=== PATIENT | male | born 1975 | race Caucasian/White ===

== ENCOUNTER 2017-06-07 09:42 | Outpatient (CLI) | payer MEDICAID ==
[~2017-06-07 09:42] MED LIST: GADOBUTROL 10 MMOL/10 ML VIAL ONE
[2017-06-07] MEDS ORDERED: GADOBUTROL 10 MMOL/10 ML VIAL IVP ONE (10:34)
--- NOTE | 2017-06-07 11:33 | MRI Report ---
EXAM: MRI LUMBAR SPINE WITHOUT AND WITH CONTRAST EXAM DATE: 06/07/2017 10:49 AM. CLINICAL HISTORY: 41-year-old man with numbness and weakness of the left leg. COMPARISONS: None. TECHNIQUE: Multiplanar, multisequence T1-weighted and fluid-sensitive sequences of the lumbar spine f rom T12 to S1 before and after administration of intravenous contrast. Other: None. IV contrast: 10 c c Gadavist. FINDINGS: Post surgical: Status post posterior fusion of L5-S1 with bilateral pedicle screws and posterior rods . Spinal Cord: The conus terminates at L1. Cauda equina nerve roots are normal in appearance. No abnorm al enhancement. Alignment: No significant spondylolisthesis or scoliosis. Bone Marrow: Five cxt-rnw-bpzhbks lumbar vertebral bodies are present. No gross fractures or bone les ions. No bone marrow edema or abnormal enhancement. Modic type II chronic degenerative endplate betts es are present at L5-S1. Disk Levels/Facets: T12-L1: Unremarkable. L1-L2: Unremarkable. L2-L3: Unremarkable. L3-L4: Unremarkable. L4-L5: There is mild disk desiccation and height loss. Small broad-based disk bulge is present withou t significant narrowing of the central canal. Facet hypertrophy and disk osteophyte complex in the west barticular spaces result in moderate to severe narrowing of the left neural foramen and moderate narr owing on the right. L5-S1: Interbody spacer is present and there is possible solid bony fusion across the disk space. Sta tus post posterior decompression. No significant central canal stenosis. The neural foramina are obsc ured by artifact from pedicle screws. Spinal Canal: No enhancing masses within the spinal canal. No epidural abscess. Musculature: Normal. No edema, abnormal enhancement, or fatty atrophy. Other: The visualized retroperitoneum is unremarkable. IMPRESSION: 1. Status post posterior fusion and decompression of L5-S1. 2. L4-L5: Moderate to severe narrowing of the left neural foramen and moderate narrowing on the right .. Comment: The following findings are so common in adults without low back pain that while we report th eir presence, they must be interpreted with caution and in the context of the clinical situation. (Re susan Sheikh et al, Spine 2001) Prevalence of findings in patients without low back pain: Disk degeneration (any evidence): 92% Disk desiccation/T2 signal loss: 83% Disk height loss: 56% Disk bulge: 64% Disk protrusion: 32% Annular tear/high intensity zone: 38% [facility] Referring Provider Line: [phone] SITE ID: [id number]
== END 2017-06-07 09:43 | disposition home or self-care (01) ==
LOC: DI 09:42
PROVIDERS: ATTEND Family Medicine
DX: M51.36 Other intervertebral disc degeneration, lumbar region (principal); M47.896 Other spondylosis, lumbar region; Z98.1 Arthrodesis status
CPT/HCPCS: 72158; A9585

== ENCOUNTER 2017-08-14 20:04 | Outpatient (CLI) | payer MEDICAID | END 2017-08-14 20:05 | disposition EMS.NT | LOC: EMS 20:04 | PROVIDERS: ATTEND Surgery | DX: R51 Headache (principal) ==

== ENCOUNTER 2017-08-22 08:24 | Outpatient (CLI) | payer MEDICAID ==
[2017-08-22] MEDS ORDERED: REGADENOSON 0.4 MG/5 ML SYRINGE IVP ONE ×2 (08:39→15:17)
[2017-08-22 16:54] VITALS: BP 114/80
--- NOTE | 2017-08-23 08:24 | Nuclear Medicine Report ---
EXAM: SINGLE-ISOTOPE PHARMACOLOGICAL STRESS TEST WITH REGADENOSON. SINGLE-ISOTOPE AND ONE-DAY REST/STRESS M YOCARDIAL PERFUSION SCANS WITH TOMOGRAPHIC IMAGING, QUANTITATIVE ANALYSIS, WALL MOTION ANALYSIS AND C ALCULATION OF EJECTION FRACTION. EXAM DATE: 08/22/2017 03:18 PM. CLINICAL HISTORY: CHEST PAIN. COMPARISON: None available. TECHNIQUE: After the intravenous administration of 9.6 mCi of Tc-99m sestamibi, a rest myocardial perfusion scan was done with tomography. Motion correction was applied when appropriate. After an appropriate delay, pharmacological stress was performed with the infusion of 0.4 mg regadeno son per protocol. According to protocol, 44 mCi of Tc-99m sestamibi was injected for stress myocardia l perfusion scan. Motion correction was applied when appropriate. Gated tomographic images were obtained for wall motion analysis and computation of left ventricular e jection fraction. FINDINGS: There is a small, mild, partially fixed and partially reversible defect in the distal infer ior wall. No other convincing fixed or reversible perfusion defects. Wall motion analysis demonstrates no focal wall motion abnormality. The left ventricular end-diastolic volume is 90 cc. The left ventricular end-systolic volume is 32 cc . The left ventricular ejection fraction is calculated to be 64%. IMPRESSION: 1. Small, mild, partially fixed and partially reversible defect in the distal inferior wall. No other convincing fixed or reversible perfusion defects. 2. Left ventricular ejection fraction of 64%. 3. Normal segmental and global wall motion. 4. Normal left ventricular cavity size, no change with stress. [facility] Referring Provider Line: [phone] SITE ID: [id number]
== END 2017-08-22 08:25 | disposition home or self-care (01) ==
LOC: DI 08:24
PROVIDERS: ATTEND Family Medicine
DX: R07.9 Chest pain, unspecified (principal)
CPT/HCPCS: 78452; 93017; A9500; J2785; 93016; 93018

== ENCOUNTER 2017-08-23 09:33 | Outpatient (CLI) | payer MEDICAID ==
[2017-08-23 14:18] LABS: ALBUMIN 4.4 g/dL (3.2-5.5); ALBUMIN/GLOBULIN RATIO 1.7 (1.0-2.2); ALKALINE PHOSPHATASE 82 IU/L (42-121); ALT ALANINE AMINOTRANSFERASE 37 IU/L (10-60); AST ASPARTATE AMINOTRANSFERASE 29 IU/L (10-42); BILIRUBIN,TOTAL 2.3 mg/dL (0.2-1.0); BUN - BLOOD UREA NITROGEN 13 mg/dL (6-20); CALCIUM 9.1 mg/dL (8.5-10.3); CARBON DIOXIDE - CO2 24 mmol/L (21-32); CHLORIDE 108 mmol/L (101-111); CHOL/HDL RATIO 4.2 (<5.0); CHOLESTEROL 150 mg/dL; CREATININE 0.9 mg/dL (0.6-1.2); GFR - MDRD 93 (>89); GLUCOSE 98 mg/dL (70-100); HDL CHOLESTEROL 36 mg/dL; LDL CHOLESTEROL,CALCULATED 88 mg/dL; LDL/HDL RATIO 2.4 (<3.6); SODIUM 140 mmol/L (135-145); VLDL CHOLESTEROL 26 mg/dL
== END 2017-08-23 09:34 | disposition home or self-care (01) ==
LOC: LAB.WCP 09:33
PROVIDERS: ATTEND Family Medicine
DX: E78.5 Hyperlipidemia, unspecified (principal)
CPT/HCPCS: 36415; 80053; 80061; 83721

== ENCOUNTER 2017-08-30 16:51 | Outpatient (CLI) | payer MEDICAID ==
--- NOTE | 2017-08-31 16:32 | MRI Report ---
EXAM: MRI BRAIN WITHOUT CONTRAST EXAM DATE: 08/30/2017 05:40 PM. CLINICAL HISTORY: Cogwheel rigidity, migraine. COMPARISON: None. TECHNIQUE: Multiplanar, multisequence T1-weighted and fluid-sensitive MR sequences of the brain were performed. Sequences optimized for routine evaluation. Other: None. IV Contrast: None. FINDINGS: The diffusion-weighted images are normal. There is no evidence of acute or subacute cerebral infarcti on. The pituitary and sella are normal. The craniocervical junction is normal. The corpus callosum is of normal size and configuration. The cerebral vascular flow voids are patent. There is an old lacunar infarction versus perivascular s pace within the right putamen measuring 4 mm. Overall, perivascular space would be favored. There are a few punctate nonspecific T2 hyperintensities of the subcortical white matter of the left frontal lobe. Cerebral volume and ventricular size are normal. The T2* sequence is normal. There is no evidence of subacute or chronic hemorrhage. The imaged portions of the paranasal sinuses are normally aerated. The bilateral parotid spaces exhib it normal signal intensity. The optic nerves demonstrate symmetric signal intensity and size. The cerebral vascular flow voids a re patent. IMPRESSION: 1. There are a few nonspecific punctate T2 hyperintensities of the subcortical white matter of the le ft frontal lobe. The overall appearance would favor that of hyperintensities seen in migraine. 2. There is a T2 hyperintense lesion demonstrated within the right putamen which overall would somewh at favor a perivascular space over that of an old lacunar infarction. Recommend correlation with clin ical symptoms. 3. There is no evidence of brain mass. 4. There is no evidence of acute or subacute cerebral infarction. Referring Provider Line: [phone] SITE ID: [id number]
== END 2017-08-30 16:52 | disposition home or self-care (01) ==
LOC: DI 16:51
PROVIDERS: ATTEND Family Medicine
DX: R29.898 Other symptoms and signs involving the musculoskeletal system (principal); G43.909 Migraine, unspecified, not intractable, without status migrainosus
CPT/HCPCS: 70551

== ENCOUNTER 2017-09-17 14:49 | Outpatient (CLI) | payer MEDICAID | END 2017-09-17 14:50 | LOC: LAB.WCP 14:49 | PROVIDERS: ATTEND Family Medicine | DX: M62.81 Muscle weakness (generalized) (principal); R29.898 Other symptoms and signs involving the musculoskeletal system | CPT/HCPCS: 36415; 83519 ==

== ENCOUNTER 2017-11-01 10:32 | Outpatient (CLI) | payer MEDICAID ==
[2017-11-01 12:42] LABS: BASOPHILS % (AUTO) 0.9 %; EOSINOPHILS # (AUTO) 0.2 10^3/uL (0.0-0.7); EOSINOPHILS % (AUTO) 3.9 %; HGB - HEMOGLOBIN 15.2 g/dL (14.0-18.0); LYMPHOCYTES # (AUTO) 1.2 10^3/uL (1.5-3.5); LYMPHOCYTES % (AUTO) 25.3 %; MEAN CORPUSCULAR HEMOGLOBIN 30.1 pg (27.0-31.0); MEAN CORPUSCULAR HGB CONC 34.2 g/dL (32.0-36.0); MEAN PLATELET VOLUME 7.7 fL (7.4-11.4); MONOCYTES # (AUTO) 0.4 10^3/uL (0.0-1.0); MONOCYTES % (AUTO) 7.7 %; NEUTROPHILS # (AUTO) 2.9 10^3/uL (1.5-6.6); NEUTROPHILS % (AUTO) 62.2 %; PLT - PLATELET COUNT 255 10^3/uL (130-450); RED BLOOD COUNT 5.06 10^6/uL (4.70-6.10); RED CELL DISTRIBUTION WIDTH 12.8 % (12.0-15.0); WHITE BLOOD COUNT 4.7 x10^3/uL (4.8-10.8)
[2017-11-01 12:57] LABS: ALBUMIN 4.2 g/dL (3.2-5.5); ALBUMIN/GLOBULIN RATIO 1.4 (1.0-2.2); ALKALINE PHOSPHATASE 76 IU/L (42-121); ALT ALANINE AMINOTRANSFERASE 27 IU/L (10-60); AST ASPARTATE AMINOTRANSFERASE 24 IU/L (10-42); BILIRUBIN,TOTAL 2.9 mg/dL (0.2-1.0); BUN - BLOOD UREA NITROGEN 14 mg/dL (6-20); CARBON DIOXIDE - CO2 24 mmol/L (21-32); CHLORIDE 105 mmol/L (101-111); CHOL/HDL RATIO 3.4 (<5.0); CHOLESTEROL 124 mg/dL; CREATININE 0.8 mg/dL (0.6-1.2); GFR - MDRD 107 (>89); GLUCOSE 107 mg/dL (70-100); HDL CHOLESTEROL 36 mg/dL; LDL CHOLESTEROL,CALCULATED 61 mg/dL; LDL/HDL RATIO 1.7 (<3.6); SODIUM 136 mmol/L (135-145); TOTAL PROTEIN 7.1 g/dL (6.7-8.2); VLDL CHOLESTEROL 27 mg/dL
== END 2017-11-01 10:33 | disposition home or self-care (01) ==
LOC: LAB.WCP 10:32
PROVIDERS: ATTEND Family Medicine
DX: E78.5 Hyperlipidemia, unspecified (principal); I10 Essential (primary) hypertension
CPT/HCPCS: 36415; 80053; 80061; 83721; 85025

== ENCOUNTER 2018-02-03 10:34 | Outpatient (CLI) | payer MEDICAID ==
--- NOTE | 2018-02-21 16:14 | Ultrasound Report ---
Reason: SCROTAL MASS Procedure Date: 02/03/2018 Accession Number: [id number] / [id number] Procedure: US - Testicle CPT Code: FULL RESULT: EXAM: SCROTAL ULTRASOUND EXAM DATE: 02/03/2018 12:29 PM. CLINICAL HISTORY: Scrotal mass. COMPARISON: None. TECHNIQUE: Real-time scanning was performed with static images obtained. Color-flow images were utilized. FINDINGS: Right: Testis: 5.2 x 3.1 x 3.4 cm. Normal size and echotexture. No mass, calcification, or abnormal blood flow. Epididymis: 1.4 x 0.8 x 1.2 cm. Normal size and echotexture. Note is made of epididymal head cysts. No suspicious mass or abnormal blood flow. Hydrocele: Small hydrocele. Within the hydrocele is a 0.7 cm mobile shadowing mass most compatible with a calcified calculus. Varicocele: None. Left: Testis: 4.5 x 2.2 x 3.0 cm. Normal size and echotexture. No mass, calcification, or abnormal blood flow. What appears is a geographically hypoechoic area in the left testicle is felt to represent variant appearance of the rete testis. Epididymis: 0.9 x 0.9 x 1.3 cm. Normal size and echotexture. No mass or abnormal blood flow. Hydrocele: None. Varicocele: None. IMPRESSION: Small right hydrocele containing what appears most compatible with a calcified calculus external to the testicle itself. The etiology and significance of this finding is unclear. [facility]
== END 2018-02-03 10:35 | disposition home or self-care (01) ==
LOC: DI 10:34
PROVIDERS: ATTEND Family Medicine
DX: N43.3 Hydrocele, unspecified (principal)
CPT/HCPCS: 76870

== ENCOUNTER 2018-06-17 09:15 | Outpatient (CLI) | payer MEDICAID ==
--- NOTE | 2018-06-17 12:40 | XRAY Report ---
Reason: LUMBAR RADICULOPATHY Procedure Date: 06/17/2018 Accession Number: [id number] / [id number] Procedure: WCP - Lumbar Spine 2 View CPT Code: FULL RESULT: EXAM: LUMBOSACRAL SPINE RADIOGRAPHY EXAM DATE: 06/17/2018 09:28 AM. CLINICAL HISTORY: Lumbar radiculopathy. COMPARISONS: Lumbar spine with and without contrast 06/07/2017 10:00 AM. TECHNIQUE: 2 views. FINDINGS: Alignment: Stable compared to 2018, no interval scoliosis or listhesis. Bones: Status post posterior L5-S1 fusion with interbody graft, evaluation of which is limited by motion on the lateral radiograph. Within this limitation, no overt failure is identified, stable arrangement compared to 2018. Five jah-vms-xzkfgec lumbar vertebral bodies are present. No fractures or bone lesions. Disks: Normal. Disk heights are maintained. Facets: Moderate facet arthropathy is seen at L4-L5 above the fused level. Sacroiliac Joints: Unremarkable. Soft Tissues: Normal. The visualized bowel gas pattern is normal. IMPRESSION: Limited lateral radiograph with no evidence of interval hardware failure. L4-L5 facet arthropathy. [facility]
== END 2018-06-17 09:16 | disposition home or self-care (01) ==
LOC: DI.WCP 09:15
PROVIDERS: ATTEND Family Medicine
DX: M47.9 Spondylosis, unspecified (principal); Z98.1 Arthrodesis status
CPT/HCPCS: 72100

== ENCOUNTER 2018-10-09 16:39 | Outpatient (CLI) | payer MEDICAID ==
--- NOTE | 2018-10-10 09:47 | XRAY Report ---
Reason: THUMB PAIN,LEFT Procedure Date: 10/09/2018 Accession Number: [id number] / [id number] Procedure: XR - Hand 3 View LT CPT Code: FULL RESULT: EXAM: LEFT HAND RADIOGRAPHY, 3 VIEWS EXAM DATE: 10/09/2018 04:46 PM. CLINICAL HISTORY: 43-year-old male with left-sided thumb pain. COMPARISON: None. TECHNIQUE: Frontal, lateral and oblique views. FINDINGS: Bones: Normal. No fractures or bone lesions. 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 Wrist joints unremarkable. No subluxations or joint effusion. Soft Tissues: Normal. No soft tissue swelling. 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 Generalized osteoarthritic changes in the IP joints, most prominent in the distal second through fifth digits and proximal fifth digit. No fracture or other osseous abnormality. [facility]
== END 2018-10-09 16:40 | disposition home or self-care (01) ==
LOC: DI 16:39
PROVIDERS: ATTEND Family Medicine
DX: M18.12 Unilateral primary osteoarthritis of first carpometacarpal joint, left hand (principal); M19.042 Primary osteoarthritis, left hand

== ENCOUNTER 2018-11-26 13:21 | Outpatient (CLI) | payer MEDICAID ==
--- NOTE | 2018-11-27 09:54 | XRAY Report ---
Reason: DYSPAGIA, UNSPECIFIED Procedure Date: 11/26/2018 Accession Number: [id number] / [id number] Procedure: FL - Modified Barium Swallow W/SP CPT Code: FULL RESULT: EXAM: MODIFIED BARIUM SWALLOW EXAM DATE: 11/26/2018 02:11 PM. CLINICAL HISTORY: Dysphagia, unspecified. COMPARISON: None. TECHNIQUE: Under the direction of speech pathology, patient swallowed various consistencies of barium under lateral fluoroscopic observation of the neck. Fluoroscopy Time: 36 seconds. Number of Images: 22. FINDINGS: Swallowing Mechanism: Normal oral phase and delayed swallowing reflex. Airway Protection: Delayed epiglottic motion. No episodes of tracheal penetration or aspiration with all consistencies of barium. Pharynx: Normal. No significant vallecular or piriform sinus contrast pooling. Other: None. IMPRESSION: Abnormal swallowing with no aspiration identified. [facility]
== END 2018-11-26 13:22 | disposition home or self-care (01) ==
LOC: DI 13:21
PROVIDERS: ATTEND Family Medicine
DX: R13.10 Dysphagia, unspecified (principal)
CPT/HCPCS: 74230

== ENCOUNTER 2019-02-14 08:00 | Outpatient (CLI) | payer MEDICAID ==
--- NOTE | 2019-02-16 00:19 | Ultrasound Report ---
Reason: HYPERBILIRUBINEMIA Procedure Date: 02/14/2019 Accession Number: [id number] / [id number] Procedure: US - Abdomen Limited CPT Code: FULL RESULT: EXAM: ABDOMEN ULTRASOUND LIMITED, RUQ EXAM DATE: 02/14/2019 08:42 AM. CLINICAL HISTORY: HYPERBILIRUBINEMIA. COMPARISON: None. TECHNIQUE: Real-time scanning was performed with static images obtained. FINDINGS: Liver: Diffusely echogenic. 20.2 cm. Main portal vein flow: Hepatopetal. Gallbladder: No stones, wall thickening, or sonographic Bailey's sign. Biliary System: CBD measures 6 mm. No intrahepatic ductal dilatation. Other: Right kidney demonstrates no hydronephrosis. Visualized portions of the pancreas are unremarkable. IMPRESSION: No acute sonographic abnormalities. Increased liver echogenicity, most commonly seen with steatosis. [facility]
== END 2019-02-14 08:01 | disposition home or self-care (01) ==
LOC: DI 08:00
PROVIDERS: ATTEND Nurse Practitioner Gerontology
DX: E80.6 Other disorders of bilirubin metabolism (principal)
CPT/HCPCS: 76705

== ENCOUNTER 2019-03-03 09:44 | Day surgery (SDC) | payer MEDICAID ==
[2019-03-03] MEDS ORDERED: LACTATED RINGERS 1,000 ML IV ONE (10:04)
[2019-03-03] MEDS ORDERED: LIDO GARGLE 30 ML BOTTLE ONE (10:59)
[2019-03-03] MEDS ORDERED: MIDAZOLAM 2 MG/2 ML VIAL IVP ONE (11:03)
[2019-03-03] MEDS ORDERED: fentaNYL 250 MCG/5 ML VIAL IVP ONE (11:03)
[2019-03-03] MEDS ORDERED: LIDO GARGLE 30 ML BOTTLE PO ONE (11:11)
[2019-03-03 11:52] VITALS: BP 123/100
== END 2019-03-03 09:45 | disposition home or self-care (01) ==
LOC: SDS 09:44
PROVIDERS: ATTEND Internal Medicine Gastroenterology
PROC: 0DB78ZX Excision of Stomach, Pylorus, Via Natural or Artificial Opening Endoscopic, Diagnostic (ICD-10-PCS; 2019-03-03)
PROC: 0DB18ZX Excision of Upper Esophagus, Via Natural or Artificial Opening Endoscopic, Diagnostic (ICD-10-PCS; 2019-03-03)
PROC: 0DB38ZX Excision of Lower Esophagus, Via Natural or Artificial Opening Endoscopic, Diagnostic (ICD-10-PCS; principal; 2019-03-03 11:30)
DX: R13.10 Dysphagia, unspecified (principal); K21.9 Gastro-esophageal reflux disease without esophagitis; K31.9 Disease of stomach and duodenum, unspecified; I10 Essential (primary) hypertension; F17.290 Nicotine dependence, other tobacco product, uncomplicated; Z79.899 Other long term (current) drug therapy; Z87.11 Personal history of peptic ulcer disease; Z98.1 Arthrodesis status; Z80.0 Family history of malignant neoplasm of digestive organs
CPT/HCPCS: 43239; A9270; J3010; J7120

== ENCOUNTER 2019-08-28 10:26 | Outpatient (CLI) | payer MEDICAID ==
--- NOTE | 2019-08-29 06:12 | XRAY Report ---
Reason: ARTHRODESIS Procedure Date: 08/28/2019 Accession Number: [id number] / [id number] Procedure: XR - Lumbar Spine Complete CPT Code: Final Report FULL RESULT: EXAM: LUMBOSACRAL SPINE RADIOGRAPHY EXAM DATE: 08/28/2019 10:42 AM. CLINICAL HISTORY: Arthrodesis. COMPARISONS: LUMBAR SPINE 2 VIEW 06/17/2018 9:14 AM. TECHNIQUE: 4 views. FINDINGS: Alignment: No acute malalignment. Mild anterolisthesis of L4 on L5. Bones and disks: Post L4-S1 posterior fusion and disk replacements. Hardware appears unremarkable. Other disk levels are well maintained. Soft Tissues: Normal. The visualized bowel gas pattern is normal. IMPRESSION: Satisfactory appearance post L4-S1 posterior fusion and disk replacements. [facility]
== END 2019-08-28 10:27 | disposition home or self-care (01) ==
LOC: DI 10:26
PROVIDERS: ATTEND Physician Assistant
DX: Z98.1 Arthrodesis status (principal)
CPT/HCPCS: 72110

== ENCOUNTER 2020-03-14 10:50 | Outpatient (CLI) | payer MEDICAID ==
[2020-03-14 18:41] LABS: BASOPHILS # (AUTO) 0.1 10^3/uL (0.0-0.1); EOSINOPHILS # (AUTO) 0.2 10^3/uL (0.0-0.7); EOSINOPHILS % (AUTO) 3.1 %; HGB - HEMOGLOBIN 14.9 g/dL (14.0-18.0); LYMPHOCYTES % (AUTO) 16.5 %; MEAN CORPUSCULAR HEMOGLOBIN 30.2 pg (27.0-31.0); MEAN CORPUSCULAR HGB CONC 33.3 g/dL (32.0-36.0); MEAN CORPUSCULAR VOLUME 90.5 fL (80.0-94.0); MEAN PLATELET VOLUME 9.8 fL (7.4-11.4); MONOCYTES # (AUTO) 0.4 10^3/uL (0.0-1.0); NEUTROPHILS # (AUTO) 4.5 10^3/uL (1.5-6.6); NEUTROPHILS % (AUTO) 73.1 %; PLT - PLATELET COUNT 267 10^3/uL (130-450); RED BLOOD COUNT 4.94 10^6/uL (4.70-6.10); RED CELL DISTRIBUTION WIDTH 12.5 % (12.0-15.0); WHITE BLOOD COUNT 6.1 x10^3/uL (4.8-10.8)
[2020-03-14 19:12] LABS: ALBUMIN 4.3 g/dL (3.2-5.5); ALBUMIN/GLOBULIN RATIO 1.6 (1.0-2.2); BILIRUBIN,TOTAL 3.6 mg/dL (0.2-1.0); CALCIUM 9.4 mg/dL (8.5-10.3); CREATININE 0.9 mg/dL (0.6-1.2)
== END 2020-03-14 23:59 | disposition home or self-care (01) ==
LOC: LAB.WCP 10:50
PROVIDERS: ATTEND Family Medicine
DX: E78.5 Hyperlipidemia, unspecified (principal); I10 Essential (primary) hypertension; E80.6 Other disorders of bilirubin metabolism; M54.16 Radiculopathy, lumbar region; K21.9 Gastro-esophageal reflux disease without esophagitis; F31.9 Bipolar disorder, unspecified
CPT/HCPCS: 36415; 80053; 84443; 85025

== ENCOUNTER → 2020-04-01 | Outpatient (CLI) | payer MEDICAID | LOC: LAB.WCP 08:00 | PROVIDERS: ATTEND Surgery | DX: Z01.818 Encounter for other preprocedural examination (principal); L72.9 Follicular cyst of the skin and subcutaneous tissue, unspecified; L72.3 Sebaceous cyst; Z20.828 Contact with and (suspected) exposure to other viral communicable diseases ==

== ENCOUNTER 2020-04-05 09:05 | Day surgery (SDC) | payer MEDICAID ==
[~2020-04-05 09:05] MED LIST changes: +BUPIVACAINE 0.25% PF 30 ML VIAL ONE; +BUPIVACAINE 0.5%-EPI 1:200000 PF 30 ML VIAL ONE; +CEFAZOLIN SODIUM IN 0.9 % NACL 2 GM/100 ML BAG IV ONE; -GADOBUTROL 10 MMOL/10 ML VIAL ONE; +LACTATED RINGERS 1,000 ML IV ONE
--- NOTE | 2020-04-05 10:11 | ANESTHESIA ---
Pre-Anesthesia VS, & Labs - Diagnosis right posterior leg cyst, left earlobe cyst - Procedure removal right posterior thigh cyst and left earlobe cyst Vital Signs: Temp Pulse Resp BP Pulse Ox 36.3 C L 85 16 129/89 H 96 04/05/20 09:10 04/05/20 09:10 04/05/20 09:10 04/05/20 09:10 04/05/20 09:10 Height: 6 ft 1 in Weight (kg): 98.2 kg Body Mass Index: 28.5 BMI Classification: Overweight - NPO >8 hours Home Medications and Allergies Home Medications: Ambulatory Orders Cholecalciferol [Vitamin D3] 50,000 unit PO OAW 03/29/20 Famotidine [Acid-Pep] 20 mg PO BID 03/29/20 Amitriptyline HCl 100 mg PO QPM 03/03/19 Clonidine HCl [Clonidine HCl ER] 0.2 mg PO QPM 03/03/19 [place] Carbonate 1,200 mg PO DAILY 03/03/19 Omeprazole 40 mg PO DAILY 03/03/19 Cholecalciferol [Vitamin D3] 50,000 unit PO OAW 03/29/20 Famotidine [Acid-Pep] 20 mg PO BID 03/29/20 Allergies/Adverse Reactions: Allergies Allergy/AdvReac Type Severity Reaction Status Date / Time No Known Drug Allergies Allergy Verified 03/03/19 10:07 Anes History & Medical History - Anesthetic History Anesthesia Complications: reports: No previous complications - Medical History Cardiovascular: reports: Hypertension, High cholesterol Pulmonary: reports: None Gastrointestinal: reports: GERD Urinary: reports: None Musculoskeletal: reports: Chronic back pain Endocrine/Autoimmune: reports: None Skin: reports: None Psychosocial: reports: Cannabis History of Cancer?: No - Surgical History Eyes Ears Nose Throat (EENT): Tonsil/Adenoidectomy Orthopedic: Spine surgery, Other Exam General: Alert Dental: WNL, Other (several missing) Mouth Opening: Greater than 4 Fingerbreadths Neck Mobility: Normal Mallampati classification: II Thyromental Distance: greater than 6 cm Respiratory: Lungs clear Cardiovascular: Regular rate Plan Anesthesia Type: General Consent for Procedure(s) Verified and Reviewed: Yes Code Status: Attempt Resuscitation ASA classification: 2-Mild systemic disease Is this case an emergency?: No
[2020-04-05] MEDS ORDERED: ATROPINE ABBOJECT 1 MG/10 ML SYRINGE IVP PRN (10:13)
[2020-04-05] MEDS ORDERED: ONDANSETRON 4 MG/2 ML VIAL IVP PRN (10:13)
[2020-04-05] MEDS ORDERED: MORPHINE 2 MG/ML CARPUJECT IVP PRN (10:13)
[2020-04-05] MEDS ORDERED: NALOXONE 0.4 MG/ML VIAL IVP PRN (10:13)
[2020-04-05] MEDS ORDERED: fentaNYL 100 MCG/2 ML VIAL IVP PRN (10:13)
[2020-04-05] MEDS ORDERED: METOCLOPRAMIDE 10 MG/2 ML VIAL IVP PRN (10:13)
[2020-04-05] MEDS ORDERED: ePHEDrine 50 MG/ML VIAL IVP PRN (10:13)
[2020-04-05] MEDS ORDERED: HYDROmorphone 0.5 MG/0.5 ML SYRINGE IVP PRN (10:13)
[2020-04-05] MEDS ORDERED: BACITRACIN ZINC OINT 1 PACKET TOP ONE (10:47)
[2020-04-05] MEDS ORDERED: MIDAZOLAM 2 MG/2 ML VIAL ONE (10:49)
[2020-04-05] MEDS ORDERED: PROPOFOL 200 MG/20 ML VIAL IVP ONE (10:50)
[2020-04-05] MEDS ORDERED: LIDOCAINE-MPF 2% 5 ML VIAL ONE (10:50)
[2020-04-05] MEDS ORDERED: LACTATED RINGERS 1,000 ML IV SCH (11:00)
[2020-04-05] MEDS ORDERED: BUPIVACAINE 0.25% PF 30 ML VIAL SUBQ ONE ×2 (11:17)
[2020-04-05] MEDS ORDERED: ONDANSETRON 4 MG/2 ML VIAL ONE (11:21)
[2020-04-05] MEDS ORDERED: DEXAMETHASONE 4 MG/ML VIAL ONE (11:21)
[2020-04-05] MEDS ORDERED: KETOROLAC 30 MG/ML VIAL ONE (12:02)
[2020-04-05] MEDS ORDERED: oxyCODONE 5 MG TABLET PO PRN (12:07)
--- NOTE | 2020-04-05 12:12 | OPERATIVE REPORT ---
Operative Report - General Procedure Date: 04/05/20 Planned Procedure: removal left ear lobe cysts and right thigh cyst Pre-Op Diagnosis: left ear lobe cysts and right thigh cyst Procedure Performed: as above Post Op Diagnosis: as above - Procedure Note Primary Surgeon: anibal varela Anesthesia Technique: General LMA, Local Pathology: benign cysts. not sent Estimated Blood Loss (mL): 0 Complications: none
[2020-04-05] MEDS ORDERED: LACTATED RINGERS 1,000 ML IV ONE (12:16)
[2020-04-05 13:02] VITALS: BP 141/97
[2020-04-05] MEDS ORDERED: oxyCODONE 5 MG TABLET ONE (13:04)
--- NOTE | 2020-04-05 13:11 | ANESTHESIA POST OP EVALUATION ---
Anesthesia Post Eval - Post Anesthesia Eval Vitals: Last Vital Signs Temp 36.4 C L 04/05/20 13:01 Pulse 78 04/05/20 13:01 Resp 12 04/05/20 13:01 BP 141/97 H 04/05/20 13:01 Pulse Ox 100 04/05/20 13:01 CV Function Including HR & BP: positive: Stable Pain Control: positive: Satisfactory Nausea & Vomiting: positive: Negative Mental Status: positive: Baseline Respiratory Status: Airway Patent Hydration Status: Satisfactory Anesthesia Complications: positive: None
--- NOTE | 2020-04-05 21:52 | OPERATIVE REPORT ---
DATE OF SERVICE: 04/05/2020 Physician: Andrei Yancey MD PREOPERATIVE DIAGNOSES 1. Left earlobe epidermal inclusion cysts measuring approximately 3 mm and 5 mm. 2. Right thigh epidermal inclusion cyst measuring approximately 2.5 x 3 cm. POSTOPERATIVE DIAGNOSES 1. Left earlobe epidermal inclusion cysts measuring approximately 3 mm and 5 mm. 2. Right thigh epidermal inclusion cyst measuring approximately 2.5 x 3 cm. PROCEDURE 1. Excision of 2 left earlobe cysts. 2. Intermediate repair total 1 cm earlobe skin. 3. Excision of right thigh epidermal inclusion cyst. 4. Intermediate repair, total incision length 3 cm. SURGEON: Andrei Yancey MD ESTIMATED BLOOD LOSS: None. ANESTHESIA 1. Laryngeal mask anesthesia. 2. Local anesthesia with Marcaine. COMPLICATIONS: None. SPECIMEN: Clinically benign, not sent for pathology. INDICATIONS FOR PROCEDURE: The patient is a 44-year-old gentleman with waxing and waning left earlobe cyst inflammation and periodic infection. He has also had waxing and waning right thigh cyst inflammation and infection. He presents at a time when clinically improved. Cyst excision was recommended. Risks discussed, alternatives discussed, all questions answered, and consent obtained. DETAILS OF PROCEDURE: The patient was properly identified, brought to the operating room, and placed in a supine position. Laryngeal mask anesthesia was induced. He was prepped and draped in a sterile fashion, given preoperative antibiotics. Local anesthetic without epinephrine was also given. The right thigh cyst was first addressed. An elliptical incision oriented vertically was made around the area of periodic inflammation and with epidermal inclusion cyst. Dissection proceeded sharply followed by cutting current cautery. The cyst and surrounding inflammatory tissue was removed in its entirety back to normal healthy tissue. Hemostasis was achieved with cautery. Intermediate repair was performed. Deep subcutaneous tissue was closed with a running 2-0 Vicryl suture. Buried interrupted subdermal 3-0 Vicryl sutures were then placed. Skin was closed with a running 4-0 Monocryl subcuticular suture. Steri-Strips and dressing were applied. He tolerated this procedure well. His left ear and cheek was then prepped and draped in a sterile fashion. Again, the vertical incisions were made directly around the cyst, removing them in their entirety. Intermediate repair was performed with buried interrupted 4-0 Monocryl, followed by a running closure with 5-0 Prolene. Bacitracin was placed as a dressing. He tolerated the procedures well, was awakened and brought to recovery in good condition. TD: 04/05/2020 21:32 LUCIANA
== END 2020-04-05 09:06 | disposition home or self-care (01) ==
LOC: SDS 09:05
PROVIDERS: ATTEND Surgery
DX: L72.0 Epidermal cyst (principal); I10 Essential (primary) hypertension; F17.290 Nicotine dependence, other tobacco product, uncomplicated
CPT/HCPCS: 11403; 11440; 12032; 12051; A9270; J0690; J7120

== ENCOUNTER 2020-05-09 08:00 | Outpatient (CLI) | payer MEDICAID ==
[2020-05-09 18:48] LABS: BILIRUBIN,DIRECT 0.3 mg/dL (0.1-0.5); BILIRUBIN,INDIRECT 2.3 mg/dL; BILIRUBIN,TOTAL 2.6 mg/dL (0.2-1.0)
== END 2020-05-09 23:59 | disposition home or self-care (01) ==
LOC: LAB.WCP 08:00
PROVIDERS: ATTEND Family Medicine
DX: E80.6 Other disorders of bilirubin metabolism (principal)
CPT/HCPCS: 36415; 82247; 82248

== ENCOUNTER 2020-06-30 07:00 | Outpatient (CLI) | payer MEDICAID ==
--- NOTE | 2020-06-30 12:25 | XRAY Report ---
PROCEDURE: Abdomen Acute INDICATIONS: RUQ PAIN TECHNIQUE: One view chest and two views of the abdomen were acquired. COMPARISON: Lumbosacral spine plain film imaging 08/28/2019. FINDINGS: Surgical changes and devices: Prior lumbosacral spine fusion, no evidence of loosening or disruption. . Chest: Lungs are clear. Heart size is normal. No pleural effusions. No pneumoperitoneum. Abdomen: Bowel gas pattern is normal. No suspicious calcifications. Visualized solid organ contour s appear normal. Bones: No suspicious bony lesions. IMPRESSION: Bowel gas pattern is normal, no free air seen. No sign of intestinal obstruction or perf oration. Prior lumbosacral spine fusion procedure, appearing stable over time. Reviewed by: Duane Rosas MD on 06/30/2020 11:23 AM [facility] Approved by: Duane Rosas MD on 06/30/2020 11:23 AM [facility] Station ID: [id number]
== END 2020-06-30 23:59 | disposition home or self-care (01) ==
LOC: DI.N 07:00
PROVIDERS: ATTEND Physician Assistant Medical
DX: R10.11 Right upper quadrant pain (principal)
CPT/HCPCS: 36415; 80053; 81001; 83690; 85025; 87086

== ENCOUNTER 2020-06-30 08:00 | Outpatient (CLI) | payer MEDICAID ==
[2020-06-30 14:10] LABS: BASOPHILS # (AUTO) 0.1 10^3/uL (0.0-0.1); BASOPHILS % (AUTO) 1.2 %; EOSINOPHILS # (AUTO) 0.2 10^3/uL (0.0-0.7); EOSINOPHILS % (AUTO) 3.8 %; HCT - HEMATOCRIT 43.3 % (42.0-52.0); HGB - HEMOGLOBIN 14.4 g/dL (14.0-18.0); LYMPHOCYTES % (AUTO) 20.4 %; MEAN CORPUSCULAR HEMOGLOBIN 30.2 pg (27.0-31.0); MEAN CORPUSCULAR HGB CONC 33.3 g/dL (32.0-36.0); MEAN CORPUSCULAR VOLUME 90.8 fL (80.0-94.0); MEAN PLATELET VOLUME 9.6 fL (7.4-11.4); MONOCYTES # (AUTO) 0.3 10^3/uL (0.0-1.0); MONOCYTES % (AUTO) 6.6 %; NEUTROPHILS # (AUTO) 3.4 10^3/uL (1.5-6.6); NEUTROPHILS % (AUTO) 67.8 %; PLT - PLATELET COUNT 283 10^3/uL (130-450); RED BLOOD COUNT 4.77 10^6/uL (4.70-6.10)
[2020-06-30 14:26] LABS: BILIRUBIN,URINE NEGATIVE (NEGATIVE); GLUCOSE, URINE (UA) NEGATIVE (NEGATIVE); KETONES,URINE (UA) NEGATIVE (NEGATIVE); LEUKOCYTE ESTERASE, URINE NEGATIVE (NEGATIVE); NITRITE,URINE NEGATIVE (NEGATIVE); OCCULT BLOOD,URINE NEGATIVE (NEGATIVE); PH,URINE 7.5 PH (5.0-7.5); PROTEIN,URINE NEGATIVE (NEGATIVE); UROBILINOGEN,URINE 0.2 (NORMAL) E.U./dL (NORMAL)
[2020-06-30 14:27] LABS: CLARITY,URINE CLEAR (CLEAR)
[2020-06-30 14:42] LABS: ALBUMIN 4.6 g/dL (3.2-5.5); ALBUMIN/GLOBULIN RATIO 1.6 (1.0-2.2); BILIRUBIN,TOTAL 1.7 mg/dL (0.2-1.0); CALCIUM 10.1 mg/dL (8.5-10.3); CREATININE 0.8 mg/dL (0.6-1.2); POTASSIUM 3.8 mmol/L (3.5-5.0); TOTAL PROTEIN 7.4 g/dL (6.7-8.2)
[2020-06-30 14:52] LABS: RBC,URINE None Seen /HPF (0-5); SQUAMOUS EPITHELIAL CELL,UR RARE Squamous (<= Few); WBC,URINE 0-3 /HPF (0-3)
[2020-06-30 14:53] LABS: AMORPHOUS SEDIMENT,UR Few /LPF; BACTERIA,URINE Few /HPF (None Seen)
== END 2020-06-30 23:59 | disposition home or self-care (01) ==
LOC: LAB.N 08:00
PROVIDERS: ATTEND Physician Assistant Medical
DX: R10.11 Right upper quadrant pain (principal)
CPT/HCPCS: 36415; 80053; 81001; 83690; 85025; 87086

== ENCOUNTER 2020-12-30 08:32 | Outpatient (CLI) | payer MEDICAID ==
--- NOTE | 2020-12-30 10:17 | XRAY Report ---
PROCEDURE: Cervical Spine 2 View INDICATIONS: CHRONIC ATRAUMATIC NECK PAIN TECHNIQUE: 4 view(s) of the cervical spine were acquired. COMPARISON: 02/26/2018 FINDINGS: Bones: C5-C7 fusion hardware is intact. There is stable bone alignment from C5 through C7. Kyphosis of the upper cervical spine is present with the apex at the C3-4 level. There is grade 1 retrolisthes is C4 on 5, similar compared to prior. There are severe degenerative changes at the atlantodental int erval the lateral masses of C1 on C2 appear normal. Anterior disc height loss at C2-3 and diffuse dis c height loss at C3-4 stable. Diffuse moderate C4-5 disc height loss is also stable. No fractures or pathologic subluxation. Soft tissues: No prevertebral soft tissue swelling. IMPRESSION: 1. Stable anterior fusion hardware and osseous fusion of C5-C7. 2. Stable upper cervical kyphosis and retrolisthesis with the apex at C3-4 Reviewed by: Michelle Alonzo MD on 12/30/2020 10:15 AM PDT Approved by: Michelle Alonzo MD on 12/30/2020 10:15 AM PDT Station ID: [id number]
== END 2020-12-30 23:59 | disposition home or self-care (01) ==
LOC: DI.N 08:32
PROVIDERS: ATTEND Physician Assistant Medical
DX: M54.2 Cervicalgia (principal); Z98.1 Arthrodesis status; M43.12 Spondylolisthesis, cervical region; M40.202 Unspecified kyphosis, cervical region

== ENCOUNTER 2021-05-26 08:00 | Outpatient (CLI) | payer MEDICAID | END 2021-05-26 23:59 | LOC: LAB.N 08:00 | PROVIDERS: ATTEND Nurse Practitioner | DX: R05.9 Cough, unspecified (principal); Z20.822 Contact with and (suspected) exposure to COVID-19 ==

== ENCOUNTER 2021-08-24 09:00 | Outpatient (CLI) | payer MEDICAID ==
--- NOTE | 2021-08-24 10:14 | CT Report ---
PROCEDURE: CERVICAL SPINE WO INDICATIONS: CERVICALGIA, SP CERVICAL SPINAL FUSION TECHNIQUE: Noncontrast 3 mm thick sections acquired from the skull base to the T4 level. Sagittal and coronal r eformats were then constructed. For radiation dose reduction, the following was used: automated exp osure control, adjustment of mA and/or kV according to patient size. COMPARISON: Correlation is made with the common cervical spine plain films, 08/24/2021. Correlation is made with the prior cervical spine MRI, 07/26/2021. FINDINGS: Image quality: Excellent. Bones: No fractures or dislocations. Visualized superior ribs are intact. Anterior fixation hardware is seen, with a fusion plate at C5, C6, and C7. Disc spacers are seen with in the postoperative region. No findings of hardware failure or hardware loosening can be seen. Focal degenerative change can also be seen involving the C1-C2 interface anteriorly. There is at leas t moderate disc space narrowing seen at C3-C4. Associated endplate irregularity and sclerosis can be seen. Moderate disc osteophyte complex is seen. There is moderate to severe left-sided and at least moderate right-sided neuroforaminal narrowing. Moderate central canal narrowing is seen. Milder de generative changes are seen elsewhere. Soft tissues: Prevertebral soft tissues are normal in thickness. No paravertebral hematomas. No ap ical pneumothoraces. Mild emphysematous changes are seen in the lung apices, with subpleural bleb fo rmation. IMPRESSION: Unremarkable lower cervical spine fixation hardware. Focal C3-C4 degenerative change. Reviewed by: Johnathan Victor MD on 08/24/2021 9:13 AM [facility] Approved by: Johnathan Victor MD on 08/24/2021 9:13 AM [facility] Station ID: [id number]
--- NOTE | 2021-08-24 18:07 | XRAY Report ---
PROCEDURE: Cervical Spine 2 View INDICATIONS: CERVICALGIA, SPINAL FUSION TECHNIQUE: 3 view(s) of the cervical spine were acquired. COMPARISON: None. FINDINGS: Bones: No fractures or dislocations to the C7-T1 level. Anterior fusion is present at C5-C7, with diaz rdware intact. There is slight angulation at C2-3 with trace retrolisthesis of C4 on C5. The lateral masses of C1 appear intact on the odontoid view. No suspicious bony lesions. There is normal range of motion between flexion and extension. Angulation at C2-3 reduces with both flexion and extension. Multilevel moderate to severe disc space narrowing is present throughout the cervical spine. Soft tissues: No prevertebral soft tissue swelling. IMPRESSION: Spinal fusion as above. Reviewed by: Wendy Peña MD on 08/24/2021 5:05 PM [facility] Approved by: Wendy Peña MD on 08/24/2021 5:05 PM [facility] Station ID: [id number]
== END 2021-08-24 09:01 | disposition home or self-care (01) ==
LOC: DI 09:00
PROVIDERS: ATTEND Neurological Surgery
DX: M54.12 Radiculopathy, cervical region (principal); M54.2 Cervicalgia; Z98.1 Arthrodesis status

== ENCOUNTER 2022-01-09 09:02 | Outpatient (CLI) | payer MEDICAID ==
[2022-01-09] MEDS ORDERED: GADOBUTROL 10 MMOL/10 ML VIAL IVP ONE (10:00)
--- NOTE | 2022-01-09 12:18 | MRI Report ---
PROCEDURE: Brain W/WO INDICATIONS: NYSTAGMUS, DOUBLE VISION, WORD FINDING DIFFICULTY CONTRAST: IV CONTRAST: Gadavist ml: 8.6 TECHNIQUE: Noncontrast axial T1 spin echo, axial T2 fast spin echo, sagittal and axial FLAIR, coronal T2 fast sp in echo, axial gradient echo, axial diffusion and ADC through the brain. After the administration of contrast, axial and coronal T1 spin echo with fat saturation through the brain. COMPARISON: None. FINDINGS: Image quality: Excellent. CSF spaces: Basal cisterns are patent. No extra-axial fluid collections. Ventricles are normal in size and shape. Brain: No midline shift. No intracranial bleeds or masses. No abnormal intracranial enhancement. There is cerebral volume loss for age. There is periventricular white matter chronic small vessel is chemic change. The brainstem appears normal. Diffusion-weighted images demonstrate no acute ischemi c insults. No chronic ischemic insults. Normal intravascular flow voids are present. Skull and face: Calvarial marrow is normal in signal. Orbits appear normal. Sinuses: Sinuses and mastoids appear clear. IMPRESSION: 1. No acute intracranial process. Reviewed by: Wendy Peña MD on 01/09/2022 12:17 PM PDT Approved by: Wendy Peña MD on 01/09/2022 12:17 PM PDT Station ID: [id number]
[2022-01-09] MEDS ORDERED: GADOBUTROL 10 MMOL/10 ML VIAL ONE (12:22)
== END 2022-01-09 09:03 | disposition home or self-care (01) ==
LOC: DI 09:02
PROVIDERS: ATTEND Family Medicine
DX: H55.00 Unspecified nystagmus (principal); H53.2 Diplopia; R41.89 Other symptoms and signs involving cognitive functions and awareness; R41.3 Other amnesia; G24.01 Drug induced subacute dyskinesia; F31.9 Bipolar disorder, unspecified
CPT/HCPCS: 70553; A9585

== ENCOUNTER 2022-05-08 08:36 | Emergency (ER) | payer MEDICAID ==
[2022-05-08 09:04] LABS: BASOPHILS % (AUTO) 0.7 %; EOSINOPHILS # (AUTO) 0.2 10^3/uL (0.0-0.7); EOSINOPHILS % (AUTO) 4.8 %; HCT - HEMATOCRIT 40.3 % (42.0-52.0); HGB - HEMOGLOBIN 13.7 g/dL (14.0-18.0); LYMPHOCYTES # (AUTO) 1.1 10^3/uL (1.5-3.5); LYMPHOCYTES % (AUTO) 23.4 %; MEAN CORPUSCULAR HEMOGLOBIN 30.6 pg (27.0-31.0); MEAN CORPUSCULAR VOLUME 90.2 fL (80.0-94.0); MEAN PLATELET VOLUME 9.5 fL (7.4-11.4); MONOCYTES # (AUTO) 0.3 10^3/uL (0.0-1.0); MONOCYTES % (AUTO) 6.5 %; NEUTROPHILS % (AUTO) 64.6 %; PLT - PLATELET COUNT 217 10^3/uL (130-450); RED BLOOD COUNT 4.47 10^6/uL (4.70-6.10); RED CELL DISTRIBUTION WIDTH 12.2 % (12.0-15.0); WHITE BLOOD COUNT 4.6 x10^3/uL (4.8-10.8)
[2022-05-08 09:17] VITALS: BP 129/83
[2022-05-08 09:20] LABS: ALBUMIN 4.2 g/dL (3.2-5.5); ALBUMIN/GLOBULIN RATIO 1.8 (1.0-2.2); BILIRUBIN,TOTAL 1.6 mg/dL (0.2-1.0); CALCIUM 8.8 mg/dL (8.5-10.3); CREATININE 0.8 mg/dL (0.6-1.2); POTASSIUM 3.4 mmol/L (3.5-5.0); TOTAL PROTEIN 6.6 g/dL (6.7-8.2)
[2022-05-08] MEDS ORDERED: MORPHINE 2 MG/ML CARPUJECT IVP STA (10:06)
[2022-05-08] MEDS ORDERED: iohexoL-300 100 ML VIAL ONE (10:41)
--- NOTE | 2022-05-08 11:36 | CT Report ---
PROCEDURE: HEAD WO INDICATIONS: fall from ladder TECHNIQUE: Noncontrast 4.5 mm thick angled axial sections acquired from the foramen magnum to the vertex. For r adiation dose reduction, the following was used: automated exposure control, adjustment of mA and/or kV according to patient size. COMPARISON: None. FINDINGS: Image quality: Excellent. CSF spaces: Basal cisterns are patent. No extra-axial fluid collections. Ventricles are normal in size and shape. Brain: No midline shift. No intracranial masses or hemorrhage. Schaeffer-white matter interface is norm al. Skull and face: Calvarium and visualized facial bones are intact, without suspicious lesions. Sinuses: Visualized sinuses and mastoids are clear. IMPRESSION: 1. No acute intracranial process. Reviewed by: Wendy Peña MD on 05/08/2022 11:35 AM [facility] Approved by: Wendy Peña MD on 05/08/2022 11:35 AM [facility] Station ID: [id number]
--- NOTE | 2022-05-08 11:38 | CT Report ---
PROCEDURE: CERVICAL SPINE WO INDICATIONS: fall from ladder/pain TECHNIQUE: Noncontrast 3 mm thick sections acquired from the skull base to the T4 level. Sagittal and coronal r eformats were then constructed. For radiation dose reduction, the following was used: automated exp osure control, adjustment of mA and/or kV according to patient size. COMPARISON: CT head 05/08/2022, CT cervical spine 08/24/2021. FINDINGS: Image quality: Excellent. Bones: No fractures or dislocations. Visualized superior ribs are intact. Fusion is present from C5 through C7. Multilevel degenerative changes are present. Soft tissues: Prevertebral soft tissues are normal in thickness. No paravertebral hematomas. No ap ical pneumothoraces. IMPRESSION: No visualized fracture. Reviewed by: Wendy Peña MD on 05/08/2022 11:37 AM [facility] Approved by: Wendy Peña MD on 05/08/2022 11:37 AM [facility] Station ID: [id number]
--- NOTE | 2022-05-08 11:41 | CT Report ---
PROCEDURE: CHEST W INDICATIONS: fall from ladder/pain CONTRAST:100ml Omnipaque 300 TECHNIQUE: After the administration of intravenous contrast, 1 mm axial images were acquired from the pulmonary apices through the posterior costophrenic angles. Axial 5 mm soft tissue kernel reconstructions were performed as well as 8 mm axial MIP and coronal and sagittal 5 mm reformations. For radiation dose reduction, the following was used: automated exposure control, adjustment of mA and/or kV according to patient size. COMPARISON: None. FINDINGS: Image quality: Excellent. Lungs and pleura: No acute air space opacities. Linear opacities are present predominantly within t he bases suggestive of scarring versus atelectasis. No pleural effusions or pneumothorax. Central an d peripheral airways are patent and normal in caliber. Mediastinum: Heart size is normal. No pericardial effusion. No mediastinal or hilar adenopathy by size criteria. Thoracic aorta and central pulmonary arteries are normal in size. Esophagus is nelson l in caliber. No hiatal hernia. Bones and chest wall: No suspicious bony lesions. No vertebral body compression fractures. No axil cheikh or supraclavicular adenopathy by size criteria. The thyroid is normal in size and there are no incidental findings.. Partially visualized lumbar fixation rods and anterior cervical fusion are note d. Abdomen: Visualized upper abdominal solid organs appear normal. Upper abdominal bowel loops are nor mal in caliber. IMPRESSION: No visualized acute osseous or visceral injury. CLINICAL RECOMMENDATION STATEMENTS: In patients <35 years with an ITN detected on CT, MRI, or extrathyroidal ultrasound, the Committee re commends further evaluation with dedicated thyroid ultrasound if the nodule is "e1 cm and has no susp icious imaging features, and if the patient has normal life expectancy. In patients "e35 years with an ITN detected on CT, MRI, or extrathyroidal ultrasound, the Committee r ecommends further evaluation with dedicated thyroid ultrasound if the nodule is "e1.5 cm and has no s uspicious imaging features, and if the patient has normal life expectancy. (ACR, 2014) Reviewed by: Wendy Peña MD on 05/08/2022 11:40 AM PST Approved by: Wendy Peña MD on 05/08/2022 11:40 AM PST Station ID: [id number]
--- NOTE | 2022-05-08 11:51 | ED Physician Documentation ---
History of Present Illness - Stated complaint Stated Complaint: 5FT FALL FROM LADDER/NECK SHOULDER BACK/PX - Chief complaint Chief Complaint: Trauma Ch/Bk - History obtained from History obtained from: Patient - Additonal information Additional information: Patient is a 46-year-old with a history of tardive dyskinesia presenting for evaluation of her a fall from a ladder where he was approximately 5 feet off the ground. Patient reports he was on the ladder trying to cut a piece of antenna when he lost his balance and fell backwards. He did strike his head. He reports having poor memory at baseline is unsure if he had LOC.He reports pain to the neck and upper back.Denies any prodromal symptoms prior to the fall and states it was just due to a loss of His footing while he was on the ladder. He does not take a blood thinner.EMS was called and patient was transported with a cervical collar in place. Review of Systems Constitutional: denies: Fever Nose: denies: Congestion Cardiac: denies: Chest pain / pressure Respiratory: denies: Dyspnea GI: denies: Abdominal Pain Musculoskeletal: reports: Neck pain Neurologic: reports: Headache, Head injury PD PAST MEDICAL HISTORY - Past Medical History Cardiovascular: Hypertension, High cholesterol Respiratory: None Endocrine/Autoimmune: None GI: GERD : None HEENT: Chronic vision loss Psych: Bipolar disorder, Post traumatic stress disorder Musculoskeletal: Chronic back pain Derm: None - Past Surgical History Ortho: Spine surgery, Other HEENT: Tonsil/Adenoidectomy - Present Medications Home Medications: Ambulatory Orders Medication Instructions Recorded Confirmed [place] Carbonate 1,200 mg PO DAILY 03/03/19 05/08/22 Cholecalciferol [Vitamin D3] 50,000 unit PO OAW 03/29/20 05/08/22 Deutetrabenazine [Austedo] 12 mg ORAL TID 05/08/22 05/08/22 Dextroamphetamine/Amphetamine 15 mg ORAL TID 05/08/22 05/08/22 [Adderall 15 mg Tablet] [place] ER [Lithobid] 300 mg ORAL HS 05/08/22 05/08/22 clonazePAM [Clonazepam] 1 mg ORAL TID 05/08/22 05/08/22 lamoTRIgine [Lamictal] 200 mg PO DAILY PM 05/08/22 05/08/22 - Allergies Allergies/Adverse Reactions: Allergies Allergy/AdvReac Type Severity Reaction Status Date / Time No Known Drug Allergies Allergy Verified 03/03/19 10:07 PD ED PE NORMAL - General General: Alert and oriented X 3, No acute distress, Well developed/nourished - HEENT HEENT: Atraumatic - Neck Neck: Supple, no meningeal sign, No bony TTP (Mild midline cervical tenderness, c-collar kept in place). No: C-Spine cleared by NEXUS criteria - Cardiac Cardiac: RRR, No murmur - Respiratory Respiratory: No respiratory distress, Clear bilaterally - Abdomen Abdomen: Soft, Non tender - Back Back: No spinal TTP - Derm Derm: Warm and dry - Extremities Extremities: No deformity - Neuro Neuro: Alert and oriented X 3, gas manager 2-12 intact, No motor deficit, No sensory deficit, Normal speech Eye Opening: Spontaneous Motor: Obeys Commands Verbal: Oriented GCS Score: 15 Results - Vitals Vitals: Vital Signs - 24 hr 05/08/22 05/08/22 08:48 09:16 Temperature 36.6 C Heart Rate 69 63 Respiratory 18 18 Rate Blood Pressure 134/83 H 129/83 H O2 Saturation 98 99 Oxygen O2 Source Room air - Labs Labs: Laboratory Tests 05/08/22 05/08/22 09:00 09:00 WBC 4.6 L RBC 4.47 L Hgb 13.7 L Hct 40.3 L MCV 90.2 MCH 30.6 MCHC 34.0 RDW 12.2 Plt Count 217 MPV 9.5 Neut # (Auto) 3.0 Lymph # (Auto) 1.1 L [place] # (Auto) 0.3 Eos # (Auto) 0.2 Baso # (Auto) 0.0 Absolute Nucleated RBC 0.00 Nucleated RBC % 0.0 Sodium 135 Potassium 3.4 L Chloride 103 Carbon Dioxide 24 Anion Gap 8.0 BUN 11 Creatinine 0.8 Estimated GFR (MDRD) 105 Glucose 109 H Calcium 8.8 Total Bilirubin 1.6 H AST 21 ALT 21 Alkaline Phosphatase 63 Total Protein 6.6 L Albumin 4.2 Globulin 2.4 Albumin/Globulin Ratio 1.8 PD Medical Decision Making - ED course Complexity details: reviewed results, re-evaluated patient, d/w patient, d/w family (Son at bedside) ED course: Patient was evaluated after fall from 5 foot ladder and hitting his head with questionable LOC. Patient also reported having some neck pain and upper back pain.CT of the head was obtained given the possibility for LOC As patient was unclear and presence of headache and was negative For intracranial bleed. CT head and chest were also obtained Without acute findings. I did clear patient's cervical collar from ligamentous injury on exam as well.Patient declined need for any pain medication. He is counseled on continued supportive care for any areas of pain and need for follow-up with PCP.He is ambulatory at discharge. Departure - Departure Disposition: 01 Home, Self Care Clinical Impression: Upper back strain Head injury Qualifiers: Encounter type: initial encounter Qualified Code(s): S09.90XA - Unspecified injury of head, initial encounter Condition: Stable Instructions: ED Head Injury Closed, ED Neck Back Pain General Follow-Up: Sotero Lucia MD [Primary Care Provider] - Comments: The CT scan of your head, cervical spine and chest did not show any acute injuries.You may be sore for the next several days and I would continue using anti-inflammatory medications or lidocaine patches. I would also recommend close follow-up with your primary care doctor if you continue to have any areas of aches or pains. Return to the ER with worsening symptoms such as difficulty breathing. Discharge Date/Time: 05/08/22 11:56
[2022-05-08] MEDS ORDERED: iohexoL-300 100 ML VIAL IVP ONE (15:32)
== END 2022-05-08 11:56 | disposition home or self-care (01) ==
LOC: EDUNIT# → ED 08:36
DX: S29.012A Strain of muscle and tendon of back wall of thorax, initial encounter (principal); S09.90XA Unspecified injury of head, initial encounter; W11.XXXA Fall on and from ladder, initial encounter; Y93.89 Activity, other specified
CPT/HCPCS: 36415; 70450; 71260; 72125; 80053; 85025; 96374; 99283; 99284; Q9967

== ENCOUNTER 2022-05-12 12:33 | Outpatient (CLI) | payer MEDICAID ==
--- NOTE | 2022-05-12 19:35 | XRAY Report ---
PROCEDURE: Cervical Spine Comp w/Flex/Ext INDICATIONS: NECK PAIN TECHNIQUE: 7 views of the cervical spine were acquired. COMPARISON: Most recent plain film from 08/24/2021 FINDINGS: Bones: No fractures or dislocations to the T1 level. There is intact anterior fusion hardware from C 5 through C7. Grade 1 retrolisthesis C4 on 5 and trace retrolisthesis C3 on 4, similar compared to pr ior studies. Mild endplate spurs at C3-4 level. There is reduction of the C4-5 anterolisthesis in flexion. No further retrolisthesis in extension. Mo derate bilateral bony foraminal narrowing at C4-5 as seen on oblique views. There is no motion at the fused level during flexion or extension. There is otherwise normal range of motion. There is moderate bilateral bony foraminal narrowing at the C6-7 level. Soft tissues: Prevertebral soft tissues are normal in thickness. IMPRESSION: 1. Grade 1 spondylolisthesis at C4-5 as well as motion during flexion. 2. There is also bilateral foraminal narrowing at this level. 3. Intact anterior fusion hardware from C5 through C7. 4. No significant changes compared to most recent prior study. Reviewed by: Michelle Alonzo MD on 05/12/2022 6:34 PM [place] Approved by: Michelle Alonzo MD on 05/12/2022 6:34 PM [place] Station ID: [id number]
== END 2022-05-12 12:34 | disposition home or self-care (01) ==
LOC: DI 12:33
PROVIDERS: ATTEND Nurse Practitioner
DX: M43.12 Spondylolisthesis, cervical region (principal); M48.02 Spinal stenosis, cervical region; Z98.1 Arthrodesis status

== ENCOUNTER 2022-09-25 09:43 | Outpatient (CLI) | payer MEDICAID ==
[2022-09-25 11:48] LABS: BASOPHILS # (AUTO) 0.1 10^3/uL (0.0-0.1); EOSINOPHILS # (AUTO) 0.2 10^3/uL (0.0-0.7); HCT - HEMATOCRIT 40.3 % (42.0-52.0); HGB - HEMOGLOBIN 13.5 g/dL (14.0-18.0); LYMPHOCYTES # (AUTO) 0.9 10^3/uL (1.5-3.5); LYMPHOCYTES % (AUTO) 16.9 %; MEAN CORPUSCULAR HEMOGLOBIN 30.5 pg (27.0-31.0); MEAN CORPUSCULAR HGB CONC 33.5 g/dL (32.0-36.0); MONOCYTES # (AUTO) 0.3 10^3/uL (0.0-1.0); MONOCYTES % (AUTO) 5.6 %; NEUTROPHILS # (AUTO) 3.7 10^3/uL (1.5-6.6); NEUTROPHILS % (AUTO) 73.3 %; PLT - PLATELET COUNT 233 10^3/uL (130-450); RED BLOOD COUNT 4.43 10^6/uL (4.70-6.10); RED CELL DISTRIBUTION WIDTH 11.9 % (12.0-15.0)
[2022-09-25 11:56] LABS: LITHIUM 0.85 mmol/L
[2022-09-25 12:14] LABS: ESTIMATED AVERAGE GLUCOSE 85 mg/dL (70-100); HEMOGLOBIN A1c% 4.6 % (4.27-6.07)
[2022-09-25 12:16] LABS: ALBUMIN 4.1 g/dL (3.2-5.5); ALBUMIN/GLOBULIN RATIO 1.5 (1.0-2.2); ALKALINE PHOSPHATASE 77 IU/L (42-121); ALT ALANINE AMINOTRANSFERASE 28 IU/L (10-60); AST ASPARTATE AMINOTRANSFERASE 26 IU/L (10-42); BILIRUBIN,TOTAL 1.7 mg/dL (0.2-1.0); BUN - BLOOD UREA NITROGEN 11 mg/dL (6-20); CALCIUM 9.3 mg/dL (8.5-10.3); CARBON DIOXIDE - CO2 26 mmol/L (21-32); CHLORIDE 110 mmol/L (101-111); CHOL/HDL RATIO 4.1 (<5.0); CHOLESTEROL 190 mg/dL; CREATININE 0.8 mg/dL (0.6-1.2); GFR - MDRD 104 (>89); GLUCOSE 100 mg/dL (70-100); HDL CHOLESTEROL 46 mg/dL; LDL CHOLESTEROL,CALCULATED 128 mg/dL; LDL/HDL RATIO 2.8 (<3.6); POTASSIUM 3.9 mmol/L (3.5-5.0); SODIUM 142 mmol/L (135-145); THYROID STIMULATING HORMONE 1.36 uIU/mL (0.34-5.60); TOTAL PROTEIN 6.9 g/dL (6.7-8.2); TRIGLYCERIDES 79 mg/dL; VLDL CHOLESTEROL 16 mg/dL
[2022-09-25 12:27] LABS: FOLATE 23.61 ng/mL (5.90 - >24.8)
[2022-09-25 18:27] LABS: CREATININE,URINE 82.9 mg/dL; MICROALBUM/CREATININE RATIO,UR 9.7 ug/mg (<30.0); MICROALBUMIN,URINE 0.8 mg/dL (0-300.0)
== END 2022-09-25 09:44 | disposition home or self-care (01) ==
LOC: LAB.N 09:43
PROVIDERS: ATTEND Nurse Practitioner
DX: E53.8 Deficiency of other specified B group vitamins (principal); F31.9 Bipolar disorder, unspecified; R63.4 Abnormal weight loss
CPT/HCPCS: 36415; 80053; 80061; 80178; 82043; 82570; 82607; 82746; 83036; 83721; 84443; 85025

== ENCOUNTER 2022-10-06 14:18 | Emergency (ER) | payer MEDICAID ==
--- OUTSIDE RECORDS SUMMARY | 2022-10-06 15:01 | EXTERNAL MEDICAL SUMMARY RPT | Continuity of Care Document ---
Author Name Unknown Address [address] [place] [id number] Phone Organization [facility] Address [address] [place] [phone] Phone Results/Labs test date author facility value unit interpretation Result panel 1 (unknown) (no date) (unknown) (unknown) (no value) (units unknown) (unknown) (unknown) (no date) (unknown) (unknown) #20 tabs (units unknown) (unknown) (unknown) (no date) (unknown) (unknown) (UTI, incontin ence, constipation) (units unknown) (unknown) (unknown) (no date) (unknown) (unknown) 07/04/2207/0407/04/22 Range/Units (units unknown) (unknown) (unknown) (no date) (unknown) (unknown) 07/04/22 13:10 (unit s unknown) (unknown) (unknown) (no date) (unknown) (unknown) 07/04/22 Range/Units (units unknown) (unknown) (unknown) (no date) (unknown) (unknown) 07/04/22 (units unknown) (unknown) (unknown) (no date) (unknown) (unknown) 1 tab PO Q6H P RN (Reason: pain) Qty: 10 0RF (units unknown) (unknown) (unknown) (no date) (unknown) (unknown) 1,500 mg PO Q8 H PRN (Reason: muscle spasm) Qty: 20 0RF (units unknown) (unknown) (unknown) (no date) (unknown) (unknown) 1. No acute intracranial abnormalities. (units unknown) (unknown) (unknown) (no date) (unknown) (unknown) 1. No acute os seous abnormalities. (units unknown) (unknown) (unknown) (no date) (unknown) (unknown) [address] [place] [id number] (un its unknown) (unknown) (unknown) (no date) (unknown) (unknown) 12:36 07/04/22 (unit s unknown) (unknown) (unknown) (no date) (unknown) (unknown) 12:44 07/04/22 (unit s unknown) (unknown) (unknown) (no date) (unknown) (unknown) 13:10 13:10 18:04 (u nits unknown) (unknown) (unknown) (no date) (unknown) (unknown) 14:04 (units unknown) (unknown) (unknown) (no date) (unknown) (unknown) 14:05 07/04/22 (unit s unknown) (unknown) (unknown) (no date) (unknown) (unknown) 14:30 07/04/22 (unit s unknown) (unknown) (unknown) (no date) (unknown) (unknown) 14:30 (units unknown) (unknown) (unknown) (no date) (unknown) (unknown) 15:00 07/04/22 (unit s unknown) (unknown) (unknown) (no date) (unknown) (unknown) 15:00 (units unknown) (unknown) (unknown) (no date) (unknown) (unknown) 15:30 07/04/22 (unit s unknown) (unknown) (unknown) (no date) (unknown) (unknown) 16:00 07/04/22 (unit s unknown) (unknown) (unknown) (no date) (unknown) (unknown) 16:00 (units unknown) (unknown) (unknown) (no date) (unknown) (unknown) 16:30 07/04/22 (unit s unknown) (unknown) (unknown) (no date) (unknown) (unknown) 17:00 (units unknown) (unknown) (unknown) (no date) (unknown) (unknown) 17:15 07/04/22 (unit s unknown) (unknown) (unknown) (no date) (unknown) (unknown) 17:30 07/04/22 (unit s unknown) (unknown) (unknown) (no date) (unknown) (unknown) 17:30 (units unknown) (unknown) (unknown) (no date) (unknown) (unknown) 18:00 07/04/22 (unit s unknown) (unknown) (unknown) (no date) (unknown) (unknown) 18:00 (units unknown) (unknown) (unknown) (no date) (unknown) (unknown) 18:07 07/04/22 (unit s unknown) (unknown) (unknown) (no date) (unknown) (unknown) 18:11 (units unknown) (unknown) (unknown) (no date) (unknown) (unknown) 18:30 07/04/22 (unit s unknown) (unknown) (unknown) (no date) (unknown) (unknown) 18:30 (units unknown) (unknown) (unknown) (no date) (unknown) (unknown) 18:54 07/04/22 (unit s unknown) (unknown) (unknown) (no date) (unknown) (unknown) 18:54 (units unknown) (unknown) (unknown) (no date) (unknown) (unknown) 2. Degenerativ e and postsurgical changes in cervical spine.? (units unknown) (unknown) (unknown) (no date) (unknown) (unknown) 2290 (units unknown) (unknown) (unknown) (no date) (unknown) (unknown) 46-year-old ma le presented to the emergency department with multiple complaints. (units unknown) (unknown) (unknown) (no date) (unknown) (unknown) 46-year-old ma le with history of TBI, ADHD presents with concern for possible (units unknown) (unknown) (unknown) (no date) (unknown) (unknown) ? (units unknown) (unknown) (unknown) (no date) (unknown) (unknown) ALT (<50) IU/L (unit s unknown) (unknown) (unknown) (no date) (unknown) (unknown) ALT 21 (<50) IU/L (u nits unknown) (unknown) (unknown) (no date) (unknown) (unknown) AST (17-59) IU/L (un its unknown) (unknown) (unknown) (no date) (unknown) (unknown) AST 23 (17-59) IU/L (units unknown) (unknown) (unknown) (no date) (unknown) (unknown) Accession Numb er: [id number] ?? (units unknown) (unknown) (unknown) (no date) (unknown) (unknown) Accession Numb er: [id number] ?? (units unknown) (unknown) (unknown) (no date) (unknown) (unknown) Acct:[id number] (uni ts unknown) (unknown) (unknown) (no date) (unknown) (unknown) Activity Restrictions/Addition al Instructions: (units unknown) (unknown) (unknown) (no date) (unknown) (unknown) Admin: 3 16:13 Dose: 1,000 mls/hr (units unknown) (unknown) (unknown) (no date) (unknown) (unknown) Age/Sex: 46 / M (uni ts unknown) (unknown) (unknown) (no date) (unknown) (unknown) Agree with radiology's interpretation of the imaging (units unknown) (unknown) (unknown) (no date) (unknown) (unknown) Albumin (3.5-5 .0) g/dL (units unknown) (unknown) (unknown) (no date) (unknown) (unknown) Albumin 4.5 (3 .5-5.0) g/dL (units unknown) (unknown) (unknown) (no date) (unknown) (unknown) Albumin/Globul in Ratio (1.0-2.8) (units unknown) (unknown) (unknown) (no date) (unknown) (unknown) Albumin/Globul in Ratio 1.6 (1.0-2.8) (units unknown) (unknown) (unknown) (no date) (unknown) (unknown) Alkaline Phosp hatase (38-126) U/L (units unknown) (unknown) (unknown) (no date) (unknown) (unknown) Alkaline Phosp hatase 74 (38-126) U/L (units unknown) (unknown) (unknown) (no date) (unknown) (unknown) Allergies (units unknown) (unknown) (unknown) (no date) (unknown) (unknown) Allergy/AdvRea c Type Severity Reaction Status Date / Time (units unknown) (unknown) (unknown) (no date) (unknown) (unknown) Amorphous Sediment 1 (units unknown) (unknown) (unknown) (no date) (unknown) (unknown) Amorphous Sediment ( units unknown) (unknown) (unknown) (no date) (unknown) ([place]) [place] [id number] (units unknown) (unknown) (unknown) (no date) (unknown) (unknown) Approved by: Allyssa Sherwood M.D. on 07/04/2022 at 12:28?? (units unknown) (unknown) (unknown) (no date) (unknown) (unknown) Approved by: Allyssa Sherwood M.D. on 07/04/2022 at 12:33?? (units unknown) (unknown) (unknown) (no date) (unknown) (unknown) Attestation: I personally reviewed and interpreted this imaging study as (units unknown) (unknown) (unknown) (no date) (unknown) (unknown) Attestation: I reviewed the patient's lab results. (units unknown) (unknown) (unknown) (no date) (unknown) (unknown) Attestation: I reviewed the patient's medical records. (units unknown) (unknown) (unknown) (no date) (unknown) (unknown) BACK: Nontende r without deformity or crepitance. No flank tenderness. (units unknown) (unknown) (unknown) (no date) (unknown) (unknown) BUN (9-20) mg/dL (un its unknown) (unknown) (unknown) (no date) (unknown) (unknown) BUN 16 (9-20) mg/dL (units unknown) (unknown) (unknown) (no date) (unknown) (unknown) BUN/Creatinine Ratio (6-22) (units unknown) (unknown) (unknown) (no date) (unknown) (unknown) BUN/Creatinine Ratio 17.8 (6-22) (units unknown) (unknown) (unknown) (no date) (unknown) (unknown) Baso # (Auto) (0-100) /uL (units unknown) (unknown) (unknown) (no date) (unknown) (unknown) Baso # (Auto) 100 (0-100) /uL (units unknown) (unknown) (unknown) (no date) (unknown) (unknown) Baso % (Auto) (0-2) % (units unknown) (unknown) (unknown) (no date) (unknown) (unknown) Baso % (Auto) 1.0 (0-2) % (units unknown) (unknown) (unknown) (no date) (unknown) (unknown) Bladder incont inence, Constipation, Headache (units unknown) (unknown) (unknown) (no date) (unknown) (unknown) Blood Pressure 120/83 136/89 (units unknown) (unknown) (unknown) (no date) (unknown) (unknown) Blood Pressure 136/8 6 (units unknown) (unknown) (unknown) (no date) (unknown) (unknown) Blood Pressure 141/84 H 170/95 H (units unknown) (unknown) (unknown) (no date) (unknown) (unknown) Blood Pressure 147/75 H 133/84 (units unknown) (unknown) (unknown) (no date) (unknown) (unknown) Blood Pressure 152/112 H (units unknown) (unknown) (unknown) (no date) (unknown) (unknown) Blood Pressure 152/93 H 142/102 H (units unknown) (unknown) (unknown) (no date) (unknown) (unknown) Blood Pressure 152/99 H (units unknown) (unknown) (unknown) (no date) (unknown) (unknown) Blood Pressure 172/112 H (units unknown) (unknown) (unknown) (no date) (unknown) (unknown) Blood Pressure (unit s unknown) (unknown) (unknown) (no date) (unknown) (unknown) Bones:? No fra ctures or dislocations.? There is loss of normal cervical (units unknown) (unknown) (unknown) (no date) (unknown) (unknown) Brain:? No mid line shift.? No intracranial masses or hemorrhage.? Schaeffer-white (units unknown) (unknown) (unknown) (no date) (unknown) (unknown) CARDIOVASCULAR : Regular rate and rhythm without murmurs, gallops, or rubs. (units unknown) (unknown) (unknown) (no date) (unknown) (unknown) COMPARISON:? [facility], CR, XR CERVICAL SPINE 2V OR 3V, 05/16/2022, 20:57.? (units unknown) (unknown) (unknown) (no date) (unknown) (unknown) COMPARISON:? None. ( units unknown) (unknown) (unknown) (no date) (unknown) (unknown) CSF spaces:? B keesha cisterns are patent.? No extra-axial fluid collections.? (units unknown) (unknown) (unknown) (no date) (unknown) (unknown) CT Scan Report (unit s unknown) (unknown) (unknown) (no date) (unknown) (unknown) CT neck: (units unknown) (unknown) (unknown) (no date) (unknown) (unknown) CT scan - head: (uni ts unknown) (unknown) (unknown) (no date) (unknown) (unknown) Calcium (8.4-1 0.2) mg/dL (units unknown) (unknown) (unknown) (no date) (unknown) (unknown) Calcium 9.5 (8.4-10.2) mg/dL (units unknown) (unknown) (unknown) (no date) (unknown) (unknown) Carbon Dioxide (22-32) mmol/L (units unknown) (unknown) (unknown) (no date) (unknown) (unknown) Carbon Dioxide 26 (22-32) mmol/L (units unknown) (unknown) (unknown) (no date) (unknown) (unknown) Chief complain t: Head Injury (units unknown) (unknown) (unknown) (no date) (unknown) (unknown) Chloride (98-1 07) mmol/L (units unknown) (unknown) (unknown) (no date) (unknown) (unknown) Chloride 104 ( 98-107) mmol/L (units unknown) (unknown) (unknown) (no date) (unknown) (unknown) Clinical Impression: (units unknown) (unknown) (unknown) (no date) (unknown) (unknown) Course (units unknown) (unknown) (unknown) (no date) (unknown) (unknown) Creatinine (0.66-1.25) mg/dL (units unknown) (unknown) (unknown) (no date) (unknown) (unknown) Creatinine 0.9 0 (0.66-1.25) mg/dL (units unknown) (unknown) (unknown) (no date) (unknown) (unknown) : 7 Acct:[id number] (units unknown) (unknown) (unknown) (no date) (unknown) (unknown) : 1975 (uni ts unknown) (unknown) (unknown) (no date) (unknown) (unknown) Date of Servic e: 07/04/22 (units unknown) (unknown) (unknown) (no date) (unknown) (unknown) Department for any worsening or persistent symptoms. Please take medications as (units unknown) (unknown) (unknown) (no date) (unknown) (unknown) Departure (units unknown) (unknown) (unknown) (no date) (unknown) (unknown) Dictated by: Allyssa Sherwood M.D. on 07/04/2022 at 12:27 ? ? (units unknown) (unknown) (unknown) (no date) (unknown) (unknown) Dictated by: Allyssa Sherwood M.D. on 07/04/2022 at 12:30 ? ? (units unknown) (unknown) (unknown) (no date) (unknown) (unknown) Differential Diagnosis (units unknown) (unknown) (unknown) (no date) (unknown) (unknown) Differential diagnosis: Likely closed head injury, subdural hematoma and other (units unknown) (unknown) (unknown) (no date) (unknown) (unknown) Discharge Plan (unit s unknown) (unknown) (unknown) (no date) (unknown) (unknown) Discontinued Medications (units unknown) (unknown) (unknown) (no date) (unknown) (unknown) Documented By: AB (u nits unknown) (unknown) (unknown) (no date) (unknown) (unknown) ENT: Nose with out bleeding, purulent drainage. Throat without erythema, (units unknown) (unknown) (unknown) (no date) (unknown) (unknown) ER Physician: Suzanne Funk P.A-C (units unknown) (unknown) (unknown) (no date) (unknown) (unknown) EXTREMITIES: N o edema or joint tenderness. (units unknown) (unknown) (unknown) (no date) (unknown) (unknown) EYES: Pupils e qual round and reactive. Extraocular motions intact. No scleral (units unknown) (unknown) (unknown) (no date) (unknown) (unknown) Emergency Report (un its unknown) (unknown) (unknown) (no date) (unknown) (unknown) Eos # (Auto) ( 0-450) /uL (units unknown) (unknown) (unknown) (no date) (unknown) (unknown) Eos # (Auto) 1 00 (0-450) /uL (units unknown) (unknown) (unknown) (no date) (unknown) (unknown) Eos % (Auto) (2-4) % (units unknown) (unknown) (unknown) (no date) (unknown) (unknown) Eos % (Auto) 2 .2 (2-4) % (units unknown) (unknown) (unknown) (no date) (unknown) (unknown) Estimated GFR > 60 (>60) mL/min (units unknown) (unknown) (unknown) (no date) (unknown) (unknown) Estimated GFR (>60) mL/min (units unknown) (unknown) (unknown) (no date) (unknown) (unknown) Ethyl Alcohol < 10 ( - 10) mg/dL (units unknown) (unknown) (unknown) (no date) (unknown) (unknown) Ethyl Alcohol ( - 10) mg/dL (units unknown) (unknown) (unknown) (no date) (unknown) (unknown) Exam Narrative: (uni ts unknown) (unknown) (unknown) (no date) (unknown) (unknown) Exam (units unknown) (unknown) (unknown) (no date) (unknown) (unknown) FINDINGS:? (units unknown) (unknown) (unknown) (no date) (unknown) (unknown) GASTROINTESTIN AL: Abdomen soft, non-tender, nondistended, patient has mild (units unknown) (unknown) (unknown) (no date) (unknown) (unknown) GENERAL: 46 ye ar old patient appears stated age. Well-developed patient, in mild (units unknown) (unknown) (unknown) (no date) (unknown) (unknown) General (units unknown) (unknown) (unknown) (no date) (unknown) (unknown) Globulin (1.7- 4.1) g/dL (units unknown) (unknown) (unknown) (no date) (unknown) (unknown) Globulin 2.9 (1.7-4.1) g/dL (units unknown) (unknown) (unknown) (no date) (unknown) (unknown) Glucose (70-10 0) mg/dL (units unknown) (unknown) (unknown) (no date) (unknown) (unknown) Glucose 88 (70 -100) mg/dL (units unknown) (unknown) (unknown) (no date) (unknown) (unknown) HEAD: Atraumat ic. Normocephalic. (units unknown) (unknown) (unknown) (no date) (unknown) (unknown) HPI - Head Injury (u nits unknown) (unknown) (unknown) (no date) (unknown) (unknown) HPI Narrative: (unit s unknown) (unknown) (unknown) (no date) (unknown) (unknown) Hct (41-53) % (units unknown) (unknown) (unknown) (no date) (unknown) (unknown) Hct 43.7 (41-53) % ( units unknown) (unknown) (unknown) (no date) (unknown) (unknown) He also takes methocarbamol for chronic muscle spasms and back pain and has had (units unknown) (unknown) (unknown) (no date) (unknown) (unknown) Hgb (13.5-17.5) g/dL (units unknown) (unknown) (unknown) (no date) (unknown) (unknown) Hgb 14.9 (13.5 -17.5) g/dL (units unknown) (unknown) (unknown) (no date) (unknown) (unknown) History of Pre sent Illness (units unknown) (unknown) (unknown) (no date) (unknown) (unknown) History of TBI with persistent neuro symptoms and unsteady gait with frequent (units unknown) (unknown) (unknown) (no date) (unknown) (unknown) [facility], , MR CERVICAL SPINE WO [place], 05/16/2022, 18:28. (units unknown) (unknown) (unknown) (no date) (unknown) (unknown) I agree with radiologist's interpretation of the image (units unknown) (unknown) (unknown) (no date) (unknown) (unknown) IMPRESSION:? (units unknown) (unknown) (unknown) (no date) (unknown) (unknown) INDICATIONS:? prior head injury, ligamentous injury, diaz, urine problems (units unknown) (unknown) (unknown) (no date) (unknown) (unknown) Image quality: ? Excellent.? (units unknown) (unknown) (unknown) (no date) (unknown) (unknown) Imaging Data (units unknown) (unknown) (unknown) (no date) (unknown) (unknown) Initial Vital Signs (units unknown) (unknown) (unknown) (no date) (unknown) (unknown) Initial Vital Signs: (units unknown) (unknown) (unknown) (no date) (unknown) (unknown) [facility] l [address] [place] [id number] (units unknown) (unknown) (unknown) (no date) (unknown) (unknown) (uni ts unknown) (unknown) (unknown) (no date) (unknown) (unknown) Ida (units unknown) (unknown) (unknown) (no date) (unknown) (unknown) Ketorolac Tromethamine (Ketorolac 30 Mg/Ml Vial) 15 mg IV NOW ONE (units unknown) (unknown) (unknown) (no date) (unknown) (unknown) Jd Skinner MD [Physician] (units unknown) (unknown) (unknown) (no date) (unknown) (unknown) Lab Data (units unknown) (unknown) (unknown) (no date) (unknown) (unknown) Lab Results (units unknown) (unknown) (unknown) (no date) (unknown) (unknown) Labs: (units unknown) (unknown) (unknown) (no date) (unknown) (unknown) Last Admin: 16:13 Dose: 15 mg (units unknown) (unknown) (unknown) (no date) (unknown) (unknown) Last Infusion: 07/04/22 17:12 Dose: 0 mls/hr (units unknown) (unknown) (unknown) (no date) (unknown) (unknown) Lipase (23-300) U/L (units unknown) (unknown) (unknown) (no date) (unknown) (unknown) Lipase 60 (23- 300) U/L (units unknown) (unknown) (unknown) (no date) (unknown) (unknown) Loc: ED (units unknown) (unknown) (unknown) (no date) (unknown) (unknown) Lymph # (Auto) (1046-3104) /uL (units unknown) (unknown) (unknown) (no date) (unknown) (unknown) Lymph # (Auto) 1100 (8013-0061) /uL (units unknown) (unknown) (unknown) (no date) (unknown) (unknown) Lymph % (Auto) (25-40) % (units unknown) (unknown) (unknown) (no date) (unknown) (unknown) Lymph % (Auto) 20.0 L (25-40) % (units unknown) (unknown) (unknown) (no date) (unknown) (unknown) MCH (26-34) PG (unit s unknown) (unknown) (unknown) (no date) (unknown) (unknown) MCH 30.2 (26-34) PG (units unknown) (unknown) (unknown) (no date) (unknown) (unknown) MCHC (30-36) % (unit s unknown) (unknown) (unknown) (no date) (unknown) (unknown) MCHC 34.0 (30-36) % (units unknown) (unknown) (unknown) (no date) (unknown) (unknown) MCV (80-100) fL (uni ts unknown) (unknown) (unknown) (no date) (unknown) (unknown) MCV 88.8 (80-100) fL (units unknown) (unknown) (unknown) (no date) (unknown) (unknown) MDM - Head Injury (u nits unknown) (unknown) (unknown) (no date) (unknown) (unknown) MDM Narrative (units unknown) (unknown) (unknown) (no date) (unknown) (unknown) MR#: [id number] (uni ts unknown) (unknown) (unknown) (no date) (unknown) (unknown) Medical Records (uni ts unknown) (unknown) (unknown) (no date) (unknown) (unknown) Medical decisi on making narrative: (units unknown) (unknown) (unknown) (no date) (unknown) (unknown) Medication Instructions Recorded (units unknown) (unknown) (unknown) (no date) (unknown) (unknown) Mode of arriva l: Ambulatory (units unknown) (unknown) (unknown) (no date) (unknown) (unknown) [place] # (Auto) (0-900) /uL (units unknown) (unknown) (unknown) (no date) (unknown) (unknown) [place] # (Auto) 400 (0-900) /uL (units unknown) (unknown) (unknown) (no date) (unknown) (unknown) [place] % (Auto) (3-14) % (units unknown) (unknown) (unknown) (no date) (unknown) (unknown) [place] % (Auto) 7.4 (3-14) % (units unknown) (unknown) (unknown) (no date) (unknown) (unknown) My Impression: (unit s unknown) (unknown) (unknown) (no date) (unknown) (unknown) NECK: Trachea midline. Non tender (units unknown) (unknown) (unknown) (no date) (unknown) (unknown) NEURO: AOx3. C ranial nerves 2-12 is intact, patient does have nystagmus which (units unknown) (unknown) (unknown) (no date) (unknown) (unknown) Narrative (units unknown) (unknown) (unknown) (no date) (unknown) (unknown) Narrative: (units unknown) (unknown) (unknown) (no date) (unknown) (unknown) Neut # (Auto) (9211-9423) /uL (units unknown) (unknown) (unknown) (no date) (unknown) (unknown) Neut # (Auto) 3700 (0140-7514) /uL (units unknown) (unknown) (unknown) (no date) (unknown) (unknown) Neut % (Auto) (50-75) % (units unknown) (unknown) (unknown) (no date) (unknown) (unknown) Neut % (Auto) 69.4 (50-75) % (units unknown) (unknown) (unknown) (no date) (unknown) (unknown) No Action (units unknown) (unknown) (unknown) (no date) (unknown) (unknown) Noncontrast 3 mm thick sections acquired from the skull base to the T4 level.? (units unknown) (unknown) (unknown) (no date) (unknown) (unknown) Noncontrast 4. 5 mm thick angled axial sections acquired from the foramen magnum (units unknown) (unknown) (unknown) (no date) (unknown) (unknown) Ordered: (units unknown) (unknown) (unknown) (no date) (unknown) (unknown) Ordering Provi shannan: Regla Whitman D.O. (units unknown) (unknown) (unknown) (no date) (unknown) (unknown) Orders (units unknown) (unknown) (unknown) (no date) (unknown) (unknown) Oxygen Deliver y Method Room Air 07/04/22 12:36 (units unknown) (unknown) (unknown) (no date) (unknown) (unknown) Oxygen Deliver y Method Room Air (units unknown) (unknown) (unknown) (no date) (unknown) (unknown) Oxygen Deliver y Method (units unknown) (unknown) (unknown) (no date) (unknown) (unknown) PROCEDURE:? CT CERVICAL SPINE WO CON (units unknown) (unknown) (unknown) (no date) (unknown) (unknown) PROCEDURE:? CT HEAD/BRAIN WO CON (units unknown) (unknown) (unknown) (no date) (unknown) (unknown) Patient Dispos ition: Home (units unknown) (unknown) (unknown) (no date) (unknown) (unknown) Patient History (uni ts unknown) (unknown) (unknown) (no date) (unknown) (unknown) Patient denies any recent falls, vision change, severe or persistent dizziness, (units unknown) (unknown) (unknown) (no date) (unknown) (unknown) Patient: Corbin Barrera MR#: [id number] (units unknown) (unknown) (unknown) (no date) (unknown) (unknown) Patient: Mychal Mathews (units unknown) (unknown) (unknown) (no date) (unknown) (unknown) Please call [facility] office for an appointment. Please return to the Emergency (units unknown) (unknown) (unknown) (no date) (unknown) (unknown) Plt Count (150 -400) X103/uL (units unknown) (unknown) (unknown) (no date) (unknown) (unknown) Plt Count 244 (150-400) X103/uL (units unknown) (unknown) (unknown) (no date) (unknown) (unknown) Potassium (3.4 -5.1) mmol/L (units unknown) (unknown) (unknown) (no date) (unknown) (unknown) Potassium 4.1 (3.4-5.1) mmol/L (units unknown) (unknown) (unknown) (no date) (unknown) (unknown) Prescriptions: (unit s unknown) (unknown) (unknown) (no date) (unknown) (unknown) Previous Rx's (units unknown) (unknown) (unknown) (no date) (unknown) (unknown) Procedure: CT cervical spine wo con (units unknown) (unknown) (unknown) (no date) (unknown) (unknown) Procedure: CT head/brain wo con (units unknown) (unknown) (unknown) (no date) (unknown) (unknown) Pulse Oximetry 96 97 97 (units unknown) (unknown) (unknown) (no date) (unknown) (unknown) Pulse Oximetry 97 97 (units unknown) (unknown) (unknown) (no date) (unknown) (unknown) Pulse Oximetry 97 98 (units unknown) (unknown) (unknown) (no date) (unknown) (unknown) Pulse Oximetry 97 (u nits unknown) (unknown) (unknown) (no date) (unknown) (unknown) Pulse Oximetry 98 07/04/22 12:36 (units unknown) (unknown) (unknown) (no date) (unknown) (unknown) Pulse Oximetry 98 96 (units unknown) (unknown) (unknown) (no date) (unknown) (unknown) Pulse Oximetry 98 99 (units unknown) (unknown) (unknown) (no date) (unknown) (unknown) Pulse Oximetry 98 (u nits unknown) (unknown) (unknown) (no date) (unknown) (unknown) Pulse Rate 56 L (uni ts unknown) (unknown) (unknown) (no date) (unknown) (unknown) Pulse Rate 59 L (uni ts unknown) (unknown) (unknown) (no date) (unknown) (unknown) Pulse Rate 60 61 (un its unknown) (unknown) (unknown) (no date) (unknown) (unknown) Pulse Rate 61 67 (un its unknown) (unknown) (unknown) (no date) (unknown) (unknown) Pulse Rate 63 63 66 (units unknown) (unknown) (unknown) (no date) (unknown) (unknown) Pulse Rate 64 (units unknown) (unknown) (unknown) (no date) (unknown) (unknown) Pulse Rate 66 66 (un its unknown) (unknown) (unknown) (no date) (unknown) (unknown) Pulse Rate 66 (units unknown) (unknown) (unknown) (no date) (unknown) (unknown) Pulse Rate 69 07/04/22 12:36 (units unknown) (unknown) (unknown) (no date) (unknown) (unknown) Pulse Rate 69 70 (un its unknown) (unknown) (unknown) (no date) (unknown) (unknown) RBC (4.5-5.9) X106/u L (units unknown) (unknown) (unknown) (no date) (unknown) (unknown) RBC 4.92 (4.5- 5.9) X106/uL (units unknown) (unknown) (unknown) (no date) (unknown) (unknown) RDW (11.6-14.8) % (u nits unknown) (unknown) (unknown) (no date) (unknown) (unknown) RDW 12.7 (11.6 -14.8) % (units unknown) (unknown) (unknown) (no date) (unknown) (unknown) RESPIRATORY: C lear to auscultation. Breath sounds equal bilaterally. No wheezes, (units unknown) (unknown) (unknown) (no date) (unknown) (unknown) Radiologist's Impression: (units unknown) (unknown) (unknown) (no date) (unknown) (unknown) Referrals: (units unknown) (unknown) (unknown) (no date) (unknown) (unknown) Related Data (units unknown) (unknown) (unknown) (no date) (unknown) (unknown) Respiratory Ra te 12 07/04/22 12:36 (units unknown) (unknown) (unknown) (no date) (unknown) (unknown) Respiratory Rate 12 (units unknown) (unknown) (unknown) (no date) (unknown) (unknown) Respiratory Rate 16 (units unknown) (unknown) (unknown) (no date) (unknown) (unknown) Respiratory Ra te 18 30 H (units unknown) (unknown) (unknown) (no date) (unknown) (unknown) Respiratory Ra te 21 28 H (units unknown) (unknown) (unknown) (no date) (unknown) (unknown) Respiratory Ra te 22 22 (units unknown) (unknown) (unknown) (no date) (unknown) (unknown) Respiratory Rate 23 (units unknown) (unknown) (unknown) (no date) (unknown) (unknown) Respiratory Rate 26 H (units unknown) (unknown) (unknown) (no date) (unknown) (unknown) Respiratory Ra te 27 H 26 H (units unknown) (unknown) (unknown) (no date) (unknown) (unknown) Respiratory Rate (un its unknown) (unknown) (unknown) (no date) (unknown) (unknown) Review of Systems (u nits unknown) (unknown) (unknown) (no date) (unknown) (unknown) SKIN: Multiple tattoos. No rash or erythema of visible areas (units unknown) (unknown) (unknown) (no date) (unknown) (unknown) Sagittal (units unknown) (unknown) (unknown) (no date) (unknown) (unknown) Shared decisio n making:: Shared decision-making was used in planning this (units unknown) (unknown) (unknown) (no date) (unknown) (unknown) Signed By: (units unknown) (unknown) (unknown) (no date) (unknown) (unknown) Signed (units unknown) (unknown) (unknown) (no date) (unknown) (unknown) Sinuses:? Visu alized sinuses and mastoids are clear.? (units unknown) (unknown) (unknown) (no date) (unknown) (unknown) Skull and face :? Calvarium and visualized facial bones are intact, without (units unknown) (unknown) (unknown) (no date) (unknown) (unknown) Smoking Status : Current every day smoker (units unknown) (unknown) (unknown) (no date) (unknown) (unknown) Social History (units unknown) (unknown) (unknown) (no date) (unknown) (unknown) Sodium (137-14 5) mmol/L (units unknown) (unknown) (unknown) (no date) (unknown) (unknown) Sodium 138 (13 7-145) mmol/L (units unknown) (unknown) (unknown) (no date) (unknown) (unknown) Sodium Chlorid e (Normal Saline 0.9%) 1,000 mls @ 1,000 mls/hr IV BOLUS ONE (units unknown) (unknown) (unknown) (no date) (unknown) (unknown) Soft tissues:? Prevertebral soft tissues are normal in thickness.? No (units unknown) (unknown) (unknown) (no date) (unknown) (unknown) Stand Alone Fo anay: Patient Portal/API (units unknown) (unknown) (unknown) (no date) (unknown) (unknown) Stated complai nt: hit head, constipated, headache, trouble urinating (units unknown) (unknown) (unknown) (no date) (unknown) (unknown) Stop: 07/04/22 16:02 (units unknown) (unknown) (unknown) (no date) (unknown) (unknown) Stop: 07/04/22 16:57 (units unknown) (unknown) (unknown) (no date) (unknown) (unknown) Substance Use Type: marijuana (units unknown) (unknown) (unknown) (no date) (unknown) (unknown) TECHNIQUE:? (units unknown) (unknown) (unknown) (no date) (unknown) (unknown) Temperature 97 .8 F 07/04/22 12:36 (units unknown) (unknown) (unknown) (no date) (unknown) (unknown) Temperature 97.8 F ( units unknown) (unknown) (unknown) (no date) (unknown) (unknown) Temperature (units unknown) (unknown) (unknown) (no date) (unknown) (unknown) Thank you for letting us be part of your care today in the emergency department. (units unknown) (unknown) (unknown) (no date) (unknown) (unknown) Time Seen by Provider: 07/04/22 12:46 (units unknown) (unknown) (unknown) (no date) (unknown) (unknown) Total Bilirubi n (0.2-1.3) mg/dL (units unknown) (unknown) (unknown) (no date) (unknown) (unknown) Total Bilirubi n 2.5 H (0.2-1.3) mg/dL (units unknown) (unknown) (unknown) (no date) (unknown) (unknown) Total Protein (6.3-8.2) g/dL (units unknown) (unknown) (unknown) (no date) (unknown) (unknown) Total Protein 7.4 (6.3-8.2) g/dL (units unknown) (unknown) (unknown) (no date) (unknown) (unknown) Treatment and disposition (units unknown) (unknown) (unknown) (no date) (unknown) (unknown) U Benzodiazepi araseli Scrn (Negative) (units unknown) (unknown) (unknown) (no date) (unknown) (unknown) U Benzodiazepi araseli Scrn Negative (Negative) (units unknown) (unknown) (unknown) (no date) (unknown) (unknown) U Marijuana (T HC) Screen (Negative) (units unknown) (unknown) (unknown) (no date) (unknown) (unknown) U Marijuana (T HC) Screen Positive H (Negative) (units unknown) (unknown) (unknown) (no date) (unknown) (unknown) U Methamphetam hemalatha Scrn (Negative) (units unknown) (unknown) (unknown) (no date) (unknown) (unknown) U Methamphetam hemalatha Scrn Negative (Negative) (units unknown) (unknown) (unknown) (no date) (unknown) (unknown) U Opiates 300n g/mL cut (Negative) (units unknown) (unknown) (unknown) (no date) (unknown) (unknown) U Opiates 300n g/mL cut Negative (Negative) (units unknown) (unknown) (unknown) (no date) (unknown) (unknown) U Tricyclic Antidepress (Negative) (units unknown) (unknown) (unknown) (no date) (unknown) (unknown) U Tricyclic Antidepress Negative (Negative) (units unknown) (unknown) (unknown) (no date) (unknown) (unknown) UTI. He was no t retaining urine upon arrival to the emergency department. He (units unknown) (unknown) (unknown) (no date) (unknown) (unknown) Unremarkable e xcept as noted in the HPI (units unknown) (unknown) (unknown) (no date) (unknown) (unknown) Ur Amphetamine s Screen (Negative) (units unknown) (unknown) (unknown) (no date) (unknown) (unknown) Ur Amphetamine s Screen Positive H (Negative) (units unknown) (unknown) (unknown) (no date) (unknown) (unknown) Ur Barbiturate s Screen (Negative) (units unknown) (unknown) (unknown) (no date) (unknown) (unknown) Ur Barbiturate s Screen Negative (Negative) (units unknown) (unknown) (unknown) (no date) (unknown) (unknown) Ur Culture Ind icated? Cult not indicated (units unknown) (unknown) (unknown) (no date) (unknown) (unknown) Ur Culture Indicated ? (units unknown) (unknown) (unknown) (no date) (unknown) (unknown) Ur Leukocyte E sterase (NEGATIVE) (units unknown) (unknown) (unknown) (no date) (unknown) (unknown) Ur Leukocyte E sterase Negative (NEGATIVE) (units unknown) (unknown) (unknown) (no date) (unknown) (unknown) Ur MDMA Scrn (Ecstasy) (Negative) (units unknown) (unknown) (unknown) (no date) (unknown) (unknown) Ur MDMA Scrn (Ecstasy) Negative (Negative) (units unknown) (unknown) (unknown) (no date) (unknown) (unknown) Ur Oxycodone S creen (Negative) (units unknown) (unknown) (unknown) (no date) (unknown) (unknown) Ur Oxycodone S creen Negative (Negative) (units unknown) (unknown) (unknown) (no date) (unknown) (unknown) Ur Phencyclidi ne Scrn (Negative) (units unknown) (unknown) (unknown) (no date) (unknown) (unknown) Ur Phencyclidi ne Scrn Negative (Negative) (units unknown) (unknown) (unknown) (no date) (unknown) (unknown) Ur Specific Gr avity (1.000-1.035) (units unknown) (unknown) (unknown) (no date) (unknown) (unknown) Ur Specific Gr avity 1.010 (1.000-1.035) (units unknown) (unknown) (unknown) (no date) (unknown) (unknown) Urine Appearan ce Clear (units unknown) (unknown) (unknown) (no date) (unknown) (unknown) Urine Appearance (un its unknown) (unknown) (unknown) (no date) (unknown) (unknown) Urine Bacteria (None ) (units unknown) (unknown) (unknown) (no date) (unknown) (unknown) Urine Bacteria None seen (None) (units unknown) (unknown) (unknown) (no date) (unknown) (unknown) Urine Bilirubi n (NEGATIVE) (units unknown) (unknown) (unknown) (no date) (unknown) (unknown) Urine Bilirubi n Negative (NEGATIVE) (units unknown) (unknown) (unknown) (no date) (unknown) (unknown) Urine Cocaine Screen (Negative) (units unknown) (unknown) (unknown) (no date) (unknown) (unknown) Urine Cocaine Screen Negative (Negative) (units unknown) (unknown) (unknown) (no date) (unknown) (unknown) Urine Color Yellow ( units unknown) (unknown) (unknown) (no date) (unknown) (unknown) Urine Color (units unknown) (unknown) (unknown) (no date) (unknown) (unknown) Urine Glucose (UA) (Negative) g/dL (units unknown) (unknown) (unknown) (no date) (unknown) (unknown) Urine Glucose (UA) Negative (Negative) g/dL (units unknown) (unknown) (unknown) (no date) (unknown) (unknown) Urine Ketones (NEGATIVE) (units unknown) (unknown) (unknown) (no date) (unknown) (unknown) Urine Ketones Negative (NEGATIVE) (units unknown) (unknown) (unknown) (no date) (unknown) (unknown) Urine Methadon e Screen (Negative) (units unknown) (unknown) (unknown) (no date) (unknown) (unknown) Urine Methadon e Screen Negative (Negative) (units unknown) (unknown) (unknown) (no date) (unknown) (unknown) Urine Nitrate (Negative) (units unknown) (unknown) (unknown) (no date) (unknown) (unknown) Urine Nitrate Negative (Negative) (units unknown) (unknown) (unknown) (no date) (unknown) (unknown) Urine Occult B lood (Negative) (units unknown) (unknown) (unknown) (no date) (unknown) (unknown) Urine Occult B lood 1+ H (Negative) (units unknown) (unknown) (unknown) (no date) (unknown) (unknown) Urine Protein (Negative) (units unknown) (unknown) (unknown) (no date) (unknown) (unknown) Urine Protein Negative (Negative) (units unknown) (unknown) (unknown) (no date) (unknown) (unknown) Urine RBC (0-5/HPF) (units unknown) (unknown) (unknown) (no date) (unknown) (unknown) Urine RBC 0-1/ hpf (0-5/HPF) (units unknown) (unknown) (unknown) (no date) (unknown) (unknown) Urine Urobilin ogen (0.2) E.U./dL (units unknown) (unknown) (unknown) (no date) (unknown) (unknown) Urine Urobilin ogen 0.2 (0.2) E.U./dL (units unknown) (unknown) (unknown) (no date) (unknown) (unknown) Urine WBC (0-5/HPF) (units unknown) (unknown) (unknown) (no date) (unknown) (unknown) Urine WBC None seen (0-5/HPF) (units unknown) (unknown) (unknown) (no date) (unknown) (unknown) Urine pH (4.5-8.0) ( units unknown) (unknown) (unknown) (no date) (unknown) (unknown) Urine pH 7.5 (4.5-8.0) (units unknown) (unknown) (unknown) (no date) (unknown) (unknown) Ventricles (units unknown) (unknown) (unknown) (no date) (unknown) (unknown) Visualized (units unknown) (unknown) (unknown) (no date) (unknown) (unknown) Vital Signs - 8 hr ( units unknown) (unknown) (unknown) (no date) (unknown) (unknown) Vital Signs (units unknown) (unknown) (unknown) (no date) (unknown) (unknown) Vital signs: (units unknown) (unknown) (unknown) (no date) (unknown) (unknown) WBC (4.5-11.0) X103/uL (units unknown) (unknown) (unknown) (no date) (unknown) (unknown) WBC 5.3 (4.5-1 1.0) X103/uL (units unknown) (unknown) (unknown) (no date) (unknown) (unknown) We did give yo u some medication for your headache, I recommend you take your (units unknown) (unknown) (unknown) (no date) (unknown) (unknown) We got labs to day as well as imaging of your head and also an x-ray of your (units unknown) (unknown) (unknown) (no date) (unknown) (unknown) [Embedded Imag e Not Available] (units unknown) (unknown) (unknown) (no date) (unknown) (unknown) a previous spi ne surgery. Patient is concerned because he says for the last (units unknown) (unknown) (unknown) (no date) (unknown) (unknown) abdomen given your concern for headache as well as possible constipation and (units unknown) (unknown) (unknown) (no date) (unknown) (unknown) abdominal disc omfort with palpation over the low belly. Negative McBurney's (units unknown) (unknown) (unknown) (no date) (unknown) (unknown) advising he ma y have to be catheterized to obtain urine. Patient endorses that (units unknown) (unknown) (unknown) (no date) (unknown) (unknown) and coronal re formats were then constructed.? For radiation dose reduction, the (units unknown) (unknown) (unknown) (no date) (unknown) (unknown) and (units unknown) (unknown) (unknown) (no date) (unknown) (unknown) anterior fusio n at C5-C7.? Degenerative disc disease, moderate at C3-C4, and (units unknown) (unknown) (unknown) (no date) (unknown) (unknown) anterolisthesi s of C2 on C3, unchanged.? Postsurgical changes with discectomy (units unknown) (unknown) (unknown) (no date) (unknown) (unknown) are normal in size and shape.? (units unknown) (unknown) (unknown) (no date) (unknown) (unknown) as concern for possible constipation. Patient's workup today was generally (units unknown) (unknown) (unknown) (no date) (unknown) (unknown) walker is dyed pink at the bottom. 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 (units unknown) (unknown) (unknown) (no date) (unknown) (unknown) command due to psychologic trauma associated with this when he was a child, (units unknown) (unknown) (unknown) (no date) (unknown) (unknown) complaint of r ecent problem with urinary incontinence 1 time yesterday, as well (units unknown) (unknown) (unknown) (no date) (unknown) (unknown) constipation a s well as a headache and an episode of urinary incontinence (units unknown) (unknown) (unknown) (no date) (unknown) (unknown) describe it as painful. He states otherwise he has been in his usual state of (units unknown) (unknown) (unknown) (no date) (unknown) (unknown) directed. (units unknown) (unknown) (unknown) (no date) (unknown) (unknown) distress, bryanna ent has long hair down to the middle of his back and his long (units unknown) (unknown) (unknown) (no date) (unknown) (unknown) following (units unknown) (unknown) (unknown) (no date) (unknown) (unknown) follows: (units unknown) (unknown) (unknown) (no date) (unknown) (unknown) have a urinary tract infection there was slight blood present in your urine (units unknown) (unknown) (unknown) (no date) (unknown) (unknown) he has extreme difficulty peeing on command. 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 Tod ay presented with posterior low right-sided headache as well as (units unknown) (unknown) (unknown) (no date) (unknown) (unknown) headaches. You r CT scan looked okay. Your abdominal x-ray did not show any (units unknown) (unknown) (unknown) (no date) (unknown) (unknown) health he has a son here with him who acts as his caregiver given that he has (units unknown) (unknown) (unknown) (no date) (unknown) (unknown) hematomas.? No apical pneumothoraces.? (units unknown) (unknown) (unknown) (no date) (unknown) (unknown) his low belly has been feeling a little ?raw? for the past week but he does not (units unknown) (unknown) (unknown) (no date) (unknown) (unknown) history of met hadone use in the past and problems with slow transit. Reports (units unknown) (unknown) (unknown) (no date) (unknown) (unknown) however this i s likely because you had to be catheterized to obtain the urine. (units unknown) (unknown) (unknown) (no date) (unknown) (unknown) hydrocodone 5 mg-acetaminophen 325 1 tab PO Q6H PRN pain #10 tabs 05/16/22 (units unknown) (unknown) (unknown) (no date) (unknown) (unknown) hydrocodone-ac etamino phen 5-325 mg tablet (units unknown) (unknown) (unknown) (no date) (unknown) (unknown) icterus. No in jection or drainage. (units unknown) (unknown) (unknown) (no date) (unknown) (unknown) illness at thi s time, but follow up with your doctor in 1-2 days is recommended (units unknown) (unknown) (unknown) (no date) (unknown) (unknown) in the morning and at night? he states he has a lot of difficulty urinating on (units unknown) (unknown) (unknown) (no date) (unknown) (unknown) interface is normal. ? (units unknown) (unknown) (unknown) (no date) (unknown) (unknown) is baseline for him. (units unknown) (unknown) (unknown) (no date) (unknown) (unknown) lesions.? (units unknown) (unknown) (unknown) (no date) (unknown) (unknown) little bit and yesterday had an episode where he realized he was peeing but he (units unknown) (unknown) (unknown) (no date) (unknown) (unknown) lordosis.? Trace (un its unknown) (unknown) (unknown) (no date) (unknown) (unknown) low down in th e back of his skull. States he uses marijuana to help with pain. (units unknown) (unknown) (unknown) (no date) (unknown) (unknown) matter (units unknown) (unknown) (unknown) (no date) (unknown) (unknown) methocarbamol 750 mg tablet 1,500 mg PO Q8H PRN muscle spasm 05/16/22 (units unknown) (unknown) (unknown) (no date) (unknown) (unknown) methocarbamol 750 mg tablet (units unknown) (unknown) (unknown) (no date) (unknown) (unknown) mg tablet (units unknown) (unknown) (unknown) (no date) (unknown) (unknown) mild at (units unknown) (unknown) (unknown) (no date) (unknown) (unknown) month he is on ly had a bowel movement about once a week and he wonders if maybe (units unknown) (unknown) (unknown) (no date) (unknown) (unknown) nonetheless to continue to rule out serious underlying causes of your symptoms. (units unknown) (unknown) (unknown) (no date) (unknown) (unknown) noticed his ur ine has been more dark than usual. States typically ?I only Pee (units unknown) (unknown) (unknown) (no date) (unknown) (unknown) or any other symptoms. (units unknown) (unknown) (unknown) (no date) (unknown) (unknown) other levels.? Mild facet arthropathy at C2-C3, C3-C4 and C4-C5 bilaterally.? (units unknown) (unknown) (unknown) (no date) (unknown) (unknown) outpatient follow-up . (units unknown) (unknown) (unknown) (no date) (unknown) (unknown) paravertebral (units unknown) (unknown) (unknown) (no date) (unknown) (unknown) patient (units unknown) (unknown) (unknown) (no date) (unknown) (unknown) patient's work up and evaluation today in the emergency department and plan for (units unknown) (unknown) (unknown) (no date) (unknown) (unknown) pharmacist sto p taking this because they told him this would slow him down (units unknown) (unknown) (unknown) (no date) (unknown) (unknown) placed to obta in urine per patient this is likely due to shy bladder, he states (units unknown) (unknown) (unknown) (no date) (unknown) (unknown) plenty of frui ts and vegetables, you can consider taking MiraLax to help loosen (units unknown) (unknown) (unknown) (no date) (unknown) (unknown) rales, or rhonchi. ( units unknown) (unknown) (unknown) (no date) (unknown) (unknown) rather than sp eed him up. Patient also states that he has been leaking urine a (units unknown) (unknown) (unknown) (no date) (unknown) (unknown) regular medica tions and you can take Tylenol and ibuprofen if you have (units unknown) (unknown) (unknown) (no date) (unknown) (unknown) severe headach e today he also has dizziness on and off which is normal for him (units unknown) (unknown) (unknown) (no date) (unknown) (unknown) significant constipation. I recommend that you drink plenty of fluids and eat (units unknown) (unknown) (unknown) (no date) (unknown) (unknown) since his orig inal injury. He describes his headache pain as on the right and (units unknown) (unknown) (unknown) (no date) (unknown) (unknown) size.? (units unknown) (unknown) (unknown) (no date) (unknown) (unknown) slower transit system. There is no evidence of an emergent or life threatening (units unknown) (unknown) (unknown) (no date) (unknown) (unknown) some gas. He d enies any abdominal pain but describes some abdominal discomfort (units unknown) (unknown) (unknown) (no date) (unknown) (unknown) some incontine nce yesterday. We had to get a cath urine from you as you were (units unknown) (unknown) (unknown) (no date) (unknown) (unknown) suggest abnorm al pattern or significant constipation. Patient does endorse (units unknown) (unknown) (unknown) (no date) (unknown) (unknown) superior ribs are intact.? (units unknown) (unknown) (unknown) (no date) (unknown) (unknown) suspicious (units unknown) (unknown) (unknown) (no date) (unknown) (unknown) symptoms I do recommend you follow-up with Urology, it does not look like you (units unknown) (unknown) (unknown) (no date) (unknown) (unknown) taking any opi oid medications. He was taking Metamucil but after talking to a (units unknown) (unknown) (unknown) (no date) (unknown) (unknown) tenderness, ne gative Rovsing sign. No CVA tenderness. (units unknown) (unknown) (unknown) (no date) (unknown) (unknown) to the (units unknown) (unknown) (unknown) (no date) (unknown) (unknown) tobacco type: vaping (units unknown) (unknown) (unknown) (no date) (unknown) (unknown) tonsillar hype rtrophy or exudate. Airway patent. (units unknown) (unknown) (unknown) (no date) (unknown) (unknown) trazodone AdvR eac Verified 07/05/22 07:15 (units unknown) (unknown) (unknown) (no date) (unknown) (unknown) typical bowel movements are about once a week. Upon arrival patient also (units unknown) (unknown) (unknown) (no date) (unknown) (unknown) unable to pee it does not look like your retaining urine but given your recent (units unknown) (unknown) (unknown) (no date) (unknown) (unknown) unremarkable, his exam was also fairly unremarkable. He did have a catheter (units unknown) (unknown) (unknown) (no date) (unknown) (unknown) unremarkable, x-ray KUB was obtained for further evaluation which does not (units unknown) (unknown) (unknown) (no date) (unknown) (unknown) vertex, with c oronal and sagittal reformats.? For radiation dose reduction, the (units unknown) (unknown) (unknown) (no date) (unknown) (unknown) was given flui ds 1 L NS IV prior to cathing. His abdominal exam was (units unknown) (unknown) (unknown) (no date) (unknown) (unknown) was not very conscious of doing it. Patient states that in the past week he is (units unknown) (unknown) (unknown) (no date) (unknown) (unknown) was used:? aut omated exposure control, adjustment of mA and/or kV according to (units unknown) (unknown) (unknown) (no date) (unknown) (unknown) yesterday. Zulma palacios states that he has chronic headaches since his TBI but has a (units unknown) (unknown) (unknown) (no date) (unknown) (unknown) your stools an d move things through but it is possible that you just have a (units unknown) (unknown) Result panel 2 (unknown) (no date) (unknown) (unknown) (no value) (units unknown) (unknown) (unknown) (no date) (unknown) (unknown) #20 tabs (units unknown) (unknown) (unknown) (no date) (unknown) (unknown) (UTI, incontin ence, constipation) (units unknown) (unknown) (unknown) (no date) (unknown) (unknown) 07/04/2207/0407/04/22 Range/Units (units unknown) (unknown) (unknown) (no date) (unknown) (unknown) 07/04/22 13:10 (unit s unknown) (unknown) (unknown) (no date) (unknown) (unknown) 07/04/22 Range/Units (units unknown) (unknown) (unknown) (no date) (unknown) (unknown) 07/04/22 (units unknown) (unknown) (unknown) (no date) (unknown) (unknown) 1 tab PO Q6H P RN (Reason: pain) Qty: 10 0RF (units unknown) (unknown) (unknown) (no date) (unknown) (unknown) 1,500 mg PO Q8 H PRN (Reason: muscle spasm) Qty: 20 0RF (units unknown) (unknown) (unknown) (no date) (unknown) (unknown) 1. No acute intracranial abnormalities. (units unknown) (unknown) (unknown) (no date) (unknown) (unknown) 1. No acute os seous abnormalities. (units unknown) (unknown) (unknown) (no date) (unknown) (unknown) [address] (un its unknown) (unknown) (unknown) (no date) (unknown) (unknown) 12:36 07/04/22 (unit s unknown) (unknown) (unknown) (no date) (unknown) (unknown) 12:44 07/04/22 (unit s unknown) (unknown) (unknown) (no date) (unknown) (unknown) 13:10 13:10 18:04 (u nits unknown) (unknown) (unknown) (no date) (unknown) (unknown) 14:04 (units unknown) (unknown) (unknown) (no date) (unknown) (unknown) 14:05 07/04/22 (unit s unknown) (unknown) (unknown) (no date) (unknown) (unknown) 14:30 07/04/22 (unit s unknown) (unknown) (unknown) (no date) (unknown) (unknown) 14:30 (units unknown) (unknown) (unknown) (no date) (unknown) (unknown) 15:00 07/04/22 (unit s unknown) (unknown) (unknown) (no date) (unknown) (unknown) 15:00 (units unknown) (unknown) (unknown) (no date) (unknown) (unknown) 15:30 07/04/22 (unit s unknown) (unknown) (unknown) (no date) (unknown) (unknown) 16:00 07/04/22 (unit s unknown) (unknown) (unknown) (no date) (unknown) (unknown) 16:00 (units unknown) (unknown) (unknown) (no date) (unknown) (unknown) 16:30 07/04/22 (unit s unknown) (unknown) (unknown) (no date) (unknown) (unknown) 17:00 (units unknown) (unknown) (unknown) (no date) (unknown) (unknown) 17:15 07/04/22 (unit s unknown) (unknown) (unknown) (no date) (unknown) (unknown) 17:30 07/04/22 (unit s unknown) (unknown) (unknown) (no date) (unknown) (unknown) 17:30 (units unknown) (unknown) (unknown) (no date) (unknown) (unknown) 18:00 07/04/22 (unit s unknown) (unknown) (unknown) (no date) (unknown) (unknown) 18:00 (units unknown) (unknown) (unknown) (no date) (unknown) (unknown) 18:07 07/04/22 (unit s unknown) (unknown) (unknown) (no date) (unknown) (unknown) 18:11 (units unknown) (unknown) (unknown) (no date) (unknown) (unknown) 18:30 07/04/22 (unit s unknown) (unknown) (unknown) (no date) (unknown) (unknown) 18:30 (units unknown) (unknown) (unknown) (no date) (unknown) (unknown) 18:54 07/04/22 (unit s unknown) (unknown) (unknown) (no date) (unknown) (unknown) 18:54 (units unknown) (unknown) (unknown) (no date) (unknown) (unknown) 2. Degenerativ e and postsurgical changes in cervical spine.? (units unknown) (unknown) (unknown) (no date) (unknown) (unknown) 2290 (units unknown) (unknown) (unknown) (no date) (unknown) (unknown) 46-year-old ma le presented to the emergency department with multiple complaints. (units unknown) (unknown) (unknown) (no date) (unknown) (unknown) 46-year-old ma le with history of TBI, ADHD presents with concern for possible (units unknown) (unknown) (unknown) (no date) (unknown) (unknown) ? (units unknown) (unknown) (unknown) (no date) (unknown) (unknown) ALT (<50) IU/L (unit s unknown) (unknown) (unknown) (no date) (unknown) (unknown) ALT 21 (<50) IU/L (u nits unknown) (unknown) (unknown) (no date) (unknown) (unknown) AST (17-59) IU/L (un its unknown) (unknown) (unknown) (no date) (unknown) (unknown) AST 23 (17-59) IU/L (units unknown) (unknown) (unknown) (no date) (unknown) (unknown) Accession Numb er: [id number] ?? (units unknown) (unknown) (unknown) (no date) (unknown) (unknown) Accession Numb er: [id number] ?? (units unknown) (unknown) (unknown) (no date) (unknown) (unknown) Acct:[id number] (uni ts unknown) (unknown) (unknown) (no date) (unknown) (unknown) Activity Restrictions/Addition al Instructions: (units unknown) (unknown) (unknown) (no date) (unknown) (unknown) Admin: 3 16:13 Dose: 1,000 mls/hr (units unknown) (unknown) (unknown) (no date) (unknown) (unknown) Age/Sex: 46 / M (uni ts unknown) (unknown) (unknown) (no date) (unknown) (unknown) Agree with radiology's interpretation of the imaging (units unknown) (unknown) (unknown) (no date) (unknown) (unknown) Albumin (3.5-5 .0) g/dL (units unknown) (unknown) (unknown) (no date) (unknown) (unknown) Albumin 4.5 (3 .5-5.0) g/dL (units unknown) (unknown) (unknown) (no date) (unknown) (unknown) Albumin/Globul in Ratio (1.0-2.8) (units unknown) (unknown) (unknown) (no date) (unknown) (unknown) Albumin/Globul in Ratio 1.6 (1.0-2.8) (units unknown) (unknown) (unknown) (no date) (unknown) (unknown) Alkaline Phosp hatase (38-126) U/L (units unknown) (unknown) (unknown) (no date) (unknown) (unknown) Alkaline Phosp hatase 74 (38-126) U/L (units unknown) (unknown) (unknown) (no date) (unknown) (unknown) Allergies (units unknown) (unknown) (unknown) (no date) (unknown) (unknown) Allergy/AdvRea c Type Severity Reaction Status Date / Time (units unknown) (unknown) (unknown) (no date) (unknown) (unknown) Amorphous Sediment 1 (units unknown) (unknown) (unknown) (no date) (unknown) (unknown) Amorphous Sediment ( units unknown) (unknown) (unknown) (no date) (unknown) (unknown) [place] [address] (units unknown) (unknown) (unknown) (no date) (unknown) (unknown) Approved by: Allyssa Sherwood M.D. on 07/04/2022 at 12:28?? (units unknown) (unknown) (unknown) (no date) (unknown) (unknown) Approved by: Allyssa Sherwood M.D. on 07/04/2022 at 12:33?? (units unknown) (unknown) (unknown) (no date) (unknown) (unknown) Attestation: I personally reviewed and interpreted this imaging study as (units unknown) (unknown) (unknown) (no date) (unknown) (unknown) Attestation: I reviewed the patient's lab results. (units unknown) (unknown) (unknown) (no date) (unknown) (unknown) Attestation: I reviewed the patient's medical records. (units unknown) (unknown) (unknown) (no date) (unknown) (unknown) BACK: Nontende r without deformity or crepitance. No flank tenderness. (units unknown) (unknown) (unknown) (no date) (unknown) (unknown) BUN (9-20) mg/dL (un its unknown) (unknown) (unknown) (no date) (unknown) (unknown) BUN 16 (9-20) mg/dL (units unknown) (unknown) (unknown) (no date) (unknown) (unknown) BUN/Creatinine Ratio (6-22) (units unknown) (unknown) (unknown) (no date) (unknown) (unknown) BUN/Creatinine Ratio 17.8 (6-22) (units unknown) (unknown) (unknown) (no date) (unknown) (unknown) Baso # (Auto) (0-100) /uL (units unknown) (unknown) (unknown) (no date) (unknown) (unknown) Baso # (Auto) 100 (0-100) /uL (units unknown) (unknown) (unknown) (no date) (unknown) (unknown) Baso % (Auto) (0-2) % (units unknown) (unknown) (unknown) (no date) (unknown) (unknown) Baso % (Auto) 1.0 (0-2) % (units unknown) (unknown) (unknown) (no date) (unknown) (unknown) Bladder incont inence, Constipation, Headache (units unknown) (unknown) (unknown) (no date) (unknown) (unknown) Blood Pressure 120/83 136/89 (units unknown) (unknown) (unknown) (no date) (unknown) (unknown) Blood Pressure 136/8 6 (units unknown) (unknown) (unknown) (no date) (unknown) (unknown) Blood Pressure 141/84 H 170/95 H (units unknown) (unknown) (unknown) (no date) (unknown) (unknown) Blood Pressure 147/75 H 133/84 (units unknown) (unknown) (unknown) (no date) (unknown) (unknown) Blood Pressure 152/112 H (units unknown) (unknown) (unknown) (no date) (unknown) (unknown) Blood Pressure 152/93 H 142/102 H (units unknown) (unknown) (unknown) (no date) (unknown) (unknown) Blood Pressure 152/99 H (units unknown) (unknown) (unknown) (no date) (unknown) (unknown) Blood Pressure 172/112 H (units unknown) (unknown) (unknown) (no date) (unknown) (unknown) Blood Pressure (unit s unknown) (unknown) (unknown) (no date) (unknown) (unknown) Bones:? No fra ctures or dislocations.? There is loss of normal cervical (units unknown) (unknown) (unknown) (no date) (unknown) (unknown) Brain:? No mid line shift.? No intracranial masses or hemorrhage.? Schaeffer-white (units unknown) (unknown) (unknown) (no date) (unknown) (unknown) CARDIOVASCULAR : Regular rate and rhythm without murmurs, gallops, or rubs. (units unknown) (unknown) (unknown) (no date) (unknown) (unknown) COMPARISON:? [facility], CR, XR CERVICAL SPINE 2V OR 3V, 05/16/2022, 20:57.? (units unknown) (unknown) (unknown) (no date) (unknown) (unknown) COMPARISON:? None. ( units unknown) (unknown) (unknown) (no date) (unknown) (unknown) CSF spaces:? B keesha cisterns are patent.? No extra-axial fluid collections.? (units unknown) (unknown) (unknown) (no date) (unknown) (unknown) CT Scan Report (unit s unknown) (unknown) (unknown) (no date) (unknown) (unknown) CT head and ne ck done due to his headache and TBI history. These returned (units unknown) (unknown) (unknown) (no date) (unknown) (unknown) CT neck: (units unknown) (unknown) (unknown) (no date) (unknown) (unknown) CT scan - head: (uni ts unknown) (unknown) (unknown) (no date) (unknown) (unknown) Calcium (8.4-1 0.2) mg/dL (units unknown) (unknown) (unknown) (no date) (unknown) (unknown) Calcium 9.5 (8.4-10.2) mg/dL (units unknown) (unknown) (unknown) (no date) (unknown) (unknown) Carbon Dioxide (22-32) mmol/L (units unknown) (unknown) (unknown) (no date) (unknown) (unknown) Carbon Dioxide 26 (22-32) mmol/L (units unknown) (unknown) (unknown) (no date) (unknown) (unknown) Chief complain t: Head Injury (units unknown) (unknown) (unknown) (no date) (unknown) (unknown) Chloride (98-1 07) mmol/L (units unknown) (unknown) (unknown) (no date) (unknown) (unknown) Chloride 104 ( 98-107) mmol/L (units unknown) (unknown) (unknown) (no date) (unknown) (unknown) Clinical Impression: (units unknown) (unknown) (unknown) (no date) (unknown) (unknown) Course (units unknown) (unknown) (unknown) (no date) (unknown) (unknown) Creatinine (0.66-1.25) mg/dL (units unknown) (unknown) (unknown) (no date) (unknown) (unknown) Creatinine 0.9 0 (0.66-1.25) mg/dL (units unknown) (unknown) (unknown) (no date) (unknown) (unknown) : 7 Acct:[id number] (units unknown) (unknown) (unknown) (no date) (unknown) (unknown) : 1975 (uni ts unknown) (unknown) (unknown) (no date) (unknown) (unknown) Date of Servic e: 07/04/22 (units unknown) (unknown) (unknown) (no date) (unknown) (unknown) Department for any worsening or persistent symptoms. Please take medications as (units unknown) (unknown) (unknown) (no date) (unknown) (unknown) Departure (units unknown) (unknown) (unknown) (no date) (unknown) (unknown) Dictated by: Allyssa Sherwood M.D. on 07/04/2022 at 12:27 ? ? (units unknown) (unknown) (unknown) (no date) (unknown) (unknown) Dictated by: Allyssa Sherwood M.D. on 07/04/2022 at 12:30 ? ? (units unknown) (unknown) (unknown) (no date) (unknown) (unknown) Differential Diagnosis (units unknown) (unknown) (unknown) (no date) (unknown) (unknown) Differential diagnosis: Likely closed head injury, subdural hematoma and other (units unknown) (unknown) (unknown) (no date) (unknown) (unknown) Discharge Plan (unit s unknown) (unknown) (unknown) (no date) (unknown) (unknown) Discontinued Medications (units unknown) (unknown) (unknown) (no date) (unknown) (unknown) Documented By: AB (u nits unknown) (unknown) (unknown) (no date) (unknown) (unknown) ENT: Nose with out bleeding, purulent drainage. Throat without erythema, (units unknown) (unknown) (unknown) (no date) (unknown) (unknown) ER Physician: Suzanne Funk P.A-C (units unknown) (unknown) (unknown) (no date) (unknown) (unknown) EXTREMITIES: N o edema or joint tenderness. (units unknown) (unknown) (unknown) (no date) (unknown) (unknown) EYES: Pupils e qual round and reactive. Extraocular motions intact. No scleral (units unknown) (unknown) (unknown) (no date) (unknown) (unknown) Emergency Report (un its unknown) (unknown) (unknown) (no date) (unknown) (unknown) Eos # (Auto) ( 0-450) /uL (units unknown) (unknown) (unknown) (no date) (unknown) (unknown) Eos # (Auto) 1 00 (0-450) /uL (units unknown) (unknown) (unknown) (no date) (unknown) (unknown) Eos % (Auto) (2-4) % (units unknown) (unknown) (unknown) (no date) (unknown) (unknown) Eos % (Auto) 2 .2 (2-4) % (units unknown) (unknown) (unknown) (no date) (unknown) (unknown) Estimated GFR > 60 (>60) mL/min (units unknown) (unknown) (unknown) (no date) (unknown) (unknown) Estimated GFR (>60) mL/min (units unknown) (unknown) (unknown) (no date) (unknown) (unknown) Ethyl Alcohol < 10 ( - 10) mg/dL (units unknown) (unknown) (unknown) (no date) (unknown) (unknown) Ethyl Alcohol ( - 10) mg/dL (units unknown) (unknown) (unknown) (no date) (unknown) (unknown) Exam Narrative: (uni ts unknown) (unknown) (unknown) (no date) (unknown) (unknown) Exam (units unknown) (unknown) (unknown) (no date) (unknown) (unknown) FINDINGS:? (units unknown) (unknown) (unknown) (no date) (unknown) (unknown) GASTROINTESTIN AL: Abdomen soft, non-tender, nondistended, patient has mild (units unknown) (unknown) (unknown) (no date) (unknown) (unknown) GENERAL: 46 ye ar old patient appears stated age. Well-developed patient, in mild (units unknown) (unknown) (unknown) (no date) (unknown) (unknown) General (units unknown) (unknown) (unknown) (no date) (unknown) (unknown) Globulin (1.7- 4.1) g/dL (units unknown) (unknown) (unknown) (no date) (unknown) (unknown) Globulin 2.9 (1.7-4.1) g/dL (units unknown) (unknown) (unknown) (no date) (unknown) (unknown) Glucose (70-10 0) mg/dL (units unknown) (unknown) (unknown) (no date) (unknown) (unknown) Glucose 88 (70 -100) mg/dL (units unknown) (unknown) (unknown) (no date) (unknown) (unknown) HEAD: Atraumat ic. Normocephalic. (units unknown) (unknown) (unknown) (no date) (unknown) (unknown) HPI - Head Injury (u nits unknown) (unknown) (unknown) (no date) (unknown) (unknown) HPI Narrative: (unit s unknown) (unknown) (unknown) (no date) (unknown) (unknown) Hct (41-53) % (units unknown) (unknown) (unknown) (no date) (unknown) (unknown) Hct 43.7 (41-53) % ( units unknown) (unknown) (unknown) (no date) (unknown) (unknown) He describes h is headache pain as on the right and low down in the back of his (units unknown) (unknown) (unknown) (no date) (unknown) (unknown) Hgb (13.5-17.5) g/dL (units unknown) (unknown) (unknown) (no date) (unknown) (unknown) Hgb 14.9 (13.5 -17.5) g/dL (units unknown) (unknown) (unknown) (no date) (unknown) (unknown) History of Pre sent Illness (units unknown) (unknown) (unknown) (no date) (unknown) (unknown) History of TBI with persistent neuro symptoms and unsteady gait with frequent (units unknown) (unknown) (unknown) (no date) (unknown) (unknown) [facility], , MR CERVICAL SPINE WO CON, 05/16/2022, 18:28. (units unknown) (unknown) (unknown) (no date) (unknown) (unknown) I agree with radiologist's interpretation of the image (units unknown) (unknown) (unknown) (no date) (unknown) (unknown) IMPRESSION:? (units unknown) (unknown) (unknown) (no date) (unknown) (unknown) INDICATIONS:? prior head injury, ligamentous injury, diaz, urine problems (units unknown) (unknown) (unknown) (no date) (unknown) (unknown) Image quality: ? Excellent.? (units unknown) (unknown) (unknown) (no date) (unknown) (unknown) Imaging Data (units unknown) (unknown) (unknown) (no date) (unknown) (unknown) Initial Vital Signs (units unknown) (unknown) (unknown) (no date) (unknown) (unknown) Initial Vital Signs: (units unknown) (unknown) (unknown) (no date) (unknown) (unknown) [address] [address] (units unknown) (unknown) (unknown) (no date) (unknown) (unknown) (uni ts unknown) (unknown) (unknown) (no date) (unknown) (unknown) Ida (units unknown) (unknown) (unknown) (no date) (unknown) (unknown) Ketorolac Tromethamine (Ketorolac 30 Mg/Ml Vial) 15 mg IV NOW ONE (units unknown) (unknown) (unknown) (no date) (unknown) (unknown) Jd Skinner MD [Physician] (units unknown) (unknown) (unknown) (no date) (unknown) (unknown) Lab Data (units unknown) (unknown) (unknown) (no date) (unknown) (unknown) Lab Results (units unknown) (unknown) (unknown) (no date) (unknown) (unknown) Labs: (units unknown) (unknown) (unknown) (no date) (unknown) (unknown) Last Admin: 16:13 Dose: 15 mg (units unknown) (unknown) (unknown) (no date) (unknown) (unknown) Last Infusion: 07/04/22 17:12 Dose: 0 mls/hr (units unknown) (unknown) (unknown) (no date) (unknown) (unknown) Lipase (23-300) U/L (units unknown) (unknown) (unknown) (no date) (unknown) (unknown) Lipase 60 (23- 300) U/L (units unknown) (unknown) (unknown) (no date) (unknown) (unknown) Loc: ED (units unknown) (unknown) (unknown) (no date) (unknown) (unknown) Lymph # (Auto) (3223-4318) /uL (units unknown) (unknown) (unknown) (no date) (unknown) (unknown) Lymph # (Auto) 1100 (9285-9887) /uL (units unknown) (unknown) (unknown) (no date) (unknown) (unknown) Lymph % (Auto) (25-40) % (units unknown) (unknown) (unknown) (no date) (unknown) (unknown) Lymph % (Auto) 20.0 L (25-40) % (units unknown) (unknown) (unknown) (no date) (unknown) (unknown) MCH (26-34) PG (unit s unknown) (unknown) (unknown) (no date) (unknown) (unknown) MCH 30.2 (26-34) PG (units unknown) (unknown) (unknown) (no date) (unknown) (unknown) MCHC (30-36) % (unit s unknown) (unknown) (unknown) (no date) (unknown) (unknown) MCHC 34.0 (30-36) % (units unknown) (unknown) (unknown) (no date) (unknown) (unknown) MCV (80-100) fL (uni ts unknown) (unknown) (unknown) (no date) (unknown) (unknown) MCV 88.8 (80-100) fL (units unknown) (unknown) (unknown) (no date) (unknown) (unknown) MDM - Head Injury (u nits unknown) (unknown) (unknown) (no date) (unknown) (unknown) MDM Narrative (units unknown) (unknown) (unknown) (no date) (unknown) (unknown) MR#: [id number] (uni ts unknown) (unknown) (unknown) (no date) (unknown) (unknown) Medical Records (uni ts unknown) (unknown) (unknown) (no date) (unknown) (unknown) Medical decisi on making narrative: (units unknown) (unknown) (unknown) (no date) (unknown) (unknown) Medication Instructions Recorded (units unknown) (unknown) (unknown) (no date) (unknown) (unknown) Mode of arriva l: Ambulatory (units unknown) (unknown) (unknown) (no date) (unknown) (unknown) [place] # (Auto) (0-900) /uL (units unknown) (unknown) (unknown) (no date) (unknown) (unknown) [place] # (Auto) 400 (0-900) /uL (units unknown) (unknown) (unknown) (no date) (unknown) (unknown) [place] % (Auto) (3-14) % (units unknown) (unknown) (unknown) (no date) (unknown) (unknown) [place] % (Auto) 7.4 (3-14) % (units unknown) (unknown) (unknown) (no date) (unknown) (unknown) My Impression: (unit s unknown) (unknown) (unknown) (no date) (unknown) (unknown) NECK: Trachea midline. Non tender (units unknown) (unknown) (unknown) (no date) (unknown) (unknown) NEURO: AOx3. C ranial nerves 2-12 is intact, patient does have nystagmus which (units unknown) (unknown) (unknown) (no date) (unknown) (unknown) Narrative (units unknown) (unknown) (unknown) (no date) (unknown) (unknown) Narrative: (units unknown) (unknown) (unknown) (no date) (unknown) (unknown) Neut # (Auto) (7443-9100) /uL (units unknown) (unknown) (unknown) (no date) (unknown) (unknown) Neut # (Auto) 3700 (3609-5319) /uL (units unknown) (unknown) (unknown) (no date) (unknown) (unknown) Neut % (Auto) (50-75) % (units unknown) (unknown) (unknown) (no date) (unknown) (unknown) Neut % (Auto) 69.4 (50-75) % (units unknown) (unknown) (unknown) (no date) (unknown) (unknown) No Action (units unknown) (unknown) (unknown) (no date) (unknown) (unknown) Noncontrast 3 mm thick sections acquired from the skull base to the T4 level.? (units unknown) (unknown) (unknown) (no date) (unknown) (unknown) Noncontrast 4. 5 mm thick angled axial sections acquired from the foramen magnum (units unknown) (unknown) (unknown) (no date) (unknown) (unknown) Ordered: (units unknown) (unknown) (unknown) (no date) (unknown) (unknown) Ordering Provjason shannan: Regla Whitman D.O. (units unknown) (unknown) (unknown) (no date) (unknown) (unknown) Orders (units unknown) (unknown) (unknown) (no date) (unknown) (unknown) Oxygen Deliver y Method Room Air 07/04/22 12:36 (units unknown) (unknown) (unknown) (no date) (unknown) (unknown) Oxygen Deliver y Method Room Air (units unknown) (unknown) (unknown) (no date) (unknown) (unknown) Oxygen Deliver y Method (units unknown) (unknown) (unknown) (no date) (unknown) (unknown) PROCEDURE:? CT CERVICAL SPINE WO CON (units unknown) (unknown) (unknown) (no date) (unknown) (unknown) PROCEDURE:? CT HEAD/BRAIN WO CON (units unknown) (unknown) (unknown) (no date) (unknown) (unknown) Patient Dispos ition: Home (units unknown) (unknown) (unknown) (no date) (unknown) (unknown) Patient History (uni ts unknown) (unknown) (unknown) (no date) (unknown) (unknown) Patient is con cerned because he says for the last month he is only had a bowel (units unknown) (unknown) (unknown) (no date) (unknown) (unknown) Patient: Corbin Barrera MR#: [id number] (units unknown) (unknown) (unknown) (no date) (unknown) (unknown) Patient: Mychal Mathews (units unknown) (unknown) (unknown) (no date) (unknown) (unknown) Please call [facility] office for an appointment. Please return to the Emergency (units unknown) (unknown) (unknown) (no date) (unknown) (unknown) Plt Count (150 -400) X103/uL (units unknown) (unknown) (unknown) (no date) (unknown) (unknown) Plt Count 244 (150-400) X103/uL (units unknown) (unknown) (unknown) (no date) (unknown) (unknown) Potassium (3.4 -5.1) mmol/L (units unknown) (unknown) (unknown) (no date) (unknown) (unknown) Potassium 4.1 (3.4-5.1) mmol/L (units unknown) (unknown) (unknown) (no date) (unknown) (unknown) Prescriptions: (unit s unknown) (unknown) (unknown) (no date) (unknown) (unknown) Previous Rx's (units unknown) (unknown) (unknown) (no date) (unknown) (unknown) Procedure: CT cervical spine wo con (units unknown) (unknown) (unknown) (no date) (unknown) (unknown) Procedure: CT head/brain wo con (units unknown) (unknown) (unknown) (no date) (unknown) (unknown) Pulse Oximetry 96 97 97 (units unknown) (unknown) (unknown) (no date) (unknown) (unknown) Pulse Oximetry 97 97 (units unknown) (unknown) (unknown) (no date) (unknown) (unknown) Pulse Oximetry 97 98 (units unknown) (unknown) (unknown) (no date) (unknown) (unknown) Pulse Oximetry 97 (u nits unknown) (unknown) (unknown) (no date) (unknown) (unknown) Pulse Oximetry 98 07/04/22 12:36 (units unknown) (unknown) (unknown) (no date) (unknown) (unknown) Pulse Oximetry 98 96 (units unknown) (unknown) (unknown) (no date) (unknown) (unknown) Pulse Oximetry 98 99 (units unknown) (unknown) (unknown) (no date) (unknown) (unknown) Pulse Oximetry 98 (u nits unknown) (unknown) (unknown) (no date) (unknown) (unknown) Pulse Rate 56 L (uni ts unknown) (unknown) (unknown) (no date) (unknown) (unknown) Pulse Rate 59 L (uni ts unknown) (unknown) (unknown) (no date) (unknown) (unknown) Pulse Rate 60 61 (un its unknown) (unknown) (unknown) (no date) (unknown) (unknown) Pulse Rate 61 67 (un its unknown) (unknown) (unknown) (no date) (unknown) (unknown) Pulse Rate 63 63 66 (units unknown) (unknown) (unknown) (no date) (unknown) (unknown) Pulse Rate 64 (units unknown) (unknown) (unknown) (no date) (unknown) (unknown) Pulse Rate 66 66 (un its unknown) (unknown) (unknown) (no date) (unknown) (unknown) Pulse Rate 66 (units unknown) (unknown) (unknown) (no date) (unknown) (unknown) Pulse Rate 69 07/04/22 12:36 (units unknown) (unknown) (unknown) (no date) (unknown) (unknown) Pulse Rate 69 70 (un its unknown) (unknown) (unknown) (no date) (unknown) (unknown) RBC (4.5-5.9) X106/u L (units unknown) (unknown) (unknown) (no date) (unknown) (unknown) RBC 4.92 (4.5- 5.9) X106/uL (units unknown) (unknown) (unknown) (no date) (unknown) (unknown) RDW (11.6-14.8) % (u nits unknown) (unknown) (unknown) (no date) (unknown) (unknown) RDW 12.7 (11.6 -14.8) % (units unknown) (unknown) (unknown) (no date) (unknown) (unknown) RESPIRATORY: C lear to auscultation. Breath sounds equal bilaterally. No wheezes, (units unknown) (unknown) (unknown) (no date) (unknown) (unknown) Radiologist's Impression: (units unknown) (unknown) (unknown) (no date) (unknown) (unknown) Referrals: (units unknown) (unknown) (unknown) (no date) (unknown) (unknown) Related Data (units unknown) (unknown) (unknown) (no date) (unknown) (unknown) Respiratory Ra te 12 07/04/22 12:36 (units unknown) (unknown) (unknown) (no date) (unknown) (unknown) Respiratory Rate 12 (units unknown) (unknown) (unknown) (no date) (unknown) (unknown) Respiratory Rate 16 (units unknown) (unknown) (unknown) (no date) (unknown) (unknown) Respiratory Ra te 18 30 H (units unknown) (unknown) (unknown) (no date) (unknown) (unknown) Respiratory Ra te 21 28 H (units unknown) (unknown) (unknown) (no date) (unknown) (unknown) Respiratory Ra te 22 22 (units unknown) (unknown) (unknown) (no date) (unknown) (unknown) Respiratory Rate 23 (units unknown) (unknown) (unknown) (no date) (unknown)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 (unknown) (unknown) (UTI, incontin ence, constipation) (units unknown) (unknown) (unknown) (no date) (unknown) (unknown) 07/04/2207/0407/04/22 Range/Units (units unknown) (unknown) (unknown) (no date) (unknown) (unknown) 07/04/22 13:10 (unit s unknown) (unknown) (unknown) (no date) (unknown) (unknown) 07/04/22 Range/Units (units unknown) (unknown) (unknown) (no date) (unknown) (unknown) 07/04/22 (units unknown) (unknown) (unknown) (no date) (unknown) (unknown) 07/08/22 1246 (units unknown) (unknown) (unknown) (no date) (unknown) (unknown) 07/08/22 1248 (units unknown) (unknown) (unknown) (no date) (unknown) (unknown) 1 tab PO Q6H P RN (Reason: pain) Qty: 10 0RF (units unknown) (unknown) (unknown) (no date) (unknown) (unknown) 1,500 mg PO Q8 H PRN (Reason: muscle spasm) Qty: 20 0RF (units unknown) (unknown) (unknown) (no date) (unknown) (unknown) 1. No acute intracranial abnormalities. (units unknown) (unknown) (unknown) (no date) (unknown) (unknown) 1. No acute os seous abnormalities. (units unknown) (unknown) (unknown) (no date) (unknown) (unknown) [address] (un its unknown) (unknown) (unknown) (no date) (unknown) (unknown) 12:36 07/04/22 (unit s unknown) (unknown) (unknown) (no date) (unknown) (unknown) 12:44 07/04/22 (unit s unknown) (unknown) (unknown) (no date) (unknown) (unknown) 13:10 13:10 18:04 (u nits unknown) (unknown) (unknown) (no date) (unknown) (unknown) 14:04 (units unknown) (unknown) (unknown) (no date) (unknown) (unknown) 14:05 07/04/22 (unit s unknown) (unknown) (unknown) (no date) (unknown) (unknown) 14:30 07/04/22 (unit s unknown) (unknown) (unknown) (no date) (unknown) (unknown) 14:30 (units unknown) (unknown) (unknown) (no date) (unknown) (unknown) 15:00 07/04/22 (unit s unknown) (unknown) (unknown) (no date) (unknown) (unknown) 15:00 (units unknown) (unknown) (unknown) (no date) (unknown) (unknown) 15:30 07/04/22 (unit s unknown) (unknown) (unknown) (no date) (unknown) (unknown) 16:00 07/04/22 (unit s unknown) (unknown) (unknown) (no date) (unknown) (unknown) 16:00 (units unknown) (unknown) (unknown) (no date) (unknown) (unknown) 16:30 07/04/22 (unit s unknown) (unknown) (unknown) (no date) (unknown) (unknown) 17:00 (units unknown) (unknown) (unknown) (no date) (unknown) (unknown) 17:15 07/04/22 (unit s unknown) (unknown) (unknown) (no date) (unknown) (unknown) 17:30 07/04/22 (unit s unknown) (unknown) (unknown) (no date) (unknown) (unknown) 17:30 (units unknown) (unknown) (unknown) (no date) (unknown) (unknown) 18:00 07/04/22 (unit s unknown) (unknown) (unknown) (no date) (unknown) (unknown) 18:00 (units unknown) (unknown) (unknown) (no date) (unknown) (unknown) 18:07 07/04/22 (unit s unknown) (unknown) (unknown) (no date) (unknown) (unknown) 18:11 (units unknown) (unknown) (unknown) (no date) (unknown) (unknown) 18:30 07/04/22 (unit s unknown) (unknown) (unknown) (no date) (unknown) (unknown) 18:30 (units unknown) (unknown) (unknown) (no date) (unknown) (unknown) 18:54 07/04/22 (unit s unknown) (unknown) (unknown) (no date) (unknown) (unknown) 18:54 (units unknown) (unknown) (unknown) (no date) (unknown) (unknown) 2. Degenerativ e and postsurgical changes in cervical spine.? (units unknown) (unknown) (unknown) (no date) (unknown) (unknown) 2290 (units unknown) (unknown) (unknown) (no date) (unknown) (unknown) 46-year-old ma le presented to the emergency department with multiple complaints. (units unknown) (unknown) (unknown) (no date) (unknown) (unknown) 46-year-old ma le with history of TBI, ADHD presents with concern for possible (units unknown) (unknown) (unknown) (no date) (unknown) (unknown) ? (units unknown) (unknown) (unknown) (no date) (unknown) (unknown) ALT (<50) IU/L (unit s unknown) (unknown) (unknown) (no date) (unknown) (unknown) ALT 21 (<50) IU/L (u nits unknown) (unknown) (unknown) (no date) (unknown) (unknown) AST (17-59) IU/L (un its unknown) (unknown) (unknown) (no date) (unknown) (unknown) AST 23 (17-59) IU/L (units unknown) (unknown) (unknown) (no date) (unknown) (unknown) Accession Numb er: [id number] ?? (units unknown) (unknown) (unknown) (no date) (unknown) (unknown) Accession Numb er: [id number] ?? (units unknown) (unknown) (unknown) (no date) (unknown) (unknown) Accession Numb er: [id number] ?? (units unknown) (unknown) (unknown) (no date) (unknown) (unknown) Acct:[id number] (uni ts unknown) (unknown) (unknown) (no date) (unknown) (unknown) Activity Restrictions/Addition al Instructions: (units unknown) (unknown) (unknown) (no date) (unknown) (unknown) Admin: 3 16:13 Dose: 1,000 mls/hr (units unknown) (unknown) (unknown) (no date) (unknown) (unknown) Age/Sex: 46 / M (uni ts unknown) (unknown) (unknown) (no date) (unknown) (unknown) Agree with radiology's interpretation of the imaging (units unknown) (unknown) (unknown) (no date) (unknown) (unknown) Albumin (3.5-5 .0) g/dL (units unknown) (unknown) (unknown) (no date) (unknown) (unknown) Albumin 4.5 (3 .5-5.0) g/dL (units unknown) (unknown) (unknown) (no date) (unknown) (unknown) Albumin/Globul in Ratio (1.0-2.8) (units unknown) (unknown) (unknown) (no date) (unknown) (unknown) Albumin/Globul in Ratio 1.6 (1.0-2.8) (units unknown) (unknown) (unknown) (no date) (unknown) (unknown) Alkaline Phosp hatase (38-126) U/L (units unknown) (unknown) (unknown) (no date) (unknown) (unknown) Alkaline Phosp hatase 74 (38-126) U/L (units unknown) (unknown) (unknown) (no date) (unknown) (unknown) Allergies (units unknown) (unknown) (unknown) (no date) (unknown) (unknown) Allergy/AdvRea c Type Severity Reaction Status Date / Time (units unknown) (unknown) (unknown) (no date) (unknown) (unknown) Amorphous Sediment 1 (units unknown) (unknown) (unknown) (no date) (unknown) (unknown) Amorphous Sediment ( units unknown) (unknown) (unknown) (no date) (unknown) (unknown) [place] [address] (units unknown) (unknown) (unknown) (no date) (unknown) (unknown) Approved by: Allyssa Sherwood M.D. on 07/04/2022 at 12:28?? (units unknown) (unknown) (unknown) (no date) (unknown) (unknown) Approved by: Allyssa Sherwood M.D. on 07/04/2022 at 12:33?? (units unknown) (unknown) (unknown) (no date) (unknown) (unknown) Approved by: Allyssa Wood M.D. on 07/04/2022 at 16:13?? (units unknown) (unknown) (unknown) (no date) (unknown) (unknown) Attestation: I personally reviewed and interpreted this imaging study as (units unknown) (unknown) (unknown) (no date) (unknown) (unknown) Attestation: I reviewed the patient's lab results. (units unknown) (unknown) (unknown) (no date) (unknown) (unknown) Attestation: I reviewed the patient's medical records. (units unknown) (unknown) (unknown) (no date) (unknown) (unknown) BACK: Nontende r without deformity or crepitance. No flank tenderness. (units unknown) (unknown) (unknown) (no date) (unknown) (unknown) BUN (9-20) mg/dL (un its unknown) (unknown) (unknown) (no date) (unknown) (unknown) BUN 16 (9-20) mg/dL (units unknown) (unknown) (unknown) (no date) (unknown) (unknown) BUN/Creatinine Ratio (6-22) (units unknown) (unknown) (unknown) (no date) (unknown) (unknown) BUN/Creatinine Ratio 17.8 (6-22) (units unknown) (unknown) (unknown) (no date) (unknown) (unknown) Baso # (Auto) (0-100) /uL (units unknown) (unknown) (unknown) (no date) (unknown) (unknown) Baso # (Auto) 100 (0-100) /uL (units unknown) (unknown) (unknown) (no date) (unknown) (unknown) Baso % (Auto) (0-2) % (units unknown) (unknown) (unknown) (no date) (unknown) (unknown) Baso % (Auto) 1.0 (0-2) % (units unknown) (unknown) (unknown) (no date) (unknown) (unknown) Bladder incont inence, Constipation, Headache (units unknown) (unknown) (unknown) (no date) (unknown) (unknown) Blood Pressure 120/83 136/89 (units unknown) (unknown) (unknown) (no date) (unknown) (unknown) Blood Pressure 136/8 6 (units unknown) (unknown) (unknown) (no date) (unknown) (unknown) Blood Pressure 141/84 H 170/95 H (units unknown) (unknown) (unknown) (no date) (unknown) (unknown) Blood Pressure 147/75 H 133/84 (units unknown) (unknown) (unknown) (no date) (unknown) (unknown) Blood Pressure 152/112 H (units unknown) (unknown) (unknown) (no date) (unknown) (unknown) Blood Pressure 152/93 H 142/102 H (units unknown) (unknown) (unknown) (no date) (unknown) (unknown) Blood Pressure 152/99 H (units unknown) (unknown) (unknown) (no date) (unknown) (unknown) Blood Pressure 172/112 H (units unknown) (unknown) (unknown) (no date) (unknown) (unknown) Blood Pressure (unit s unknown) (unknown) (unknown) (no date) (unknown) (unknown) Bones:? No fra ctures or dislocations.? There is loss of normal cervical (units unknown) (unknown) (unknown) (no date) (unknown) (unknown) Bones:? No rina picious bony lesions.? (units unknown) (unknown) (unknown) (no date) (unknown) (unknown) Bowel:? Bowel gas pattern is normal.? Moderately large right colonic fecal (units unknown) (unknown) (unknown) (no date) (unknown) (unknown) Brain:? No mid line shift.? No intracranial masses or hemorrhage.? Schaeffer-white (units unknown) (unknown) (unknown) (no date) (unknown) (unknown) CARDIOVASCULAR : Regular rate and rhythm without murmurs, gallops, or rubs. (units unknown) (unknown) (unknown) (no date) (unknown) (unknown) COMPARISON:? [facility], CR, XR CERVICAL SPINE 2V OR 3V, 05/16/2022, 20:57.? (units unknown) (unknown) (unknown) (no date) (unknown) (unknown) COMPARISON:? None. ( units unknown) (unknown) (unknown) (no date) (unknown) (unknown) CSF spaces:? B keesha cisterns are patent.? No extra-axial fluid collections.? (units unknown) (unknown) (unknown) (no date) (unknown) (unknown) CT Scan Report (unit s unknown) (unknown) (unknown) (no date) (unknown) (unknown) CT neck: (units unknown) (unknown) (unknown) (no date) (unknown) (unknown) CT scan - head: (uni ts unknown) (unknown) (unknown) (no date) (unknown) (unknown) Calcium (8.4-1 0.2) mg/dL (units unknown) (unknown) (unknown) (no date) (unknown) (unknown) Calcium 9.5 (8.4-10.2) mg/dL (units unknown) (unknown) (unknown) (no date) (unknown) (unknown) Carbon Dioxide (22-32) mmol/L (units unknown) (unknown) (unknown) (no date) (unknown) (unknown) Carbon Dioxide 26 (22-32) mmol/L (units unknown) (unknown) (unknown) (no date) (unknown) (unknown) Chief complain t: Head Injury (units unknown) (unknown) (unknown) (no date) (unknown) (unknown) Chloride (98-1 07) mmol/L (units unknown) (unknown) (unknown) (no date) (unknown) (unknown) Chloride 104 ( 98-107) mmol/L (units unknown) (unknown) (unknown) (no date) (unknown) (unknown) Clinical Impression: (units unknown) (unknown) (unknown) (no date) (unknown) (unknown) Cosign (units unknown) (unknown) (unknown) (no date) (unknown) (unknown) Course (units unknown) (unknown) (unknown) (no date) (unknown) (unknown) Creatinine (0.66-1.25) mg/dL (units unknown) (unknown) (unknown) (no date) (unknown) (unknown) Creatinine 0.9 0 (0.66-1.25) mg/dL (units unknown) (unknown) (unknown) (no date) (unknown) (unknown) : 7 Acct:[id number] (units unknown) (unknown) (unknown) (no date) (unknown) (unknown) : 1975 (uni ts unknown) (unknown) (unknown) (no date) (unknown) (unknown) Date of Servic e: 07/04/22 (units unknown) (unknown) (unknown) (no date) (unknown) (unknown) Department for any worsening or persistent symptoms. Please take medications as (units unknown) (unknown) (unknown) (no date) (unknown) (unknown) Departure (units unknown) (unknown) (unknown) (no date) (unknown) (unknown) Dictated by: Allyssa Sherwood M.D. on 07/04/2022 at 12:27 ? ? (units unknown) (unknown) (unknown) (no date) (unknown) (unknown) Dictated by: Allyssa Sherwood M.D. on 07/04/2022 at 12:30 ? ? (units unknown) (unknown) (unknown) (no date) (unknown) (unknown) Dictated by: Allyssa Wood M.D. on 07/04/2022 at 16:12 ? ? (units unknown) (unknown) (unknown) (no date) (unknown) (unknown) Differential Diagnosis (units unknown) (unknown) (unknown) (no date) (unknown) (unknown) Differential diagnosis: Likely closed head injury, subdural hematoma and other (units unknown) (unknown) (unknown) (no date) (unknown) (unknown) Discharge Plan (unit s unknown) (unknown) (unknown) (no date) (unknown) (unknown) Discontinued Medications (units unknown) (unknown) (unknown) (no date) (unknown) (unknown) Documented By: KM (u nits unknown) (unknown) (unknown) (no date) (unknown) (unknown) ED Attending Cosignature Attestation: (units unknown) (unknown) (unknown) (no date) (unknown) (unknown) ENT: Nose with out bleeding, purulent drainage. Throat without erythema, (units unknown) (unknown) (unknown) (no date) (unknown) (unknown) ER Physician: Suzanne Funk P.A-C (units unknown) (unknown) (unknown) (no date) (unknown) (unknown) EXTREMITIES: N o edema or joint tenderness. (units unknown) (unknown) (unknown) (no date) (unknown) (unknown) EYES: Pupils e qual round and reactive. Extraocular motions intact. No scleral (units unknown) (unknown) (unknown) (no date) (unknown) (unknown) Emergency Report (un its unknown) (unknown) (unknown) (no date) (unknown) (unknown) Eos # (Auto) ( 0-450) /uL (units unknown) (unknown) (unknown) (no date) (unknown) (unknown) Eos # (Auto) 1 00 (0-450) /uL (units unknown) (unknown) (unknown) (no date) (unknown) (unknown) Eos % (Auto) (2-4) % (units unknown) (unknown) (unknown) (no date) (unknown) (unknown) Eos % (Auto) 2 .2 (2-4) % (units unknown) (unknown) (unknown) (no date) (unknown) (unknown) Estimated GFR > 60 (>60) mL/min (units unknown) (unknown) (unknown) (no date) (unknown) (unknown) Estimated GFR (>60) mL/min (units unknown) (unknown) (unknown) (no date) (unknown) (unknown) Ethyl Alcohol < 10 ( - 10) mg/dL (units unknown) (unknown) (unknown) (no date) (unknown) (unknown) Ethyl Alcohol ( - 10) mg/dL (units unknown) (unknown) (unknown) (no date) (unknown) (unknown) Exam Narrative: (uni ts unknown) (unknown) (unknown) (no date) (unknown) (unknown) Exam (units unknown) (unknown) (unknown) (no date) (unknown) (unknown) FINDINGS:? (units unknown) (unknown) (unknown) (no date) (unknown) (unknown) GASTROINTESTIN AL: Abdomen soft, non-tender, nondistended, patient has mild (units unknown) (unknown) (unknown) (no date) (unknown) (unknown) GENERAL: 46 ye ar old patient appears stated age. Well-developed patient, in mild (units unknown) (unknown) (unknown) (no date) (unknown) (unknown) General (units unknown) (unknown) (unknown) (no date) (unknown) (unknown) Globulin (1.7- 4.1) g/dL (units unknown) (unknown) (unknown) (no date) (unknown) (unknown) Globulin 2.9 (1.7-4.1) g/dL (units unknown) (unknown) (unknown) (no date) (unknown) (unknown) Glucose (70-10 0) mg/dL (units unknown) (unknown) (unknown) (no date) (unknown) (unknown) Glucose 88 (70 -100) mg/dL (units unknown) (unknown) (unknown) (no date) (unknown) (unknown) HEAD: Atraumat ic. Normocephalic. (units unknown) (unknown) (unknown) (no date) (unknown) (unknown) HPI - Head Injury (u nits unknown) (unknown) (unknown) (no date) (unknown) (unknown) HPI Narrative: (unit s unknown) (unknown) (unknown) (no date) (unknown) (unknown) Hct (41-53) % (units unknown) (unknown) (unknown) (no date) (unknown) (unknown) Hct 43.7 (41-53) % ( units unknown) (unknown) (unknown) (no date) (unknown) (unknown) He describes h is headache pain as on the right and low down in the back of his (units unknown) (unknown) (unknown) (no date) (unknown) (unknown) Hgb (13.5-17.5) g/dL (units unknown) (unknown) (unknown) (no date) (unknown) (unknown) Hgb 14.9 (13.5 -17.5) g/dL (units unknown) (unknown) (unknown) (no date) (unknown) (unknown) History of Pre sent Illness (units unknown) (unknown) (unknown) (no date) (unknown) (unknown) [facility], , MR CERVICAL SPINE WO CON, 05/16/2022, 18:28. (units unknown) (unknown) (unknown) (no date) (unknown) (unknown) I agree with radiologist's interpretation of the image (units unknown) (unknown) (unknown) (no date) (unknown) (unknown) I was immediat marilyn available in the department for consultation. (units unknown) (unknown) (unknown) (no date) (unknown) (unknown) IMPRESSION:? N ormal bowel gas pattern.? Moderately large right colonic fecal (units unknown) (unknown) (unknown) (no date) (unknown) (unknown) IMPRESSION:? (units unknown) (unknown) (unknown) (no date) (unknown) (unknown) INDICATIONS:? incontinence/diff urinating; constipation (units unknown) (unknown) (unknown) (no date) (unknown) (unknown) INDICATIONS:? prior head injury, ligamentous injury, diaz, urine problems (units unknown) (unknown) (unknown) (no date) (unknown) (unknown) Image quality: ? Excellent.? (units unknown) (unknown) (unknown) (no date) (unknown) (unknown) Imaging Data (units unknown) (unknown) (unknown) (no date) (unknown) (unknown) Initial Vital Signs (units unknown) (unknown) (unknown) (no date) (unknown) (unknown) Initial Vital Signs: (units unknown) (unknown) (unknown) (no date) (unknown) (unknown) [address] [address] (units unknown) (unknown) (unknown) (no date) (unknown) (unknown) (uni ts unknown) (unknown) (unknown) (no date) (unknown) (unknown) Ida (units unknown) (unknown) (unknown) (no date) (unknown) (unknown) Ketorolac Tromethamine (Ketorolac 30 Mg/Ml Vial) 15 mg IV NOW ONE (units unknown) (unknown) (unknown) (no date) (unknown) (unknown) Jd Skinner MD [Physician] (units unknown) (unknown) (unknown) (no date) (unknown) (unknown) Lab Data (units unknown) (unknown) (unknown) (no date) (unknown) (unknown) Lab Results (units unknown) (unknown) (unknown) (no date) (unknown) (unknown) Labs: (units unknown) (unknown) (unknown) (no date) (unknown) (unknown) Last Admin: 16:13 Dose: 15 mg (units unknown) (unknown) (unknown) (no date) (unknown) (unknown) Last Infusion: 07/04/22 17:12 Dose: 0 mls/hr (units unknown) (unknown) (unknown) (no date) (unknown) (unknown) Lipase (23-300) U/L (units unknown) (unknown) (unknown) (no date) (unknown) (unknown) Lipase 60 (23- 300) U/L (units unknown) (unknown) (unknown) (no date) (unknown) (unknown) Loc: ED (units unknown) (unknown) (unknown) (no date) (unknown) (unknown) Lymph # (Auto) (9605-7442) /uL (units unknown) (unknown) (unknown) (no date) (unknown) (unknown) Lymph # (Auto) 1100 (2396-5218) /uL (units unknown) (unknown) (unknown) (no date) (unknown) (unknown) Lymph % (Auto) (25-40) % (units unknown) (unknown) (unknown) (no date) (unknown) (unknown) Lymph % (Auto) 20.0 L (25-40) % (units unknown) (unknown) (unknown) (no date) (unknown) (unknown) MCH (26-34) PG (unit s unknown) (unknown) (unknown) (no date) (unknown) (unknown) MCH 30.2 (26-34) PG (units unknown) (unknown) (unknown) (no date) (unknown) (unknown) MCHC (30-36) % (unit s unknown) (unknown) (unknown) (no date) (unknown) (unknown) MCHC 34.0 (30-36) % (units unknown) (unknown) (unknown) (no date) (unknown) (unknown) MCV (80-100) fL (uni ts unknown) (unknown) (unknown) (no date) (unknown) (unknown) MCV 88.8 (80-100) fL (units unknown) (unknown) (unknown) (no date) (unknown) (unknown) MDM - Head Injury (u nits unknown) (unknown) (unknown) (no date) (unknown) (unknown) MDM Narrative (units unknown) (unknown) (unknown) (no date) (unknown) (unknown) MR#: [id number] (uni ts unknown) (unknown) (unknown) (no date) (unknown) (unknown) Medical Records (uni ts unknown) (unknown) (unknown) (no date) (unknown) (unknown) Medical decisi on making narrative: (units unknown) (unknown) (unknown) (no date) (unknown) (unknown) Medication Instructions Recorded (units unknown) (unknown) (unknown) (no date) (unknown) (unknown) Mode of arriva l: Ambulatory (units unknown) (unknown) (unknown) (no date) (unknown) (unknown) [place] # (Auto) (0-900) /uL (units unknown) (unknown) (unknown) (no date) (unknown) (unknown) [place] # (Auto) 400 (0-900) /uL (units unknown) (unknown) (unknown) (no date) (unknown) (unknown) [place] % (Auto) (3-14) % (units unknown) (unknown) (unknown) (no date) (unknown) (unknown) [place] % (Auto) 7.4 (3-14) % (units unknown) (unknown) (unknown) (no date) (unknown) (unknown) My Impression: (unit s unknown) (unknown) (unknown) (no date) (unknown) (unknown) NECK: Trachea midline. Non tender (units unknown) (unknown) (unknown) (no date) (unknown) (unknown) NEURO: AOx3. C ranial nerves 2-12 is intact, patient does have nystagmus which (units unknown) (unknown) (unknown) (no date) (unknown) (unknown) Narrative (units unknown) (unknown) (unknown) (no date) (unknown) (unknown) Narrative: (units unknown) (unknown) (unknown) (no date) (unknown) (unknown) Neut # (Auto) (2235-5216) /uL (units unknown) (unknown) (unknown) (no date) (unknown) (unknown) Neut # (Auto) 3700 (0516-2473) /uL (units unknown) (unknown) (unknown) (no date) (unknown) (unknown) Neut % (Auto) (50-75) % (units unknown) (unknown) (unknown) (no date) (unknown) (unknown) Neut % (Auto) 69.4 (50-75) % (units unknown) (unknown) (unknown) (no date) (unknown) (unknown) No Action (units unknown) (unknown) (unknown) (no date) (unknown) (unknown) Noncontrast 3 mm thick sections acquired from the skull base to the T4 level.? (units unknown) (unknown) (unknown) (no date) (unknown) (unknown) Noncontrast 4. 5 mm thick angled axial sections acquired from the foramen magnum (units unknown) (unknown) (unknown) (no date) (unknown) (unknown) Notably the pa tient was seen in the emergency department yesterday and did (units unknown) (unknown) (unknown) (no date) (unknown) (unknown) Ordered: (units unknown) (unknown) (unknown) (no date) (unknown) (unknown) Ordering Provi shannan: Suzanne Funk P.A-C (units unknown) (unknown) (unknown) (no date) (unknown) (unknown) Ordering Provi shannan: Regla Whitman D.O. (units unknown) (unknown) (unknown) (no date) (unknown) (unknown) Orders (units unknown) (unknown) (unknown) (no date) (unknown) (unknown) Oxygen Deliver y Method Room Air 07/04/22 12:36 (units unknown) (unknown) (unknown) (no date) (unknown) (unknown) Oxygen Deliver y Method Room Air (units unknown) (unknown) (unknown) (no date) (unknown) (unknown) Oxygen Deliver y Method (units unknown) (unknown) (unknown) (no date) (unknown) (unknown) PROCEDURE:? CT CERVICAL SPINE WO CON (units unknown) (unknown) (unknown) (no date) (unknown) (unknown) PROCEDURE:? CT HEAD/BRAIN WO CON (units unknown) (unknown) (unknown) (no date) (unknown) (unknown) PROCEDURE:? XR KUB ( units unknown) (unknown) (unknown) (no date) (unknown) (unknown) Patient Dispos ition: Home (units unknown) (unknown) (unknown) (no date) (unknown) (unknown) Patient History (uni ts unknown) (unknown) (unknown) (no date) (unknown) (unknown) Patient is con cerned because he says for the last month he is only had a bowel (units unknown) (unknown) (unknown) (no date) (unknown) (unknown) Patient was discharged to home with return precautions provided, follow-up plan (units unknown) (unknown) (unknown) (no date) (unknown) (unknown) Patient: Corinne glasgowMychale MR#: [id number] (units unknown) (unknown) (unknown) (no date) (unknown) (unknown) Patient: Mychal Mathews (units unknown) (unknown) (unknown) (no date) (unknown) (unknown) Please call e office for an appointment. Please return to the Emergency (units unknown) (unknown) (unknown) (no date) (unknown) (unknown) Plt Count (150 -400) X103/uL (units unknown) (unknown) (unknown) (no date) (unknown) (unknown) Plt Count 244 (150-400) X103/uL (units unknown) (unknown) (unknown) (no date) (unknown) (unknown) Potassium (3.4 -5.1) mmol/L (units unknown) (unknown) (unknown) (no date) (unknown) (unknown) Potassium 4.1 (3.4-5.1) mmol/L (units unknown) (unknown) (unknown) (no date) (unknown) (unknown) Prescriptions: (unit s unknown) (unknown) (unknown) (no date) (unknown) (unknown) Previous Rx's (units unknown) (unknown) (unknown) (no date) (unknown) (unknown) Procedure: CT cervical spine wo con (units unknown) (unknown) (unknown) (no date) (unknown) (unknown) Procedure: CT head/brain wo con (units unknown) (unknown) (unknown) (no date) (unknown) (unknown) Procedure: XR KUB (u nits unknown) (unknown) (unknown) (no date) (unknown) (unknown) Pulse Oximetry 96 97 97 (units unknown) (unknown) (unknown) (no date) (unknown) (unknown) Pulse Oximetry 97 97 (units unknown) (unknown) (unknown) (no date) (unknown) (unknown) Pulse Oximetry 97 98 (units unknown) (unknown) (unknown) (no date) (unknown) (unknown) Pulse Oximetry 97 (u nits unknown) (unknown) (unknown) (no date) (unknown) (unknown) Pulse Oximetry 98 07/04/22 12:36 (units unknown)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 related to balance due to his TBI. Patient states (units unknown) (unknown) (unknown) (no date) (unknown) (unknown) some incontine nce yesterday. We had to get a cath urine from you as you were (units unknown) (unknown) (unknown) (no date) (unknown) (unknown) superior ribs are intact.? (units unknown) (unknown) (unknown) (no date) (unknown) (unknown) suspicious (units unknown) (unknown) (unknown) (no date) (unknown) (unknown) symptoms I do recommend you follow-up with Urology, it does not look like you (units unknown) (unknown) (unknown) (no date) (unknown) (unknown) taking this be cause they told him this would slow him down rather than speed him (units unknown) (unknown) (unknown) (no date) (unknown) (unknown) tenderness, ne gative Rovsing sign. No CVA tenderness. (units unknown) (unknown) (unknown) (no date) (unknown) (unknown) that he has ch ronic headaches since his TBI but has a severe headache today he (units unknown) (unknown) (unknown) (no date) (unknown) (unknown) to his headach e and TBI history. These returned unremarkable. Without changes (units unknown) (unknown) (unknown) (no date) (unknown) (unknown) to the (units unknown) (unknown) (unknown) (no date) (unknown) (unknown) tobacco type: vaping (units unknown) (unknown) (unknown) (no date) (unknown) (unknown) tonsillar hype rtrophy or exudate. Airway patent. (units unknown) (unknown) (unknown) (no date) (unknown) (unknown) trazodone AdvR eac Verified 07/05/22 07:15 (units unknown) (unknown) (unknown) (no date) (unknown) (unknown) unable to pee it does not look like your retaining urine but given your recent (units unknown) (unknown) (unknown) (no date) (unknown) (unknown) unremarkable l abs. Pt has History of TBI with persistent neuro symptoms and (units unknown) (unknown) (unknown) (no date) (unknown) (unknown) unsteady gait with frequent headaches, also Hx tardive dyskinesia. Today (units unknown) (unknown) (unknown) (no date) (unknown) (unknown) up. Patient al so states that he has been leaking urine a little bit and (units unknown) (unknown) (unknown) (no date) (unknown) (unknown) urine has been more dark than usual. States typically ?I only Pee in the (units unknown) (unknown) (unknown) (no date) (unknown) (unknown) urine per bryanna ent this is likely due to shy bladder, he states he has extreme (units unknown) (unknown) (unknown) (no date) (unknown) (unknown) urine upon arr ival to the emergency department. He was given fluids 1 L NS IV (units unknown) (unknown) (unknown) (no date) (unknown) (unknown) vertex, with c oronal and sagittal reformats.? For radiation dose reduction, the (units unknown) (unknown) (unknown) (no date) (unknown) (unknown) was used:? aut omated exposure control, adjustment of mA and/or kV according to (units unknown) (unknown) (unknown) (no date) (unknown) (unknown) yesterday had an episode where he realized he was peeing but he was not very (units unknown) (unknown) (unknown) (no date) (unknown) (unknown) yesterday he w as feeling a little bit of burping and some gas. He denies any (units unknown) (unknown) (unknown) (no date) (unknown) (unknown) your stools an d move things through but it is possible that you just have a (units unknown) (unknown) Result panel 4 (unknown) (no date) (unknown) (unknown) (no value) (units unknown) (unknown) (unknown) (no date) (unknown) (unknown) #20 tabs (units unknown) (unknown) (unknown) (no date) (unknown) (unknown) <Electronicall y signed by Galo Arellano MD> (units unknown) (unknown) (unknown) (no date) (unknown) (unknown) 07/05/22 07:21 (unit s unknown) (unknown) (unknown) (no date) (unknown) (unknown) 07/05/22 (units unknown) (unknown) (unknown) (no date) (unknown) (unknown) 07/15/22 2144 (units unknown) (unknown) (unknown) (no date) (unknown) (unknown) 07:15 (units unknown) (unknown) (unknown) (no date) (unknown) (unknown) 1 tab PO Q6H P RN (Reason: pain) Qty: 10 0RF (units unknown) (unknown) (unknown) (no date) (unknown) (unknown) 1,500 mg PO Q8 H PRN (Reason: muscle spasm) Qty: 20 0RF (units unknown) (unknown) (unknown) (no date) (unknown) (unknown) 2290 (units unknown) (unknown) (unknown) (no date) (unknown) (unknown) ? (units unknown) (unknown) (unknown) (no date) (unknown) (unknown) Activity Restrictions/Addition al Instructions: (units unknown) (unknown) (unknown) (no date) (unknown) (unknown) After history and exam MRI lumbar spine ordered (units unknown) (unknown) (unknown) (no date) (unknown) (unknown) Age/Sex: 46 / M (uni ts unknown) (unknown) (unknown) (no date) (unknown) (unknown) Alignment:? No significant spondylolisthesis. (units unknown) (unknown) (unknown) (no date) (unknown) (unknown) Allergies (units unknown) (unknown) (unknown) (no date) (unknown) (unknown) Allergy/AdvRea c Type Severity Reaction Status Date / Time (units unknown) (unknown) (unknown) (no date) (unknown) (unknown) Approved by: Matthew Harper M.D. on 07/05/2022 at 9:40 ? (units unknown) (unknown) (unknown) (no date) (unknown) (unknown) BACK: No flank tenderness. No midline lumbar spine tenderness or step-off. No (units unknown) (unknown) (unknown) (no date) (unknown) (unknown) Bladder incont inence, Chronic back pain, Acute lumbar radiculopathy (units unknown) (unknown) (unknown) (no date) (unknown) (unknown) Blood Pressure 154/82 H 07/05/22 07:15 (units unknown) (unknown) (unknown) (no date) (unknown) (unknown) Blood Pressure 154/82 H (units unknown) (unknown) (unknown) (no date) (unknown) (unknown) CARDIOVASCULAR : Regular rate and rhythm without murmurs (units unknown) (unknown) (unknown) (no date) (unknown) (unknown) CARDIOVASCULAR : negative chest pain, palpitations (units unknown) (unknown) (unknown) (no date) (unknown) (unknown) CC: Back pain incontinence paresthesia (units unknown) (unknown) (unknown) (no date) (unknown) (unknown) COMPARISON:? None. ( units unknown) (unknown) (unknown) (no date) (unknown) (unknown) Chief Complain t: Recheck/Abnormal Lab/Rx (units unknown) (unknown) (unknown) (no date) (unknown) (unknown) Clinical Impression: (units unknown) (unknown) (unknown) (no date) (unknown) (unknown) Complicating co-morbidities: History of cauda equina (units unknown) (unknown) (unknown) (no date) (unknown) (unknown) Consider CT to further evaluate bony details if necessary.? (units unknown) (unknown) (unknown) (no date) (unknown) (unknown) Cord:? Cord terminates in normal position.? Normal appearance of the cauda (units unknown) (unknown) (unknown) (no date) (unknown) (unknown) Course (units unknown) (unknown) (unknown) (no date) (unknown) (unknown) : 7 Acct:[id number] (units unknown) (unknown) (unknown) (no date) (unknown) (unknown) Data collected from: Patient (units unknown) (unknown) (unknown) (no date) (unknown) (unknown) Date of Servic e: 07/05/22 (units unknown) (unknown) (unknown) (no date) (unknown) (unknown) Denies any marko betes or IV drug use. No diabetes. Low risk factors for (units unknown) (unknown) (unknown) (no date) (unknown) (unknown) Departure (units unknown) (unknown) (unknown) (no date) (unknown) (unknown) Diagnosis: Chr onic back pain/acute lumbar radiculopathy/urinary incontinence (units unknown) (unknown) (unknown) (no date) (unknown) (unknown) Dictated by: Matthew Harper M.D. on 07/05/2022 at 9:35 ? ? (units unknown) (unknown) (unknown) (no date) (unknown) (unknown) Differential considered: Includes but not limited to cauda equina/lumbar (units unknown) (unknown) (unknown) (no date) (unknown) (unknown) Discharge Plan (unit s unknown) (unknown) (unknown) (no date) (unknown) (unknown) Discussion: Appropriate for discharge home. Exam and MRI are reassuring. No (units unknown) (unknown) (unknown) (no date) (unknown) (unknown) Does side bend s without difficulty as well. (units unknown) (unknown) (unknown) (no date) (unknown) (unknown) ED Orders (units unknown) (unknown) (unknown) (no date) (unknown) (unknown) ENT: Mucous me mbranes moist. (units unknown) (unknown) (unknown) (no date) (unknown) (unknown) ER Physician: Galo Arellano MD (units unknown) (unknown) (unknown) (no date) (unknown) (unknown) EXTREMITIES: N o gross deformities. (units unknown) (unknown) (unknown) (no date) (unknown) (unknown) EYES: Pupils e qual round (units unknown) (unknown) (unknown) (no date) (unknown) (unknown) Emergency Report (un its unknown) (unknown) (unknown) (no date) (unknown) (unknown) Exam Narrative: (uni ts unknown) (unknown) (unknown) (no date) (unknown) (unknown) Exam documente d above, pertinent findings include: Right medial thigh (units unknown) (unknown) (unknown) (no date) (unknown) (unknown) Exam (units unknown) (unknown) (unknown) (no date) (unknown) (unknown) FINDINGS:? (units unknown) (unknown) (unknown) (no date) (unknown) (unknown) GASTROINTESTIN AL: Abdomen soft, non-tender (units unknown) (unknown) (unknown) (no date) (unknown) (unknown) GASTROINTESTIN AL: negative nausea, vomiting, abdominal pain (units unknown) (unknown) (unknown) (no date) (unknown) (unknown) GENERAL: in no distress, not toxic not dyspneic (units unknown) (unknown) (unknown) (no date) (unknown) (unknown) GENERAL: negat onur chills, fatigue, malaise, fever, sweats. (units unknown) (unknown) (unknown) (no date) (unknown) (unknown) : negative d ysuria, positive incontinence and frequency, negative hematuria (units unknown) (unknown) (unknown) (no date) (unknown) (unknown) General (units unknown) (unknown) (unknown) (no date) (unknown) (unknown) HEAD: Normocephalic. (units unknown) (unknown) (unknown) (no date) (unknown) (unknown) HEENT: negativ e sinus pain, ear pain, sore throat (units unknown) (unknown) (unknown) (no date) (unknown) (unknown) HPI - Recheck/Abnormal Lab/Rx (units unknown) (unknown) (unknown) (no date) (unknown) (unknown) HPI narrative: (unit s unknown) (unknown) (unknown) (no date) (unknown) (unknown) He does have established neuro spine provider at [facility]. Not (units unknown) (unknown) (unknown) (no date) (unknown) (unknown) History of Pre sent Illness (units unknown) (unknown) (unknown) (no date) (unknown) (unknown) IMPRESSION:? N o central stenosis identified.? Mild degenerative disease and (units unknown) (unknown) (unknown) (no date) (unknown) (unknown) INDICATIONS:? Back pain/urinary incontinence/saddle paresthesia (units unknown) (unknown) (unknown) (no date) (unknown) (unknown) Image quality:? Good (units unknown) (unknown) (unknown) (no date) (unknown) (unknown) Imaging Data (units unknown) (unknown) (unknown) (no date) (unknown) (unknown) Imaging studie s independently reviewed: MRI no acute process of the lumbar (units unknown) (unknown) (unknown) (no date) (unknown) (unknown) Initial Vital Signs (units unknown) (unknown) (unknown) (no date) (unknown) (unknown) Initial Vital Signs: (units unknown) (unknown) (unknown) (no date) (unknown) (unknown) Instructions: Managing Chronic Low Back Pain, Urinary Incontinence -- Male, DI (units unknown) (unknown) (unknown) (no date) (unknown) (unknown) [address] [address] (units unknown) (unknown) (unknown) (no date) (unknown) (unknown) KUB as well as CBC urinalysis. White count normal. Urinalysis unremarkable for (units unknown) (unknown) (unknown) (no date) (unknown) (unknown) L1-L2:? Mild f acet arthropathy.? No stenosis. (units unknown) (unknown) (unknown) (no date) (unknown) (unknown) L2-L3:? Mild f acet arthropathy.? No stenosis. (units unknown) (unknown) (unknown) (no date) (unknown) (unknown) L3-L4:? There is a mild diffuse disc bulge and vmiy-re-npqyurnf facet (units unknown) (unknown) (unknown) (no date) (unknown) (unknown) L4-L5:? Fusion level, with some surrounding metallic artifact.? No central (units unknown) (unknown) (unknown) (no date) (unknown) (unknown) L4-S1 fusion construct.? The neural foramen are not well evaluated in this (units unknown) (unknown) (unknown) (no date) (unknown) (unknown) L5-S1:? Fusion level, without central stenosis identified. (units unknown) (unknown) (unknown) (no date) (unknown) (unknown) MDM - Recheck/Abnormal Lab/Rx (units unknown) (unknown) (unknown) (no date) (unknown) (unknown) MDM Narrative (units unknown) (unknown) (unknown) (no date) (unknown) (unknown) MDM (units unknown) (unknown) (unknown) (no date) (unknown) (unknown) MR lumbar spin e wo con Stat (units unknown) (unknown) (unknown) (no date) (unknown) (unknown) MRI lumbar spine: (u nits unknown) (unknown) (unknown) (no date) (unknown) (unknown) MUSCULOSKELETA L: negative muscle or bony pain, positive back pain (units unknown) (unknown) (unknown) (no date) (unknown) (unknown) Marrow:? L4-S1 spinal fusion hardware is in place.? There is osseous integration (units unknown) (unknown) (unknown) (no date) (unknown) (unknown) Medical decisi on making narrative: (units unknown) (unknown) (unknown) (no date) (unknown) (unknown) Medical record s reviewed: Medical records reviewed from yesterday (units unknown) (unknown) (unknown) (no date) (unknown) (unknown) Medication Instructions Recorded (units unknown) (unknown) (unknown) (no date) (unknown) (unknown) Mode of arriva l: Ambulatory (units unknown) (unknown) (unknown) (no date) (unknown) (unknown) NECK: Trachea midline. (units unknown) (unknown) (unknown) (no date) (unknown) (unknown) NEURO: AOx4. S teady self gait in hallway. No ataxia. Strong bilateral (units unknown) (unknown) (unknown) (no date) (unknown) (unknown) NEUROLOGIC: Po sitive weakness, numbness (units unknown) (unknown) (unknown) (no date) (unknown) (unknown) Narrative (units unknown) (unknown) (unknown) (no date) (unknown) (unknown) Narrative: (units unknown) (unknown) (unknown) (no date) (unknown) (unknown) No Action (units unknown) (unknown) (unknown) (no date) (unknown) (unknown) Noncontrast sa gittal T1 spin echo and T2 fast echo, sagittal STIR, and T2 fast (units unknown) (unknown) (unknown) (no date) (unknown) (unknown) Ordered: (units unknown) (unknown) (unknown) (no date) (unknown) (unknown) Orders (units unknown) (unknown) (unknown) (no date) (unknown) (unknown) Oxygen Deliver y Method Room Air 07/05/22 07:15 (units unknown) (unknown) (unknown) (no date) (unknown) (unknown) Oxygen Deliver y Method Room Air (units unknown) (unknown) (unknown) (no date) (unknown) (unknown) PROCEDURE:? MR LUMBAR SPINE WO CON (units unknown) (unknown) (unknown) (no date) (unknown) (unknown) PSYCH: Not anx ious, is cooperative (units unknown) (unknown) (unknown) (no date) (unknown) (unknown) Patient Dispos ition: Home (units unknown) (unknown) (unknown) (no date) (unknown) (unknown) Patient History (uni ts unknown) (unknown) (unknown) (no date) (unknown) (unknown) Patient here w ith his son. Complains of chronic lower back pain however in the (units unknown) (unknown) (unknown) (no date) (unknown) (unknown) Patient: Corbin Barrera MR#: [id number] (units unknown) (unknown) (unknown) (no date) (unknown) (unknown) Please do take uhzk-omy-ybfqlsn stool softeners or laxatives to help for bowel (units unknown) (unknown) (unknown) (no date) (unknown) (unknown) Prescriptions: (unit s unknown) (unknown) (unknown) (no date) (unknown) (unknown) Previous Rx's (units unknown) (unknown) (unknown) (no date) (unknown) (unknown) Pulse Oximetry 99 07/05/22 07:15 (units unknown) (unknown) (unknown) (no date) (unknown) (unknown) Pulse Oximetry 99 (u nits unknown) (unknown) (unknown) (no date) (unknown) (unknown) Pulse Rate 85 07/05/22 07:15 (units unknown) (unknown) (unknown) (no date) (unknown) (unknown) Pulse Rate 85 (units unknown) (unknown) (unknown) (no date) (unknown) (unknown) RESPIRATORY: C lear to auscultation. Breath sounds equal bilaterally. No wheezes, (units unknown) (unknown) (unknown) (no date) (unknown) (unknown) RESPIRATORY: n egative dyspnea, cough (units unknown) (unknown) (unknown) (no date) (unknown) (unknown) ROS Unobtainab le: All systems reviewed + are unremarkable except as noted in HPI (units unknown) (unknown) (unknown) (no date) (unknown) (unknown) Radiologist's Impression: (units unknown) (unknown) (unknown) (no date) (unknown) (unknown) Re-evaluations : Reviewed results with patient. Referral for Urology provided (units unknown) (unknown) (unknown) (no date) (unknown) (unknown) Referrals: (units unknown) (unknown) (unknown) (no date) (unknown) (unknown) Related Data (units unknown) (unknown) (unknown) (no date) (unknown) (unknown) Respiratory Ra te 18 07/05/22 07:15 (units unknown) (unknown) (unknown) (no date) (unknown) (unknown) Respiratory Rate 18 (units unknown) (unknown) (unknown) (no date) (unknown) (unknown) Review of Systems (u nits unknown) (unknown) (unknown) (no date) (unknown) (unknown) SKIN: Warm and dry ( units unknown) (unknown) (unknown) (no date) (unknown) (unknown) SKIN: negative rash, skin lesions (units unknown) (unknown) (unknown) (no date) (unknown) (unknown) Erick Ramos MD [Non-Staff] (units unknown) (unknown) (unknown) (no date) (unknown) (unknown) Signed By: (units unknown) (unknown) (unknown) (no date) (unknown) (unknown) Smoking Status : Current every day smoker (units unknown) (unknown) (unknown) (no date) (unknown) (unknown) Social History (units unknown) (unknown) (unknown) (no date) (unknown) (unknown) Soft tissues:? Left renal cyst is partially seen.? No paravertebral hematoma is (units unknown) (unknown) (unknown) (no date) (unknown) (unknown) Source: patient (uni ts unknown) (unknown) (unknown) (no date) (unknown) (unknown) Specific levels: (un its unknown) (unknown) (unknown) (no date) (unknown) (unknown) Stand Alone Fo anay: Patient Portal/API (units unknown) (unknown) (unknown) (no date) (unknown) (unknown) Stated Complai nt: Back pain (units unknown) (unknown) (unknown) (no date) (unknown) (unknown) Substance Use Type: marijuana (units unknown) (unknown) (unknown) (no date) (unknown) (unknown) T12-L1:? No stenosis . (units unknown) (unknown) (unknown) (no date) (unknown) (unknown) TECHNIQUE:? (units unknown) (unknown) (unknown) (no date) (unknown) (unknown) Temperature 98 .3 F 07/05/22 07:15 (units unknown) (unknown) (unknown) (no date) (unknown) (unknown) Temperature 98.3 F ( units unknown) (unknown) (unknown) (no date) (unknown) (unknown) Time Seen by Provider: 07/05/22 06:58 (units unknown) (unknown) (unknown) (no date) (unknown) (unknown) Treatments: No ne required at this time (units unknown) (unknown) (unknown) (no date) (unknown) (unknown) UTI. (units unknown) (unknown) (unknown) (no date) (unknown) (unknown) Vital Signs - 8 hr ( units unknown) (unknown) (unknown) (no date) (unknown) (unknown) Vital Signs (units unknown) (unknown) (unknown) (no date) (unknown) (unknown) Vital signs: (units unknown) (unknown) (unknown) (no date) (unknown) (unknown) abscess. Emilee nt seen here yesterday for abdominal pain back pain. Had x-ray (units unknown) (unknown) (unknown) (no date) (unknown) (unknown) acute neuro de ficits at this time. Patient will need to follow up with Urology (units unknown) (unknown) (unknown) (no date) (unknown) (unknown) and below (units unknown) (unknown) (unknown) (no date) (unknown) (unknown) arthropathy.? Mild ( units unknown) (unknown) (unknown) (no date) (unknown) (unknown) been given to you for your urinary problem/incontinence. Return if worse if any (units unknown) (unknown) (unknown) (no date) (unknown) (unknown) bilateral neur al foraminal narrowing.? No central stenosis. (units unknown) (unknown) (unknown) (no date) (unknown) (unknown) equina nerve (units unknown) (unknown) (unknown) (no date) (unknown) (unknown) evaluation and review of today's MRI of your lower back. Today's exam is (units unknown) (unknown) (unknown) (no date) (unknown) (unknown) fluctuance. No erythema. Able to lean forward and back without difficulty. (units unknown) (unknown) (unknown) (no date) (unknown) (unknown) for Lumbar Radiculopathy (units unknown) (unknown) (unknown) (no date) (unknown) (unknown) for him. At th is time MRI is reassuring as well as physical exam. Patient (units unknown) (unknown) (unknown) (no date) (unknown) (unknown) for other poss ible sources of urinary incontinence. Patient has established (units unknown) (unknown) (unknown) (no date) (unknown) (unknown) foraminal narr owing at L3-L4.? (units unknown) (unknown) (unknown) (no date) (unknown) (unknown) hydrocodone 5 mg-acetaminophen 325 1 tab PO Q6H PRN pain #10 tabs 05/16/22 (units unknown) (unknown) (unknown) (no date) (unknown) (unknown) hydrocodone-ac etamino phen 5-325 mg tablet (units unknown) (unknown) (unknown) (no date) (unknown) (unknown) identified. (units unknown) (unknown) (unknown) (no date) (unknown) (unknown) intact bilater al feet and toes. Strong rectal tone. There is slight numbness (units unknown) (unknown) (unknown) (no date) (unknown) (unknown) interbody spac ers.? No acute fractures identified on T2 weighted images. (units unknown) (unknown) (unknown) (no date) (unknown) (unknown) may be performed.? ( units unknown) (unknown) (unknown) (no date) (unknown) (unknown) metallic artifact. ( units unknown) (unknown) (unknown) (no date) (unknown) (unknown) methocarbamol 750 mg tablet 1,500 mg PO Q8H PRN muscle spasm 05/16/22 (units unknown) (unknown) (unknown) (no date) (unknown) (unknown) methocarbamol 750 mg tablet (units unknown) (unknown) (unknown) (no date) (unknown) (unknown) mg tablet (units unknown) (unknown) (unknown) (no date) (unknown) (unknown) movements. Ple ase do see your spine surgeon at [facility] for re (units unknown) (unknown) (unknown) (no date) (unknown) (unknown) neck pain as w gary. Patient has history of cauda equina syndrome 3 years ago and (units unknown) (unknown) (unknown) (no date) (unknown) (unknown) need for laxat natasha and stool softeners. Return precautions reviewed with him. (units unknown) (unknown) (unknown) (no date) (unknown) (unknown) neural (units unknown) (unknown) (unknown) (no date) (unknown) (unknown) neurosurgery brian leal at [facility]. No prescriptions indicated this (units unknown) (unknown) (unknown) (no date) (unknown) (unknown) of tardive dys kinesia as well. However with his walking he states at times is (units unknown) (unknown) (unknown) (no date) (unknown) (unknown) off balance. N o fall or injury. Denies any fever chills. Patient has baseline (units unknown) (unknown) (unknown) (no date) (unknown) (unknown) paresthesia (units unknown) (unknown) (unknown) (no date) (unknown) (unknown) past 1 week diaz s had urinary incontinence and right thigh tingling. Has history (units unknown) (unknown) (unknown) (no date) (unknown) (unknown) patellar refle xes and ankle flexion-extension. It wiggles toes. Light touch (units unknown) (unknown) (unknown) (no date) (unknown) (unknown) questions or concerns. May continue home medications. (units unknown) (unknown) (unknown) (no date) (unknown) (unknown) radiculopathy/ lumbar epidural abscess (units unknown) (unknown) (unknown) (no date) (unknown) (unknown) rales, or rhonchi. ( units unknown) (unknown) (unknown) (no date) (unknown) (unknown) reassuring and MRI results reassuring at this time. Referral for Urology has (units unknown) (unknown) (unknown) (no date) (unknown) (unknown) region due to (units unknown) (unknown) (unknown) (no date) (unknown) (unknown) roots. (units unknown) (unknown) (unknown) (no date) (unknown) (unknown) seen at [facility] for surgery and has been doing well. (units unknown) (unknown) (unknown) (no date) (unknown) (unknown) spin echo (units unknown) (unknown) (unknown) (no date) (unknown) (unknown) spine (units unknown) (unknown) (unknown) (no date) (unknown) (unknown) states his ins urance does not cover jfuq-hht-jlzhtxf medications which she does (units unknown) (unknown) (unknown) (no date) (unknown) (unknown) stenosis is (units unknown) (unknown) (unknown) (no date) (unknown) (unknown) through the uma mbar spine.? In cases with scoliosis, additional coronal T2 fast (units unknown) (unknown) (unknown) (no date) (unknown) (unknown) time. (units unknown) (unknown) (unknown) (no date) (unknown) (unknown) to the right groin/thigh compared to the left. (units unknown) (unknown) (unknown) (no date) (unknown) (unknown) tobacco type: vaping (units unknown) (unknown) (unknown) (no date) (unknown) (unknown) toxic at [facility]. Otherwise no neuro deficits (units unknown) (unknown) (unknown) (no date) (unknown) (unknown) trazodone AdvR eac Verified 07/05/22 07:15 (units unknown) (unknown)
--- NOTE | 2022-10-06 15:23 | ED Physician Documentation ---
PD HPI UPPER EXT INJURY - Stated complaint Stated Complaint: LT ARM INJURY - Chief complaint Chief Complaint: Trauma Ext - History obtained from History obtained from: Patient - History of Present Illness Location: Left, Hand Type of injury: Twist (he was tightening a blade on saw and had a twisting motion abruptly as hand slipped, causing outward movement of little finger, with pain 5th MC area. No laceration.) Where injury occurred: Work Timing - onset: Today Timing - details: Abrupt onset, Still present Worsened by: Moving, Palpating Review of Systems Skin: denies: Abrasion (s), Laceration (s) Neurologic: denies: Focal weakness, Numbness PD PAST MEDICAL HISTORY - Past Medical History Cardiovascular: Hypertension, High cholesterol Respiratory: None Endocrine/Autoimmune: None GI: GERD : None HEENT: Chronic vision loss Psych: Bipolar disorder, Post traumatic stress disorder Musculoskeletal: Chronic back pain Derm: None - Past Surgical History Ortho: Spine surgery, Other HEENT: Tonsil/Adenoidectomy - Present Medications Home Medications: Ambulatory Orders Medication Instructions Recorded Confirmed [place] Carbonate 1,200 mg PO DAILY 03/03/19 05/08/22 Cholecalciferol [Vitamin D3] 50,000 unit PO OAW 03/29/20 05/08/22 Deutetrabenazine [Austedo] 12 mg ORAL TID 05/08/22 05/08/22 Dextroamphetamine/Amphetamine 15 mg ORAL TID 05/08/22 05/08/22 [Adderall 15 mg Tablet] [place] ER [Lithobid] 300 mg ORAL HS 05/08/22 05/08/22 clonazePAM [Clonazepam] 1 mg ORAL TID 05/08/22 05/08/22 lamoTRIgine [Lamictal] 200 mg PO DAILY PM 05/08/22 05/08/22 - Allergies Allergies/Adverse Reactions: Allergies Allergy/AdvReac Type Severity Reaction Status Date / Time methocarbamol [From Robaxin] AdvReac Unknown Verified 10/06/22 14:40 trazodone AdvReac Respiratory Verified 10/06/22 14:40 PD ED PE NORMAL - Vitals Vital signs reviewed: Yes - General General: Alert and oriented X 3, No acute distress, Well developed/nourished - Derm Derm: Normal color, Warm and dry - Extremities Extremities: Other (left hand with tender and some swelling over mid 5th MC area. No skin lesions. Normal sensation and cap refill in finger. Flexion limited with pain but no obvious malrotation. ) - Neuro Neuro: No motor deficit, No sensory deficit Results - Vitals Vitals: Vital Signs - 24 hr 10/06/22 10/06/22 14:34 16:09 Temperature 37.1 C Heart Rate 65 78 Respiratory 17 16 Rate Blood Pressure 126/89 H 140/97 H O2 Saturation 100 100 Oxygen O2 Source Room air - Rads (name of study) left little finger Relevant Findings:: Prelim report reviewed, EMP independent interpretation of test (oblique shaft fracture 5th MC with slight displacement. No angulation. ), See rad report Procedures - Splint (location) - Minor left ulnar gutter Splint applied by: Tech Type of splint: Ulnar gutter (velcro type) Other: Patient tolerated well, Sling provided PD Medical Decision Making - ED course Complexity details: reviewed results, considered differential (twisting movment of hand and perhaps some impact into tool. Pain 5th MC area and xray showing shaft fracture. SPlinted and will refer to Ortho for follow up.), d/w patient Departure - Departure Disposition: Home, Self Care Clinical Impression: Closed fracture of 5th metacarpal Qualifiers: Encounter type: initial encounter Metacarpal location: shaft Fracture alignment: nondisplaced Laterality: left Qualified Code(s): S62.357A - Nondisplaced fracture of shaft of fifth metacarpal bone, left hand, initial encounter for closed fracture Condition: Stable Record reviewed to determine appropriate education?: Yes Instructions: ED Fx Boxer Follow-Up: Sotero Lucia MD [Primary Care Provider] - [facility] [Provider Group] Comments: You have a fracture of the shaft of the fifth metacarpal. These typically heal pretty well with being protected with the splint and light use of the hand. We did place a splint on there. Keep it on pretty much most the time. It can be removed briefly for cleaning or such. Minimal use of the hand over the next 2 to 3 weeks. It is good to ensure these are healing in place okay. I would suggest follow-up with orthopedics in about 1-1/2 weeks. Call Saturday for an appointment. Elevate ice and rest the hand often to reduce swelling. A sling to protect motion as well. Tylenol and/or ibuprofen as needed for pains. This will take about 4 to 6 weeks for healing. Discharge Date/Time: 10/06/22 16:09
--- NOTE | 2022-10-06 15:29 | XRAY Report ---
PROCEDURE: Finger(s) LT INDICATIONS: Injury TECHNIQUE: AP hand, 2 views of the fifth finger(s) acquired. COMPARISON: None. FINDINGS: Bones: Oblique fracture to the fifth metatarsal. Remainder the osseous structures unremarkable Soft tissues: No suspicious soft tissue calcifications or masses. IMPRESSION: Oblique minimally displaced fifth metacarpal fracture Reviewed by: Ubaldo Lo MD on 10/06/2022 2:28 PM AKTRISTAN Approved by: Ubaldo Lo MD on 10/06/2022 2:28 PM AKDT Station ID: [id number]
[2022-10-06] MEDS ORDERED: IBUPROFEN 600 MG TABLET PO STA (15:38)
[2022-10-06 16:14] VITALS: BP 140/97
== END 2022-10-06 16:09 | disposition home or self-care (01) ==
LOC: ED 14:18
DX: S62.357A Nondisplaced fracture of shaft of fifth metacarpal bone, left hand, initial encounter for closed fracture (principal); X50.1XXA Overexertion from prolonged static or awkward postures, initial encounter; Y99.0 Civilian activity done for income or pay; I10 Essential (primary) hypertension
CPT/HCPCS: 99283

== ENCOUNTER 2022-10-16 08:00 | Outpatient (CLI) | payer MEDICAID ==
--- NOTE | 2022-10-16 14:48 | XRAY Report ---
PROCEDURE: Finger(s) LT INDICATIONS: LEFT 5TH FINGER PAIN TECHNIQUE: AP hand, 2 views of the fifth finger(s) acquired. COMPARISON: None. FINDINGS: Bones: There is a moderately displaced oblique fracture of the mid/proximal aspect of the fifth meta carpal. Soft tissues: No suspicious soft tissue calcifications or masses. IMPRESSION: Fifth metacarpal fracture. Reviewed by: Elda Noble MD on 10/16/2022 2:46 PM PDT Approved by: Elda Noble MD on 10/16/2022 2:46 PM PDT Station ID: [id number]
== END 2022-10-16 23:59 | disposition home or self-care (01) ==
LOC: DI.WOS 08:00
PROVIDERS: ATTEND Physician Assistant Surgical
DX: S62.397A Other fracture of fifth metacarpal bone, left hand, initial encounter for closed fracture (principal)

== ENCOUNTER 2022-11-13 08:00 | Outpatient (CLI) | payer MEDICAID ==
--- NOTE | 2022-11-13 11:45 | XRAY Report ---
PROCEDURE: Hand 3 View LT INDICATIONS: LEFT 5TH MC FRACTURE TECHNIQUE: 3 views of the hand(s) acquired. COMPARISON: X-ray fingers 10/16/2022 FINDINGS: Bones: Stable alignment of mildly displaced mid fifth metacarpal fracture. Minimal interval bridging osteophyte. Soft tissues: No suspicious soft tissue calcifications or masses. IMPRESSION: Stable alignment of fifth mid metacarpal fracture with minimal interval healing. Reviewed by: Wendy Peña MD on 11/13/2022 11:44 AM PDT Approved by: Wnedy Peña MD on 11/13/2022 11:44 AM PDT Station ID: [id number]
== END 2022-11-13 23:59 | disposition home or self-care (01) ==
LOC: DI.WOS 08:00
PROVIDERS: ATTEND Orthopaedic Surgery
DX: S62.307D Unspecified fracture of fifth metacarpal bone, left hand, subsequent encounter for fracture with routine healing (principal)

== ENCOUNTER 2022-12-25 08:00 | Outpatient (CLI) | payer MEDICAID ==
--- NOTE | 2022-12-26 09:43 | XRAY Report ---
PROCEDURE: Hand 3 View LT INDICATIONS: LEFT 5TH MC FRACTURE TECHNIQUE: 3 views of the hand(s) acquired. COMPARISON: Prior hand series dated 11/13/2022 FINDINGS: Bones: Slight progressive healing of spiral fracture involving the mid shaft of the fifth metacarpus with the fracture lucency is less distinct and there is slight increase in surrounding callus. Backg round osteoarthritic changes redemonstrated. Soft tissues: No suspicious soft tissue calcifications . IMPRESSION: Slight progressive healing of mildly displaced spiral fracture involving the midshaft of the fifth me tacarpus. Reviewed by: IZZY Lieberman on 12/26/2022 9:41 AM PDT Approved by: Jose Pham MD on 12/26/2022 9:41 AM PDT Station ID: [id number]
== END 2022-12-25 23:59 | disposition home or self-care (01) ==
LOC: DI.WOS 08:00
PROVIDERS: ATTEND Orthopaedic Surgery
DX: S62.327D Displaced fracture of shaft of fifth metacarpal bone, left hand, subsequent encounter for fracture with routine healing (principal)

== ENCOUNTER 2023-02-12 08:10 | Outpatient (CLI) | payer MEDICAID ==
[2023-02-12 12:34] LABS: BASOPHILS # (AUTO) 0.1 10^3/uL (0.0-0.1); BASOPHILS % (AUTO) 1.4 %; EOSINOPHILS # (AUTO) 0.2 10^3/uL (0.0-0.7); EOSINOPHILS % (AUTO) 4.8 %; HCT - HEMATOCRIT 40.5 % (42.0-52.0); HGB - HEMOGLOBIN 13.4 g/dL (14.0-18.0); LYMPHOCYTES # (AUTO) 0.9 10^3/uL (1.5-3.5); LYMPHOCYTES % (AUTO) 25.1 %; MEAN CORPUSCULAR HEMOGLOBIN 30.4 pg (27.0-31.0); MEAN CORPUSCULAR HGB CONC 33.1 g/dL (32.0-36.0); MEAN CORPUSCULAR VOLUME 91.8 fL (80.0-94.0); MEAN PLATELET VOLUME 10.8 fL (7.4-11.4); MONOCYTES # (AUTO) 0.2 10^3/uL (0.0-1.0); MONOCYTES % (AUTO) 6.5 %; NEUTROPHILS # (AUTO) 2.2 10^3/uL (1.5-6.6); NEUTROPHILS % (AUTO) 61.9 %; PLT - PLATELET COUNT 225 10^3/uL (130-450); RED BLOOD COUNT 4.41 10^6/uL (4.70-6.10); RED CELL DISTRIBUTION WIDTH 12.2 % (12.0-15.0); WHITE BLOOD COUNT 3.5 x10^3/uL (4.8-10.8)
[2023-02-12 13:02] LABS: ALBUMIN 4.4 g/dL (3.2-5.5); ALBUMIN/GLOBULIN RATIO 1.9 (1.0-2.2); BILIRUBIN,TOTAL 1.5 mg/dL (0.2-1.0); CALCIUM 9.4 mg/dL (8.5-10.3); CREATININE 0.7 mg/dL (0.6-1.3); POTASSIUM 3.6 mmol/L (3.5-4.5); TOTAL PROTEIN 6.7 g/dL (6.4-8.9)
[2023-02-12 13:07] LABS: THYROID STIMULATING HORMONE 1.09 uIU/mL (0.34-5.60)
[2023-02-12 13:08] LABS: LITHIUM 0.15 mmol/L
== END 2023-02-12 08:11 | disposition home or self-care (01) ==
LOC: LAB.N 08:10
PROVIDERS: ATTEND Nurse Practitioner
DX: F31.9 Bipolar disorder, unspecified (principal)
CPT/HCPCS: 36415; 80053; 80178; 84443; 85025

== ENCOUNTER 2023-10-04 14:15 | Outpatient (CLI) | payer MEDICAID | END 2023-10-04 14:30 | disposition home or self-care (01) | LOC: LAB.N 14:15 | PROVIDERS: ATTEND Nurse Practitioner | DX: S80.811A Abrasion, right lower leg, initial encounter (principal) | CPT/HCPCS: 87070; 87205 ==